=== PATIENT | male | born 1980 | race Caucasian/White ===

== ENCOUNTER 2016-09-25 16:14 | Emergency (ER) | payer MEDICAID, OTHER ==
[~2016-09-25] VITALS: Ht 182.9 cm; Wt 99.8 kg
[~2016-09-25 16:14] MED LIST: CLON1TAB3 PO; CLON1TAB36; LISI40TA PO; LOXA10CA PO; METO-333 PO; OMEP20CA12 PO
--- OUTSIDE RECORDS SUMMARY | 2016-09-25 16:20 | XMS REPORT ---
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 Role Phone PAIGE IRVIN CP Unavailable Allergies, Adverse Reactions, Alerts Substance Reaction Event Type Latex Info Not Available Drug Allergy Problems Problem Type Condition Code Onset Dates Condition Status Assessment Depression F32.9 Active Problem Anxiety F41.9 Active Problem Bipolar 1 disorder with moderate bassam F31.12 Active Problem Essential hypertension I10 Active Problem Bipolar disorder, current episode manic severe with psychotic features F31.2 Active Problem Anxiety disorder, unspecified F41.9 Active Problem Gastritis K29.70 Active Problem Mixed dyslipidemia E78.2 Active Medications Medication Code System Code Instructions Start Date End Date Status Dosage Cialis [facility] [address]-81 5 MG Orally every 24 hrs 1 tablet Klonopin [facility] [address]-75 1 mg Orally 3 times a day 1 tablet Lisinopril [facility] [address]-05 20 MG Orally Once a day Aug 09, 2015 1 tablet Zyprexa Zydis [facility] [address]-70 5 MG Orally once a day Aug 10, 2015 1 tablet on the tongue and allow to dissolve Zantac 150 Maximum Strength [facility] [address]-24 150 MG Orally Twice a day Aug 31, 2015 1 tablet Venlafaxine HCl ER [facility] [address]-43 37.5 MG Orally Once a day Sep 12, 2015 1 tablet with food Procedures Procedure Coding System Code Date Office Visit, Est Pt., Level 3 CPT-4 93654 Sep 12, 2015 Vital Signs Date/Time: Sep 12, 2015 Temperature 98 F Weight 296 lbs Height 70.0 in BMI 42.47 Index Blood Pressure Diastolic 84 mmHg Blood Pressure Systolic 118 mmHg Cardiac Monitoring Heart Rate 76 bpm Results No Known Results Summary Purpose [employer] Submission
[2016-09-25] MEDS ORDERED: LISI-552 (16:39)
[2016-09-25] MEDS ORDERED: ONDANSETRON 4 MG/2 ML (SDV) Z0FRAN IVP ONE (16:45)
[2016-09-25] MEDS ORDERED: NS IV 1000 ML 1,000 ML IV SCH (16:45)
[2016-09-25] MEDS ORDERED: LORazepam INJ 2 MG/ML (ATIVAN) VIAL IVP ONE (16:45)
[2016-09-25 16:57] LABS: BASOPHILS % (AUTO) 0 % (0-10); EOSINOPHILS % (AUTO) 0 % (0-10); LYMPHOCYTES # (AUTO) 1.1 X 10^3 (1.0-4.0); LYMPHOCYTES % (AUTO) 10 % (12-44); MEAN CORPUSCULAR HEMOGLOBIN 30 PG (25-34); MEAN CORPUSCULAR HGB CONC 37 G/DL (32-36); MEAN CORPUSCULAR VOLUME 81 FL (80-99); MEAN PLATELET VOLUME 9.9 FL (7.4-10.4); MONOCYTES # (AUTO) 0.4 X 10^3 (0.0-1.0); MONOCYTES % (AUTO) 4 % (0-12); NEUTROPHILS # (AUTO) 8.8 X 10^3 (1.8-7.8); NEUTROPHILS % (AUTO) 85 % (42-75); PLATELET COUNT 227 10^3/uL (130-400); RED BLOOD COUNT 5.49 10^6/uL (4.35-5.85); RED CELL DISTRIBUTION WIDTH 12.9 % (10.0-14.5); WHITE BLOOD COUNT 10.3 10^3/uL (4.3-11.0)
--- NOTE | 2016-09-25 17:01 | ED General ---
General Chief Complaint: General Problems/Pain Stated Complaint: N,V,D Nursing Triage Note: AMBULATED TO ROOM 03 WITH MULTIPLE COMPLAINTS BUT NOT LIMITED TOO - N/V/D THAT STARTED LAST NOC BUT QUIT 2 HRS AGO, CHEST PAIN OFF AND ON FOR A WEEK BUT CAME BACK TODAY WHILE VOMITING, RIGHT KNEE PAIN AFTER HYPEREXTENDING IT LAST WEEK, AND ANXIETY. ALSO STATES OTHERS IN HIS HOUSE HAS HAD N/V/D. Nursing Sepsis Screen: No Definite Risk Source of Information: Patient Exam Limitations: No Limitations History of Present Illness Time Seen by Provider: 16:58 Initial Comments To ER with nausea vomiting and watery diarrhea that began last night awakening him from sleep at 2 a.m. His children were ill with similar symptoms. State that they ate some chicken that had been following for a long time. He denies abdominal pain. He reports pain to the right knee which has been bothering him for several weeks and he is concerned that he may have a blood clot in that knee as well. No swelling. He does have some shortness of breath but he believes this may be anxiety. He also reports left-sided chest pain that he describes as an "twinge" and seems to be brought about by stress. He does smoke marijuana to help him relax in addition to clonazepam. No fevers or chills. Timing/Duration: 1-2 Days Severity: Moderate Associated Systoms: Chest PainNo Fever/Chills, Nausea/Vomiting Allergies and Home Medications Allergies Coded Allergies: NKANo Known Allergies (Verified Allergy, Unknown, 10/21/06) Home Medications Clonazepam 1 Mg Tablet #90 0.5 MG PO TID (Reported) Lisinopril 20 Mg Tablet #30 (Reported) Constitutional: see HPINo chills, No fever, malaise other (anxious) EENTM: see HPI Respiratory: no symptoms reportedNo hemoptysis, No orthopnea Cardiovascular: see HPI Genitourinary: no symptoms reported Musculoskeletal: no symptoms reported Skin: no symptoms reported Psychiatric/Neurological: No Symptoms Reported Hematologic/Lymphatic: No Symptoms Reported Immunological/Allergic: no symptoms reported Past Wqdjwgq-Wruajn-Lgmuba Hx Patient Social History Alcohol Use: Past History Recreational Drug Use: Yes Drug of Choice: POT Smoking Status: Never a Smoker Recent Foreign Travel: No Contact w/Someone Who Travel: No Recent Infectious Disease Expo: No Recent Hopitalizations: No Immunizations Up To Date Tetanus Booster (TDap): Unknown Surgeries HX Surgeries: Yes (X1 WISDOM TOOTH REMOVED,CUT FINGER REPAIRED) Surgeries: Appendectomy, Gallbladder Respiratory Hx Respiratory Disorders: No Cardiovascular Hx Cardiac Disorders: Yes Cardiac Disorders: Hypertension Reproductive System Hx Reproductive Disorders: No Genitourinary Hx Genitourinary Disorders: Yes (HX AGE 21-26 PERIODS OF INCONT.WHEN DRINKING) Gastrointestinal Hx Gastrointestinal Disorders: Yes Musculoskeletal Hx Musculoskeletal Disorders: No Endocrine Hx Endocrine Disorders: No HEENT HX ENT Disorders: No Cancer Hx Cancer: No Psychosocial Hx Psychiatric Problems: Yes Behavioral Health Disorders: Anxiety, Depression Integumentary HX Skin/Integumentary Disorder: No Blood Transfusions Hx Blood Disorders: No Physical Exam Vital Signs Vital Sign - Last 12Hours 09/25/16 16:25 Temp 98.0 Pulse 126 Resp 18 B/P 131/102 Capillary Refill : Less Than 3 Seconds General Appearance: No Apparent Distress WD/WN Anxious Obese Eyes: Bilateral Eye EOMI, Bilateral Eye Normal Inspection, Bilateral Eye PERRL HEENT: PERRL/EOMI TMs Normal Neck: Full Range of Motion Normal Inspection Respiratory: No Accessory Muscle Use No Respiratory Distress Cardiovascular: Normal Peripheral Pulses Tachycardia Gastrointestinal: Normal Bowel Sounds Non Tender Soft Extremity: Normal Capillary Refill Normal Inspection Other (the right knee is normal in appearance without ecchymosis, erythema, effusion and there is no swelling to the right lower extremity.) Neurologic/Psychiatric: Alert Oriented x3 No Motor/Sensory Deficits Skin: Normal Color Warm/Dry Progress/Results/Core Measures Results/Orders Lab Results Laboratory Tests Test 09/25/16 16:50 Range/Units Alanine Aminotransferase (ALT/SGPT) 18 0-55 U/L Albumin 4.2 3.2-4.5 G/DL Alkaline Phosphatase 65 40-136 U/L Anion Gap 11 5-14 MMOL/L Aspartate Amino Transf (AST/SGOT) 19 5-34 U/L BUN/Creatinine Ratio 15 Basophils # (Auto) 0.0 0.0-0.1 10^3/uL Basophils (%) (Auto) 0 0-10 % Blood Urea Nitrogen 14 7-18 MG/DL Calcium Level 8.7 8.5-10.1 MG/DL Carbon Dioxide Level 20 L 21-32 MMOL/L Chloride Level 101 98-107 MMOL/L Creatinine 0.94 0.60-1.30 MG/DL D-Dimer 0.40 0.00-0.49 UG/ML Eosinophils # (Auto) 0.0 0.0-0.3 10^3/uL Eosinophils (%) (Auto) 0 0-10 % Estimat Glomerular Filtration Rate > 60 Glucose Level 113 H 70-105 MG/DL Hematocrit 44 40-54 % Hemoglobin 16.3 13.3-17.7 G/DL Lymphocytes # (Auto) 1.1 1.0-4.0 X 10^3 Lymphocytes (%) (Auto) 10 L 12-44 % Mean Corpuscular Hemoglobin 30 25-34 PG Mean Corpuscular Hemoglobin Concent 37 H 32-36 G/DL Mean Corpuscular Volume 81 80-99 FL Mean Platelet Volume 9.9 7.4-10.4 FL Monocytes # (Auto) 0.4 0.0-1.0 X 10^3 Monocytes (%) (Auto) 4 0-12 % Neutrophils # (Auto) 8.8 H 1.8-7.8 X 10^3 Neutrophils (%) (Auto) 85 H 42-75 % Platelet Count 227 130-400 10^3/uL Potassium Level 4.2 3.6-5.0 MMOL/L Red Blood Count 5.49 4.35-5.85 10^6/uL Red Cell Distribution Width 12.9 10.0-14.5 % Sodium Level 132 L 135-145 MMOL/L Total Bilirubin 0.7 0.1-1.0 MG/DL Total Protein 7.0 6.4-8.2 G/DL Troponin I < 0.30 <0.30 NG/ML White Blood Count 10.3 4.3-11.0 10^3/uL My Orders Orders-BREANNE SWANSON SYSTEMS ARCHITECTURE ANALYST Cbc With Automated Diff (09/25/16 16:39) Comprehensive Metabolic Panel (09/25/16 16:39) Troponin I (09/25/16 16:39) Ekg Tracing (09/25/16 16:39) Saline Lock/Iv-Start (09/25/16 16:39) Ondansetron Injection (Zofran Injectio (09/25/16 16:45) Lorazepam Injection (Ativan Injection) (09/25/16 16:45) Ns Iv 1000 Ml (Sodium Chloride 0.9%) (09/25/16 16:45) Fibrin Degradation Products (09/25/16 16:52) Albuterol/Ipra Inhalation Soln (Duoneb I (09/25/16 17:15) Svn Sm Volume Nebulizer Rt-Rfs (09/25/16 17:11) Medications Given in ED Current Medications Medications Dose Ordered Sig/Tamra Route Start Time Stop Time Status Last Admin Dose Admin Ondansetron HCl 4 mg ONCE ONCE IVP 09/25/16 16:45 09/25/16 16:46 DC 09/25/16 16:50 4 MG Vital Signs/I&O Vital Sign - Last 12Hours 09/25/16 16:25 Temp 98.0 Pulse 126 Resp 18 B/P 131/102 Blood Pressure Mean: 112 Departure Impression Impression: Primary Impression: Anxiety Additional Impression: Nausea vomiting and diarrhea Disposition: HOME, SELF-CARE Condition: Stable Departure-Patient Inst. Decision time for Depature: 17:28 Referrals: NO,LOCAL PHYSICIAN (PCP/Family) Primary Care Physician Patient Instructions: Nausea and Vomiting, Adult Add. Discharge Instructions: 1. Drink plenty of fluids 2. Return to Er for any concerns 3. Nausea medication as directed 4. see your doctor later this week All discharge instructions reviewed with patient and/or family. Voiced understanding. Scripts Ondansetron (Zofran Odt)8 Mg Tab.rapdis8 Mg PO Q6H PRN NAUSEA/VOMITING #14 TAB Prov:BREANNE SWANSON APRN 09/25/16 BREANNE SWANSON APRN Sep 25, 2016 17:00
[2016-09-25 17:14] LABS: ALANINE AMINOTRANSFERASE 18 U/L (0-55); ALBUMIN 4.2 G/DL (3.2-4.5); ANION GAP 11 MMOL/L (5-14); ASPARTATE AMINO TRANSFERASE 19 U/L (5-34); BILIRUBIN,TOTAL 0.7 MG/DL (0.1-1.0); BLOOD UREA NITROGEN 14 MG/DL (7-18); BUN/CREATININE RATIO 15; CALCIUM 8.7 MG/DL (8.5-10.1); CARBON DIOXIDE 20 MMOL/L (21-32); CHLORIDE 101 MMOL/L (98-107); CREATININE SERUM 0.94 MG/DL (0.60-1.30); GFR ESTIMATED > 60; GLUCOSE 113 MG/DL (70-105); POTASSIUM 4.2 MMOL/L (3.6-5.0); SODIUM 132 MMOL/L (135-145)
[2016-09-25] MEDS ORDERED: RT-ALBUTEROL/IPRATROPIUM 3 ML (DUONEB) VIAL INH ONE (17:15)
[2016-09-25 17:19] LABS: TROPONIN I < 0.30 NG/ML (<0.30)
[2016-09-25] MEDS ORDERED: ONDA8TAB9 PO (17:29)
[2016-09-25 17:47] VITALS: BP 133/96
== END 2016-09-25 17:47 | disposition home or self-care (01) ==
LOC: EDUNIT# 16:14 → ER 16:16
DX: R11.2 Nausea with vomiting, unspecified (principal); R19.7 Diarrhea, unspecified; M79.661 Pain in right lower leg; I10 Essential (primary) hypertension; F41.9 Anxiety disorder, unspecified; F12.10 Cannabis abuse, uncomplicated; Z79.899 Other long term (current) drug therapy
CPT/HCPCS: 36415; 80053; 84484; 85025; 85379; 93005; 96361; 96374

== ENCOUNTER 2016-09-27 13:27 | Emergency (ER) | payer MEDICAID ==
[~2016-09-27] VITALS: Ht 182.9 cm; Wt 131.5 kg
[~2016-09-27 13:27] MED LIST changes: +LISI-552; +ONDA8TAB9 PO
[2016-09-27] MEDS ORDERED: OMEP20TA33 PO (13:46)
[2016-09-27] MEDS ORDERED: CLON1TAB PO (13:46)
--- NOTE | 2016-09-27 14:04 | ED Lower Extremity ---
General Chief Complaint: Lower Extremity Stated Complaint: R KNEE PAIN Nursing Triage Note: PT STATES HE WAS AT HIS [facility] [facility] ABOUT 2 WEEKS AGO, CC OF RT KNEE PAIN AND BI LAT GENERAL LEG PAIN. DENIES ANY TWISTING OR TRAUMA TO KNEE. Nursing Sepsis Screen: No Definite Risk Source: patient Exam Limitations: no limitations (BRYAN MENCHACA MD) History of Present Illness Time seen by provider: 13:59 Initial Comments This 36-year-old white male presents with a complaint of right knee pain. The patient's pain is moderate in degree, sharp in nature, and made worse with prolonged flexion. Patient had a previous medial collateral injury years ago which was treated conservatively with physical therapy. Patient denies recent trauma to the right knee. He has noted no swelling. Fortunately the patient's knee pain over the last several days is improving. He does not have an orthopedic surgeon. The patient has been under significant stress recently as he is self continued marijuana 4 days ago. (BRYAN MENCHACA MD) Allergies and Home Medications Allergies Coded Allergies: NKANo Known Allergies (Verified Allergy, Unknown, 10/21/06) Home Medications Clonazepam 1 Mg Tablet 1 MG PO TID (Reported) Lisinopril 20 Mg Tablet #30 (Reported) Naproxen 500 Mg Tablet #20 500 MG PO BID PRN PRN PAIN Prescribed by: TAMELA SIMENTAL on 09/27/16 1506 Omeprazole Magnesium 20 Mg Tablet.dr 20 MG PO PRN (Reported) Prednisone 20 Mg Tab #10 40 MG PO DAILY Prescribed by: TAMELA SIMENTAL on 09/27/16 1506 Constitutional: No chills, No fever EENTM: No blurred vision, No ear pain Respiratory: No cough Cardiovascular: No chest pain Gastrointestinal: No abdominal pain, No diarrhea, No nausea Genitourinary: No dysuria, No frequency Musculoskeletal: No back pain, joint pain (right knee) Skin: No change in color, No rash Psychiatric/Neurological: No Symptoms Reported (BRYAN MENCHACA MD) Past Hjgiyic-Dbpkyf-Luazrf Hx Patient Social History Alcohol Use: Denies Use Recreational Drug Use: Yes (THC) Drug of Choice: POT Smoking Status: Former Smoker Type Used: Cigarettes 2nd Hand Smoke Exposure: No Recent Foreign Travel: No Contact w/Someone Who Travel: No Recent Infectious Disease Expo: No Recent Hopitalizations: No (BRYAN MENCHACA MD) Immunizations Up To Date Tetanus Booster (TDap): Unknown (BRYAN MENCHACA MD) Seasonal Allergies Seasonal Allergies: Yes (BRYAN MENCHACA MD) Surgeries HX Surgeries: Yes (X1 WISDOM TOOTH REMOVED,CUT FINGER REPAIRED) Surgeries: Appendectomy, Gallbladder (BRYAN MENCHACA MD) Respiratory Hx Respiratory Disorders: No (BRYAN MENCHACA MD) Cardiovascular Hx Cardiac Disorders: Yes Cardiac Disorders: Hypertension (BRYAN MENCHACA MD) Neurological Hx Neurological Disorders: No (BRYAN MENCHACA MD) Reproductive System Hx Reproductive Disorders: No (BRYAN MENCHACA MD) Genitourinary Hx Genitourinary Disorders: Yes (HX AGE 21-26 PERIODS OF INCONT.WHEN DRINKING) (BRYAN MENCHACA MD) Gastrointestinal Hx Gastrointestinal Disorders: No (BRYAN MENCHACA MD) Musculoskeletal Hx Musculoskeletal Disorders: Yes Musculoskeletal Disorders: Chronic Back Pain (BRYAN MENCHACA MD) Endocrine Hx Endocrine Disorders: No (BRYAN MENCHACA MD) HEENT HX ENT Disorders: No (BRYAN MENCHACA MD) Cancer Hx Cancer: No (BRYAN MENCHACA MD) Psychosocial Hx Psychiatric Problems: Yes Behavioral Health Disorders: Anxiety, Depression (BRYAN MENCHACA MD) Integumentary HX Skin/Integumentary Disorder: No (BRYAN MENCHACA MD) Blood Transfusions Hx Blood Disorders: No (BRYAN MENCHACA MD) Reviewed Nursing Assessment Reviewed/Agree w Nursing PMH: Yes (BRYAN MENCHACA MD) Physical Exam Vital Signs Vital Sign - Last 12Hours 09/27/16 13:35 Temp 97.4 Pulse 97 Resp 20 B/P 142/99 Pulse Ox 99 O2 Delivery Room Air (TAMELA SIMENTAL) Vital Signs Capillary Refill : Less Than 3 Seconds (BRYAN MENCHACA MD) General Appearance: WD/WN no apparent distress HEENT: normal ENT inspection Neck: normal inspection Cardiovascular: regular rate, rhythm Respiratory: normal breath sounds Gastrointestinal: normal bowel sounds soft Back: normal inspection Hips: bilateral hip non-tender, bilateral hip normal inspection, bilateral hip normal range of motion Legs: bilateral leg non-tender, bilateral leg normal inspection, bilateral leg normal range of motion Knees: bilateral knee non-tender, bilateral knee normal inspection, bilateral knee normal range of motion Ankles: bilateral ankle non-tender, bilateral ankle normal inspection, bilateral ankle normal range of motion Feet: bilateral foot non-tender, bilateral foot normal inspection Neurologic/Tendon: normal sensation normal motor functions normal tendon functions Neurologic/Psychiatric: no motor/sensory deficits alert normal mood/affect oriented x 3 Skin: normal color warm/dry (BRYAN MENCHACA MD) Progress/Results/Core Measures Results/Orders Vital Signs/I&O Vital Sign - Last 12Hours 09/27/16 13:35 Temp 97.4 Pulse 97 Resp 20 B/P 142/99 Pulse Ox 99 O2 Delivery Room Air (TAMELA SIMENTAL) Blood Pressure Mean: 113 Diagnostic Imaging Diagonstic Imaging: Xray Plain Films/CT/US/NM/MRI: knee Comments FINDINGS: There is no acute fracture or dislocation. There is no significant knee effusion. There is small spurring involving the superior patellar near the quadriceps attachment. IMPRESSION: 1.: There is no acute fracture or dislocation. 2: There is mild spurring involving the superior aspect of the patella. Dictated on workstation # [id number] Reviewed: Reviewed by Me (radiology report reviewed by me) (TAMELA SIMENTAL) Departure Communication Progress Notes Patient seen and evaluated with Dr. Menchaca. Radiology findings discussed with the patient. Plan for discharge to home. (TAMELA SIMENTAL) Impression Impression: Primary Impression: Sprain of knee Disposition: 01 HOME, SELF-CARE Condition: Improved Departure-Patient Inst. Decision time for Depature: 15:04 (TAMELA SIMENTAL) Referrals: [facility] (PCP/Family) Primary Care Physician Patient Instructions: Knee Sprain (DC) Add. Discharge Instructions: All discharge instructions reviewed with patient and/or family. Voiced understanding. Medications as instructed. Tylenol Extra Strength over-the- counter as directed for pain. Elevate the right knee on pillows. Ice packs or heating pads as needed for pain. Activity as tolerated. Follow-up with your family practitioner if no improvement in symptoms in 7-10 days for possible need of outpatient MRI of the knee. Return to the emergency department for worsened symptoms or any other concerns. Scripts Naproxen (Naprosyn)500 Mg [id number] Mg PO BID PRN PAIN #20 TAB Ref 0 Prov:TAMELA SIMENTAL 09/27/16 Prednisone 20 Mg Tab40 Mg PO DAILY #10 TAB Ref 0 Prov:TAMELA SIMENTAL 09/27/16 BRYAN MENCHACA MD Sep 27, 2016 14:03 TAMELA SIMENTAL Sep 27, 2016 15:06
--- NOTE | 2016-09-27 14:22 | Diagnostic Imaging Report ---
CLINICAL INDICATION: Patient with right knee pain x2 weeks. No known injury. EXAM: X-ray of the right knee, three views. COMPARISON: None. FINDINGS: There is no acute fracture or dislocation. There is no significant knee effusion. There is small spurring involving the superior patellar near the quadriceps attachment. IMPRESSION: 1.: There is no acute fracture or dislocation. 2: There is mild spurring involving the superior aspect of the patella. Dictated by: Dictated on workstation # [id number]
[2016-09-27] MEDS ORDERED: PRD20T PO (15:06)
[2016-09-27] MEDS ORDERED: NAPR500T PO (15:06)
[2016-09-27 15:15] VITALS: BP 142/99
== END 2016-09-27 15:15 | disposition home or self-care (01) ==
LOC: EDUNIT# 13:27 → ER 13:28
DX: S89.91XA Unspecified injury of right lower leg, initial encounter (principal); F12.10 Cannabis abuse, uncomplicated; Z87.891 Personal history of nicotine dependence; X58.XXXA Exposure to other specified factors, initial encounter; Y92.39 Other specified sports and athletic area as the place of occurrence of the external cause; Y99.8 Other external cause status
CPT/HCPCS: 73562; 99283

== ENCOUNTER 2017-04-12 22:56 | Emergency (ER) | payer MEDICAID ==
[~2017-04-12] VITALS: Ht 182.9 cm; Wt 131.5 kg
[~2017-04-12 22:56] MED LIST changes: +CLON1TAB PO; +NAPR500T PO; +OMEP20TA33 PO; +PRD20T PO
[2017-04-12] MEDS ORDERED: OMEP20TA33 PO (23:38)
[2017-04-12] MEDS ORDERED: CLON1TAB PO (23:38)
[2017-04-13] MEDS ORDERED: LIDOCAINE 2% VISCOUS 15 ML UDC PO ONE (00:15)
[2017-04-13] MEDS ORDERED: FAMOTIDINE 20 MG (PEPCID) TABLET PO ONE (00:15)
[2017-04-13] MEDS ORDERED: ANTACID SUSP 30 ML UDC (MYLANTA) PO ONE (00:15)
--- NOTE | 2017-04-13 00:19 | ED Chest Pain ---
General Chief Complaint: Abdominal/GI Problems Stated Complaint: AB PAIN FEELS LIKE CHEST IS BURNING Nursing Triage Note: patient reports abdomen pain and reflux. patient reports he is withdrawing from [facility] Nursing Sepsis Screen: No Definite Risk Source: patient Exam Limitations: no limitations History of Present Illness Time seen by provider: 00:11 Initial Comments Patient has ER by private conveyance with chief complaint of chest pain in the middle of his substernal chest. It does not radiate anywhere. Does not have any numbness weakness or tingling in his arm jaw or neck. He does not have any nausea vomiting or diarrhea. He states he about a week ago started feeling some upper respiratory tract infection sinus headaches and runny nose so he stopped smoking his cannabis that he routinely uses for anxiety relief. Since that time he says he felt a different kind of pain in the middle of his chest that he is having tonight. He has been worked up several times in the outpatient clinic by his doctor in the [facility] for his chest pain and always attributed to anxiety. He states he's never had a cardiac catheterization or stress test. He has no primary family history nor personal history of coronary disease. He has no thyroid or blood pressure issues. Other than cannabis does not smoke tobacco. He is not having any sweats, fever, chills, constipation. Allergies and Home Medications Allergies Coded Allergies: NKANo Known Allergies (Verified Allergy, Unknown, 10/21/06) Home Medications Clonazepam 1 Mg Tablet, 1 MG PO TID, (Reported) Omeprazole Magnesium 20 Mg Tablet.dr, 20 MG PO, (Reported) Review of Systems Constitutional: No chills, No diaphoresis, No dizziness, No fever EENTM: No Blurred Vision, No Double Vision Respiratory: Denies Cough, Denies Shortness of Air Cardiovascular: See HPI, Chest Pain, Denies Irregular Heart Rate, Denies Palpitations, Denies Syncope Gastrointestinal: Denies Abdominal Pain, Denies Constipated, Diarrhea, Denies Nausea, Denies Vomiting Genitourinary: Denies Burning, Denies Discharge Musculoskeletal: No back pain, No joint pain Skin: No pruritus, No rash Psychiatric/Neurological: Denies Headache, Denies Numbness Past Fyujuoj-Untajc-Zzmrsh Hx Patient Social History Alcohol Use: Denies Use Recreational Drug Use: No Drug of Choice: POT Smoking Status: Never a Smoker Type Used: Cigarettes 2nd Hand Smoke Exposure: No Recent Foreign Travel: No Contact w/Someone Who Travel: No Recent Infectious Disease Expo: No Recent Hopitalizations: No Immunizations Up To Date Tetanus Booster (TDap): Unknown Seasonal Allergies Seasonal Allergies: Yes Surgeries HX Surgeries: Yes (X1 WISDOM TOOTH REMOVED,CUT FINGER REPAIRED) Surgeries: Appendectomy, Gallbladder Respiratory Hx Respiratory Disorders: No Cardiovascular Hx Cardiac Disorders: Yes Cardiac Disorders: Hypertension Neurological Hx Neurological Disorders: No Reproductive System Hx Reproductive Disorders: No Genitourinary Hx Genitourinary Disorders: Yes (HX AGE 21-26 PERIODS OF INCONT.WHEN DRINKING) Gastrointestinal Hx Gastrointestinal Disorders: No Musculoskeletal Hx Musculoskeletal Disorders: Yes Musculoskeletal Disorders: Chronic Back Pain Endocrine Hx Endocrine Disorders: No HEENT HX ENT Disorders: No Cancer Hx Cancer: No Psychosocial Hx Psychiatric Problems: Yes Behavioral Health Disorders: Anxiety, Depression Integumentary HX Skin/Integumentary Disorder: No Blood Transfusions Hx Blood Disorders: No Physical Exam Vital Signs Vital Sign - Last 12Hours 04/12/17 23:00 Temp 98.2 Pulse 112 Resp 18 B/P (MAP) 151/109 Pulse Ox 98 O2 Delivery Room Air Capillary Refill : Less Than 3 Seconds General Appearance: WD/WN, Anxious HEENT: PERRL/EOMI, TMs Normal, Normal ENT Inspection, Pharynx Normal Neck: Normal Inspection, Non Tender, Supple Respiratory: Chest Non Tender, Lungs Clear, Normal Breath Sounds, No Accessory Muscle Use Cardiovascular: Regular Rate, Rhythm, No Edema, No Murmur, Normal Peripheral Pulses Gastrointestinal: Normal Bowel Sounds, Non Tender, Soft Extremity: Normal Capillary Refill, No Pedal Edema Neurologic/Psychiatric: Alert, Oriented x3, No Motor/Sensory Deficits Skin: Normal Color, Warm/Dry Progress/Results/Core Measures Results/Orders Lab Results Laboratory Tests Test 04/13/17 00:46 Range/Units White Blood Count 6.0 4.3-11.0 10^3/uL Red Blood Count 5.13 4.35-5.85 10^6/uL Hemoglobin 14.9 13.3-17.7 G/DL Hematocrit 42 40-54 % Mean Corpuscular Volume 82 80-99 FL Mean Corpuscular Hemoglobin 29 25-34 PG Mean Corpuscular Hemoglobin Concent 36 32-36 G/DL Red Cell Distribution Width 12.8 10.0-14.5 % Platelet Count 218 130-400 10^3/uL Mean Platelet Volume 9.8 7.4-10.4 FL Neutrophils (%) (Auto) 60 42-75 % Lymphocytes (%) (Auto) 29 12-44 % Monocytes (%) (Auto) 9 0-12 % Eosinophils (%) (Auto) 2 0-10 % Basophils (%) (Auto) 1 0-10 % Neutrophils # (Auto) 3.6 1.8-7.8 X 10^3 Lymphocytes # (Auto) 1.7 1.0-4.0 X 10^3 Monocytes # (Auto) 0.5 0.0-1.0 X 10^3 Eosinophils # (Auto) 0.1 0.0-0.3 10^3/uL Basophils # (Auto) 0.0 0.0-0.1 10^3/uL Sodium Level 138 135-145 MMOL/L Potassium Level 3.9 3.6-5.0 MMOL/L Chloride Level 102 98-107 MMOL/L Carbon Dioxide Level 26 21-32 MMOL/L Anion Gap 10 5-14 MMOL/L Blood Urea Nitrogen 11 7-18 MG/DL Creatinine 1.03 0.60-1.30 MG/DL Estimat Glomerular Filtration Rate > 60 BUN/Creatinine Ratio 11 Glucose Level 91 70-105 MG/DL Calcium Level 9.8 8.5-10.1 MG/DL Magnesium Level 2.3 1.8-2.4 MG/DL Total Bilirubin 0.5 0.1-1.0 MG/DL Aspartate Amino Transf (AST/SGOT) 26 5-34 U/L Alanine Aminotransferase (ALT/SGPT) 26 0-55 U/L Alkaline Phosphatase 53 40-136 U/L Troponin I < 0.30 <0.30 NG/ML Total Protein 7.0 6.4-8.2 GM/DL Albumin 4.3 3.2-4.5 GM/DL My Orders Orders - AUBREY MONTALVO Cbc With Automated Diff (04/13/17 00:12) Comprehensive Metabolic Panel (04/13/17 00:12) Magnesium (04/13/17 00:12) Chest Pa/Lat (2 View) (04/13/17 00:12) Antacid Suspension (Mylanta Suspension (04/13/17 00:15) Lidocaine 2% Viscous 15 Ml (Xylocaine Vi (04/13/17 00:15) Famotidine Tablet (Pepcid Tablet) (04/13/17 00:15) Troponin I (04/13/17 00:12) Ekg Tracing (04/13/17 00:12) Continuous Ekg Monitoring (04/13/17 00:12) Medications Given in ED Current Medications Medications Dose Ordered Sig/Tamra Route Start Time Stop Time Status Last Admin Dose Admin Al Hydrox/Mg Hydrox/Simethicone 30 ml ONCE ONCE PO 04/13/17 00:15 04/13/17 00:17 DC 04/13/17 00:43 30 ML Famotidine 20 mg ONCE ONCE PO 04/13/17 00:15 04/13/17 00:17 DC 04/13/17 00:43 20 MG Lidocaine HCl 15 ml ONCE ONCE PO 04/13/17 00:15 04/13/17 00:17 DC 04/13/17 00:43 15 ML Vital Signs/I&O Vital Sign - Last 12Hours 04/12/17 23:00 Temp 98.2 Pulse 112 Resp 18 B/P (MAP) 151/109 Pulse Ox 98 O2 Delivery Room Air Blood Pressure Mean: 123 Progress Note #1: Time: 01:24 Progress Note Patient presents with a chief concern that he might be having a heart attack. Wants know how this should be worked up and is asking for a heart catheter if it 's necessary. Seems to have a lot of anxiety and is using Klonopin to control it and has a primary doctor who is been helping him with this. We will check a troponin and EKG and chest x-ray since he's been having some chest symptoms as well as we'll give him a GI cocktail. If his symptoms improve and the lab and EKG are unremarkable and we would let him go home discuss with his primary care physician doing some stress testing. Other than his brother having a CVA at age 36 and his history of smoking there are no significant cardiac risk factors and have be reasonable for him to follow up outpatient. Heart scores of 1 point; low risk. ED ACS scores 8 points; low and reasonable to discharge with a normal EKG and troponin. Progress Note #2: Time: 01:44 Progress Note feels that his intermittent chest pain improved significantly on the GI cocktail. He is concerned that his symptoms are more reflux and anxiety related. He is been taking Prilosec for his acid reflux for over 10 years and feels like it has helped well past but is afraid maybe is not working so well anymore. We discussed long-term concerns with the use of PPIs and he should talk to his primary care physician about seeking alternative treatment or workup for his chest pain and GI symptoms. ECG Initial ECG Impression Date: Apr 13, 2017 Initial ECG Impression Time: 00:47 Initial ECG Rate: 92 Initial ECG Rhythm: Normal Sinus Initial ECG Intervals: Normal Initial ECG Impression: Normal, Nonspecific Changes Initial ECG Comparisson: No Previous ECG Available Comment No ST wave elevation or depression Diagnostic Imaging Diagonstic Imaging: Xray Plain Films/CT/US/NM/MRI: chest Comments No acute cardiopulmonary processes noted. Reviewed: Reviewed by Me Departure Impression Impression: Primary Impression: Chest pain Qualified Codes: R07.89 - Other chest pain Disposition: HOME, SELF-CARE Condition: Stable Departure-Patient Inst. Decision time for Depature: 01:45 Referrals: [facility] (PCP/Family) Primary Care Physician Patient Instructions: Chest Pain That Is Not Caused by the Heart (DC) Add. Discharge Instructions: Follow-up with your primary care provider in the next 1-2 weeks and consider further workup for causes for your chest pain as well as management of your anxiety. Discussed the concerns with using PPIs long-term with your primary care physician and reasonable alternatives. If your chest pain comes back he would be reasonable to try using an antacid such as Tums to see if this makes a difference as this may be beneficial in your further workup and diagnosis of your symptoms. It may be reasonable to do a cardiac stress test outpatient. If you have new or worsening symptoms you can return to the ER for follow-up with your primary care physician during business hours. All discharge instructions reviewed with patient and/or family. Voiced understanding. Copy Copies To 1: EDDIE GLASS TITUS J Apr 13, 2017 00:19
[2017-04-13 00:55] LABS: BASOPHILS % (AUTO) 1 % (0-10); EOSINOPHILS # (AUTO) 0.1 10^3/uL (0.0-0.3); EOSINOPHILS % (AUTO) 2 % (0-10); LYMPHOCYTES # (AUTO) 1.7 X 10^3 (1.0-4.0); LYMPHOCYTES % (AUTO) 29 % (12-44); MEAN CORPUSCULAR HEMOGLOBIN 29 PG (25-34); MEAN CORPUSCULAR HGB CONC 36 G/DL (32-36); MEAN CORPUSCULAR VOLUME 82 FL (80-99); MEAN PLATELET VOLUME 9.8 FL (7.4-10.4); MONOCYTES # (AUTO) 0.5 X 10^3 (0.0-1.0); MONOCYTES % (AUTO) 9 % (0-12); NEUTROPHILS # (AUTO) 3.6 X 10^3 (1.8-7.8); NEUTROPHILS % (AUTO) 60 % (42-75); PLATELET COUNT 218 10^3/uL (130-400); RED BLOOD COUNT 5.13 10^6/uL (4.35-5.85); RED CELL DISTRIBUTION WIDTH 12.8 % (10.0-14.5)
[2017-04-13 01:14] LABS: ALANINE AMINOTRANSFERASE 26 U/L (0-55); ALBUMIN 4.3 GM/DL (3.2-4.5); ANION GAP 10 MMOL/L (5-14); ASPARTATE AMINO TRANSFERASE 26 U/L (5-34); BILIRUBIN,TOTAL 0.5 MG/DL (0.1-1.0); BLOOD UREA NITROGEN 11 MG/DL (7-18); BUN/CREATININE RATIO 11; CALCIUM 9.8 MG/DL (8.5-10.1); CARBON DIOXIDE 26 MMOL/L (21-32); CHLORIDE 102 MMOL/L (98-107); CREATININE SERUM 1.03 MG/DL (0.60-1.30); GFR ESTIMATED > 60; GLUCOSE 91 MG/DL (70-105); MAGNESIUM 2.3 MG/DL (1.8-2.4); POTASSIUM 3.9 MMOL/L (3.6-5.0); SODIUM 138 MMOL/L (135-145)
[2017-04-13 01:20] LABS: TROPONIN I < 0.30 NG/ML (<0.30)
[2017-04-13 01:49] VITALS: BP 137/97
--- NOTE | 2017-04-13 07:19 | Diagnostic Imaging Report ---
Clinical indication: Patient complains of anxiety, not feeling well for the past few days. Exam: Chest x-ray PA and lateral views. Comparisons: None. Findings: Lungs/pleura: Lungs are clear. There is no pneumothorax. There is no pleural effusion. Mediastinum: Unremarkable. Pulmonary vasculature: Unremarkable. Heart: Unremarkable. Bones/extrathoracic soft tissue: Unremarkable. Impression: There is no radiographic evidence of acute cardiopulmonary process. Dictated by: Dictated on workstation # [id number]
== END 2017-04-13 01:49 | disposition home or self-care (01) ==
LOC: EDUNIT# 22:56 → ER 22:58
DX: R07.2 Precordial pain (principal); F41.9 Anxiety disorder, unspecified; F32.9 Major depressive disorder, single episode, unspecified; I10 Essential (primary) hypertension; Z90.49 Acquired absence of other specified parts of digestive tract
CPT/HCPCS: 36415; 71020; 80053; 83735; 84484; 85025; 93005

== ENCOUNTER → 2018-01-20 | Outpatient (CLI) | payer MEDICAID ==
[~2018-01-20] MED LIST changes: +NAPR-1071 PO; -NAPR500T PO
[2018-01-20 10:50] LABS: BASOPHILS # (AUTO) 0.1 10^3/uL (0.0-0.1); BASOPHILS % (AUTO) 1 % (0-10); EOSINOPHILS # (AUTO) 0.2 10^3/uL (0.0-0.3); EOSINOPHILS % (AUTO) 3 % (0-10); HEMATOCRIT 40 % (40-54); HEMOGLOBIN 14.1 G/DL (13.3-17.7); LYMPHOCYTES # (AUTO) 1.8 X 10^3 (1.0-4.0); LYMPHOCYTES % (AUTO) 38 % (12-44); MEAN CORPUSCULAR HEMOGLOBIN 30 PG (25-34); MEAN CORPUSCULAR HGB CONC 35 G/DL (32-36); MEAN CORPUSCULAR VOLUME 84 FL (80-99); MONOCYTES # (AUTO) 0.4 X 10^3 (0.0-1.0); MONOCYTES % (AUTO) 8 % (0-12); NEUTROPHILS # (AUTO) 2.4 X 10^3 (1.8-7.8); NEUTROPHILS % (AUTO) 50 % (42-75); PLATELET COUNT 193 10^3/uL (130-400); RED BLOOD COUNT 4.75 10^6/uL (4.35-5.85); RED CELL DISTRIBUTION WIDTH 13.3 % (10.0-14.5); WHITE BLOOD COUNT 4.8 10^3/uL (4.3-11.0)
[2018-01-20 11:15] LABS: ALANINE AMINOTRANSFERASE 24 U/L (0-55); ALKALINE PHOSPHATASE 50 U/L (40-136); BILIRUBIN,TOTAL 0.5 MG/DL (0.1-1.0); BUN/CREATININE RATIO 16; CALCIUM 8.9 MG/DL (8.5-10.1); CARBON DIOXIDE 24 MMOL/L (21-32); CHLORIDE 107 MMOL/L (98-107); CHOLESTEROL 180 MG/DL (< 200); CREATININE SERUM 0.77 MG/DL (0.60-1.30); GFR ESTIMATED > 60; GLUCOSE 88 MG/DL (70-105); HDL CHOLESTEROL 33 MG/DL (40-60); MAGNESIUM 2.1 MG/DL (1.8-2.4); POTASSIUM 4.3 MMOL/L (3.6-5.0); SODIUM 138 MMOL/L (135-145); TOTAL PROTEIN 6.6 GM/DL (6.4-8.2); TRIGLYCERIDES 190 MG/DL (<150); VLDL CHOLESTEROL 38 MG/DL (5-40)
[2018-01-20 11:41] LABS: FREE T4 (FREE THYROXINE) 0.82 NG/DL (0.70-1.48)
== END ==
LOC: LAB 10:14
PROVIDERS: ATTEND Nurse Practitioner Family
DX: I10 Essential (primary) hypertension (principal); K21.9 Gastro-esophageal reflux disease without esophagitis; F41.9 Anxiety disorder, unspecified
CPT/HCPCS: 36415; 80053; 80061; 82607; 83735; 84439; 84443; 85025

== ENCOUNTER 2018-03-21 23:07 | Emergency (ER) | payer MEDICAID ==
[~2018-03-21] VITALS: Ht 182.9 cm; Wt 122.5 kg
[~2018-03-21 23:07] MED LIST changes: -CLON1TAB3 PO; +CLON1TAB4 PO
[2018-03-21] MEDS ORDERED: FAMOTIDINE 20 MG (PEPCID) TABLET PO STA (23:18)
--- NOTE | 2018-03-21 23:24 | ED Chest Pain ---
General Stated Complaint: CP Source: patient Exam Limitations: no limitations History of Present Illness Date Seen by Provider: Mar 21, 2018 Time Seen by Provider: 23:13 Initial Comments Patient presents to ER by private conveyance with a chief complaint of chest burning substernal for the past for 5 days. Couple times she's felt some burning sensation in bilateral shoulders. He's had some nausea with regurgitation but no vomiting. He has a history of GERD and recently stopped taking his Pepcid and started taking omeprazole instead. He does not have a primary history or family history of coronary artery disease early onset. He does have a history of high blood pressure and uses lisinopril as well as anxiety and has used Klonopin as needed with his most recent dose being 2 hours prior to arrival. He says that his heart is racing because he so scared right now and having an bit of an anxiety attack. He says usually he will use Gaviscon but he did not take any tonight because he knew we would be giving him something. He had an EGD many years ago at [place], [place] and they found gastritis put him on some PPIs. He does not smoke. He is not have hypothyroidism or hypercholesterolemia. No history of stroke. He says he does use E cigarettes and marijuana with his last use just prior to coming in. He says without the marijuana he would not of been able to make it into the ER. Allergies and Home Medications Allergies Coded Allergies: Viri Known Allergies (Verified Allergy, Unknown, 10/21/06) Home Medications Clonazepam 1 Mg Tablet, 1 MG PO TID, (Reported) Patient Home Medication List Home Medication List Reviewed: Yes Review of Systems Constitutional: No chills, No diaphoresis EENTM: No Blurred Vision, No Double Vision, No Throat Swelling; Other (sore throat) Respiratory: Denies Cough, Denies Shortness of Air Cardiovascular: See HPI, Chest Pain; Denies Edema, Denies Irregular Heart Rate , Denies Lightheadedness, Denies Palpitations, Denies Syncope Gastrointestinal: Denies Abdomen Distended, Denies Abdominal Pain Genitourinary: Denies Burning, Denies Discharge Musculoskeletal: No back pain, No joint pain Skin: No pruritus, No rash Past Dkjhsqq-Eoebdn-Exnfuq Hx Patient Social History Alcohol Use: Denies Use Recreational Drug Use: Yes Drug of Choice: POT Smoking Status: Former Smoker Type Used: Cigarettes, Electronic/Vapor 2nd Hand Smoke Exposure: No Recent Hopitalizations: No Immunizations Up To Date Tetanus Booster (TDap): Unknown Seasonal Allergies Seasonal Allergies: Yes Past Medical History Surgeries: Yes (X1 WISDOM TOOTH REMOVED,CUT FINGER REPAIRED) Appendectomy, Gallbladder Respiratory: No Cardiac: Yes Hypertension Neurological: No Reproductive Disorders: No Gastrointestinal: No Musculoskeletal: Yes Chronic Back Pain Endocrine: No Cancer: No Psychosocial: Yes Anxiety, Depression Integumentary: No Blood Disorders: No Physical Exam Vital Signs Vital Signs - First Documented 03/21/18 23:08 Temp 99.6 Pulse 117 Resp 15 B/P (MAP) 143/102 (116) Pulse Ox 100 O2 Delivery Room Air Capillary Refill : Height, Weight, BMI Height: 6'0" Weight: 290lbs. oz. 131.573651ht; 40.68 BMI Method:Stated General Appearance: No Apparent Distress, WD/WN, Anxious HEENT: PERRL/EOMI, Pharynx Normal, Moist Mucous Membranes Neck: Full Range of Motion, Supple Respiratory: Chest Non Tender, Lungs Clear, Normal Breath Sounds, No Accessory Muscle Use, No Respiratory Distress Cardiovascular: Regular Rate, Rhythm, Normal Peripheral Pulses Gastrointestinal: Normal Bowel Sounds, Non Tender, Soft Extremity: Normal Capillary Refill, Normal Inspection, No Pedal Edema Neurologic/Psychiatric: Alert, Oriented x3, No Motor/Sensory Deficits, Normal Mood/Affect, slider assembler II-XII Norm as Tested Skin: Normal Color, Warm/Dry Progress/Results/Core Measures Results/Orders Lab Results Laboratory Tests Test 03/21/18 23:15 Range/Units White Blood Count 8.2 4.3-11.0 10^3/uL Red Blood Count 5.01 4.35-5.85 10^6/uL Hemoglobin 15.1 13.3-17.7 G/DL Hematocrit 42 40-54 % Mean Corpuscular Volume 84 80-99 FL Mean Corpuscular Hemoglobin 30 25-34 PG Mean Corpuscular Hemoglobin Concent 36 32-36 G/DL Red Cell Distribution Width 13.0 10.0-14.5 % Platelet Count 255 130-400 10^3/uL Mean Platelet Volume 9.6 7.4-10.4 FL Neutrophils (%) (Auto) 47 42-75 % Lymphocytes (%) (Auto) 42 12-44 % Monocytes (%) (Auto) 7 0-12 % Eosinophils (%) (Auto) 3 0-10 % Basophils (%) (Auto) 1 0-10 % Neutrophils # (Auto) 3.9 1.8-7.8 X 10^3 Lymphocytes # (Auto) 3.4 1.0-4.0 X 10^3 Monocytes # (Auto) 0.6 0.0-1.0 X 10^3 Eosinophils # (Auto) 0.3 0.0-0.3 10^3/uL Basophils # (Auto) 0.1 0.0-0.1 10^3/uL Prothrombin Time 14.5 12.2-14.7 SEC INR Comment 1.1 0.8-1.4 Activated Partial Thromboplast Time 34 24-35 SEC Sodium Level 137 135-145 MMOL/L Potassium Level 3.9 3.6-5.0 MMOL/L Chloride Level 104 98-107 MMOL/L Carbon Dioxide Level 22 21-32 MMOL/L Anion Gap 11 5-14 MMOL/L Blood Urea Nitrogen 12 7-18 MG/DL Creatinine 1.08 0.60-1.30 MG/DL Estimat Glomerular Filtration Rate > 60 BUN/Creatinine Ratio 11 Glucose Level 120 H 70-105 MG/DL Calcium Level 9.6 8.5-10.1 MG/DL Magnesium Level 2.3 1.8-2.4 MG/DL Total Bilirubin 0.5 0.1-1.0 MG/DL Aspartate Amino Transf (AST/SGOT) 22 5-34 U/L Alanine Aminotransferase (ALT/SGPT) 16 0-55 U/L Alkaline Phosphatase 62 40-136 U/L Myoglobin 61.2 10.0-92.0 NG/ML Troponin I < 0.30 <0.30 NG/ML Total Protein 7.3 6.4-8.2 GM/DL Albumin 4.5 3.2-4.5 GM/DL Lipase 25 8-78 U/L Group A Streptococcus Screen NEGATIVE NEGATIVE My Orders Orders - AUBREY MONTALVO Cbc With Automated Diff (03/21/18 23:18) Magnesium (03/21/18 23:18) Chest 1 View, Ap/Pa Only (03/21/18 23:18) Ekg Tracing (03/21/18 23:18) Cardiac Profile 1 (03/21/18 23:18) Comprehensive Metabolic Panel (03/21/18 23:18) Myoglobin Serum (03/21/18 23:18) Protime With Inr (03/21/18 23:18) Partial Thromboplastin Time (03/21/18 23:18) O2 (03/21/18 23:18) Monitor-Rhythm Ecg Trace Only (03/21/18 23:18) Lipid Panel (03/22/18 06:00) Aspirin Chewable Tablet (Baby Aspirin Ch (03/21/18 23:30) Saline Lock/Iv-Start (03/21/18 23:18) Lipase (03/21/18 23:18) Hydroxyzine Oral (Vistaril Capsule) (03/21/18 23:30) Lidocaine 2% Viscous 15 Ml (Xylocaine Vi (03/21/18 23:30) Famotidine Tablet (Pepcid Tablet) (03/21/18 23:18) Antacid Suspension (Mylanta Suspension (03/21/18 23:30) Promethazine Tablet (Phenergan Tablet) (03/21/18 23:30) Rapid Strep A Screen (03/21/18 23:20) Medications Given in ED Current Medications Medications Dose Ordered Sig/Tamra Route Start Time Stop Time Status Last Admin Dose Admin Al Hydrox/Mg Hydrox/Simethicone 30 ml ONCE ONCE PO 03/21/18 23:30 03/21/18 23:31 DC 03/21/18 23:29 30 ML Aspirin 324 mg ONCE ONCE PO 03/21/18 23:30 03/21/18 23:31 DC 03/21/18 23:29 324 MG Hydroxyzine Pamoate 25 mg ONCE ONCE PO 03/21/18 23:30 03/21/18 23:31 DC 03/21/18 23:29 25 MG Lidocaine HCl 15 ml ONCE ONCE PO 03/21/18 23:30 03/21/18 23:31 DC 03/21/18 23:29 15 ML Promethazine HCl 25 mg ONCE ONCE PO 03/21/18 23:30 03/21/18 23:31 DC 03/21/18 23:29 25 MG Vital Signs/I&O 03/21/18 23:08 Temp 99.6 Pulse 117 Resp 15 B/P (MAP) 143/102 (116) Pulse Ox 100 O2 Delivery Room Air Progress Progress Note #1: Time: 23:28 Progress Note EKG unremarkable. There is no evidence for coronary disease by history, clinical exam. We'll get labs but this seems like GERD and anxiety. The patient even admits that he thinks it's just his GERD and anxiety attack. We will start with some Vistaril and Phenergan for his nausea and anxiety as well as a GI cocktail and some Pepcid. ED ACS would be 4 points but the clinical suspicion is so low not certain that a delta troponin is really indicated. We will discuss this with the patient and proceed however he feels comfortable after we have initial labs back. Progress Note #2: Time: 00:09 Progress Note His nausea is gone and his anxiety is marginally improved. We talked about following up with the primary care doctor and discussing whether another medication in addition to the Klonopin would be reasonable. We also will give him referral to Dr. Velazquez, General Surgery for considering an EGD considering his long-standing GERD that has been getting worse the last couple weeks. His repeat heart rate was around 100 - 105 which is improved from when he first got here. Initial ECG Impression Date: Mar 21, 2018 Initial ECG Impression Time: 23:12 Initial ECG Rate: 113 Initial ECG Rhythm: Normal Sinus Initial ECG Intervals: Normal Initial ECG Impression: Normal, Nonspecific Changes Initial ECG Comparisson: Unchanged Comment No ST elevation or depression. Sinus tachycardia Diagnostic Imaging Diagonstic Imaging: Xray Plain Films/CT/US/NM/MRI: chest (1v) Comments No acute cardiopulmonary processes noted Reviewed: Reviewed by Me Departure Impression Primary Impression: Anxiety attack Additional Impression: GERD (gastroesophageal reflux disease) Qualified Codes: K21.9 - Gastro-esophageal reflux disease without esophagitis Disposition: 01 HOME, SELF-CARE Condition: Stable Departure-Patient Inst. Decision time for Depature: 00:10 Referrals: LEA VELAZQUEZ MD NO,LOCAL PHYSICIAN (PCP) Primary Care Physician Patient Instructions: Acid Reflux (Gastroesophageal Reflux Disease), Adult (DC) , Anxiety, Adult (DC) Add. Discharge Instructions: You can use the Pepcid as well as the Prilosec. We'll send a prescription for some Carafate for the next 2 weeks and then please call Dr. Velazquez office in the morning and request appointment for workup of your GERD. Follow-up with your primary care doctor discuss her symptoms of anxiety and see if there is another medication in addition to your Klonopin that might be reasonable. Scripts Sucralfate (Carafate) 1 Gm Tablet 1 GM PO QIDACHS for 14 Days, #56 TAB Prov: AUBERY MONTALVO 03/22/18 Copy Copies To 1: LEA VELAZQUEZ MD, TITUS J Mar 21, 2018 23:24
[2018-03-21 23:26] LABS: BASOPHILS # (AUTO) 0.1 10^3/uL (0.0-0.1); BASOPHILS % (AUTO) 1 % (0-10); EOSINOPHILS # (AUTO) 0.3 10^3/uL (0.0-0.3); EOSINOPHILS % (AUTO) 3 % (0-10); HEMATOCRIT 42 % (40-54); HEMOGLOBIN 15.1 G/DL (13.3-17.7); LYMPHOCYTES # (AUTO) 3.4 X 10^3 (1.0-4.0); LYMPHOCYTES % (AUTO) 42 % (12-44); MEAN CORPUSCULAR HEMOGLOBIN 30 PG (25-34); MEAN CORPUSCULAR HGB CONC 36 G/DL (32-36); MEAN CORPUSCULAR VOLUME 84 FL (80-99); MEAN PLATELET VOLUME 9.6 FL (7.4-10.4); MONOCYTES # (AUTO) 0.6 X 10^3 (0.0-1.0); MONOCYTES % (AUTO) 7 % (0-12); NEUTROPHILS # (AUTO) 3.9 X 10^3 (1.8-7.8); NEUTROPHILS % (AUTO) 47 % (42-75); PLATELET COUNT 255 10^3/uL (130-400); RED BLOOD COUNT 5.01 10^6/uL (4.35-5.85); WHITE BLOOD COUNT 8.2 10^3/uL (4.3-11.0)
[2018-03-21] MEDS ORDERED: PROMETHAZINE 25 MG (PHENERGAN) TAB PO ONE (23:30)
[2018-03-21] MEDS ORDERED: LIDOCAINE 2% VISCOUS 15 ML UDC PO ONE (23:30)
[2018-03-21] MEDS ORDERED: ANTACID SUSP 30 ML UDC (MYLANTA) PO ONE (23:30)
[2018-03-21] MEDS ORDERED: hydrOXYzine (VISTARIL) 25 MG CAP PO ONE (23:30)
[2018-03-21] MEDS ORDERED: ASPIRIN 81 MG CHEW (CHILDREN'S ASA) PO ONE (23:30)
[2018-03-21 23:34] LABS: INR 1.1 (0.8-1.4); PROTHROMBIN TIME PATIENT 14.5 SEC (12.2-14.7)
[2018-03-21 23:44] LABS: ALANINE AMINOTRANSFERASE 16 U/L (0-55); ALBUMIN 4.5 GM/DL (3.2-4.5); ALKALINE PHOSPHATASE 62 U/L (40-136); BILIRUBIN,TOTAL 0.5 MG/DL (0.1-1.0); BUN/CREATININE RATIO 11; CALCIUM 9.6 MG/DL (8.5-10.1); CARBON DIOXIDE 22 MMOL/L (21-32); CHLORIDE 104 MMOL/L (98-107); CREATININE SERUM 1.08 MG/DL (0.60-1.30); GFR ESTIMATED > 60; GLUCOSE 120 MG/DL (70-105); LIPASE 25 U/L (8-78); MAGNESIUM 2.3 MG/DL (1.8-2.4); POTASSIUM 3.9 MMOL/L (3.6-5.0); SODIUM 137 MMOL/L (135-145); TOTAL PROTEIN 7.3 GM/DL (6.4-8.2)
[2018-03-21 23:51] LABS: MYOGLOBIN SERUM 61.2 NG/ML (10.0-92.0)
[2018-03-22] MEDS ORDERED: SUCR1TAB36 PO (00:12)
[2018-03-22 00:18] VITALS: BP 138/90
--- NOTE | 2018-03-22 05:44 | Diagnostic Imaging Report ---
Patient History: Chest pain. Technique: Single frontal view of the chest Comparison: 04/13/2017 FINDINGS: The lung volumes are normal. No focal consolidation is seen. No large pleural effusion or pneumothorax is seen. The cardiomediastinal silhouette is normal in size and contour. No acute osseous abnormality is seen. IMPRESSION: No acute pulmonary abnormality seen. Dictated by: Dictated on workstation # [id number]
== END 2018-03-22 00:19 | disposition home or self-care (01) ==
LOC: EDUNIT# 23:07 → ER 23:09
DX: F41.0 Panic disorder [episodic paroxysmal anxiety] (principal); K21.9 Gastro-esophageal reflux disease without esophagitis; I10 Essential (primary) hypertension; F32.9 Major depressive disorder, single episode, unspecified; F12.10 Cannabis abuse, uncomplicated; Z87.891 Personal history of nicotine dependence; Z90.89 Acquired absence of other organs
CPT/HCPCS: 36415; 71045; 80053; 83690; 83735; 83874; 84484; 85025; 85610; 85730; 87430; 93005; 93041

== ENCOUNTER → 2018-04-12 | Outpatient (CLI) | payer MEDICAID ==
[~2018-04-12] MED LIST changes: +SUCR1TAB36 PO
== END | disposition home or self-care (01) ==
LOC: PREOP 05:35
PROVIDERS: ATTEND Surgery
DX: Z01.818 Encounter for other preprocedural examination (principal)

== ENCOUNTER 2018-09-15 13:56 | Emergency (ER) | payer MEDICAID, OTHER ==
[~2018-09-15] VITALS: Ht 182.9 cm; Wt 124.7 kg
[~2018-09-15 13:56] MED LIST changes: +CLON1TAB13 PO; -CLON1TAB4 PO
[2018-09-15] MEDS ORDERED: NS IV 1000 ML 1,000 ML IV ONE (14:25)
[2018-09-15 14:40] LABS: BASOPHILS % (AUTO) 1 % (0-10); EOSINOPHILS # (AUTO) 0.2 10^3/uL (0.0-0.3); EOSINOPHILS % (AUTO) 2 % (0-10); HEMATOCRIT 44 % (40-54); LYMPHOCYTES # (AUTO) 2.1 X 10^3 (1.0-4.0); LYMPHOCYTES % (AUTO) 33 % (12-44); MEAN CORPUSCULAR HEMOGLOBIN 30 PG (25-34); MEAN CORPUSCULAR HGB CONC 36 G/DL (32-36); MEAN CORPUSCULAR VOLUME 81 FL (80-99); MEAN PLATELET VOLUME 9.9 FL (7.4-10.4); MONOCYTES # (AUTO) 0.4 X 10^3 (0.0-1.0); MONOCYTES % (AUTO) 6 % (0-12); NEUTROPHILS # (AUTO) 3.7 X 10^3 (1.8-7.8); NEUTROPHILS % (AUTO) 58 % (42-75); PLATELET COUNT 256 10^3/uL (130-400); RED BLOOD COUNT 5.41 10^6/uL (4.35-5.85); WHITE BLOOD COUNT 6.5 10^3/uL (4.3-11.0)
--- NOTE | 2018-09-15 14:45 | NUR ---
HR DOWN TO 118
[2018-09-15 14:57] LABS: ALANINE AMINOTRANSFERASE 19 U/L (0-55); ALBUMIN 4.5 GM/DL (3.2-4.5); ALKALINE PHOSPHATASE 77 U/L (40-136); BILIRUBIN,TOTAL 0.7 MG/DL (0.1-1.0); BUN/CREATININE RATIO 11; CALCIUM 9.6 MG/DL (8.5-10.1); CARBON DIOXIDE 24 MMOL/L (21-32); CHLORIDE 104 MMOL/L (98-107); CREATININE SERUM 1.21 MG/DL (0.60-1.30); GFR ESTIMATED > 60; GLUCOSE 147 MG/DL (70-105); MAGNESIUM 2.3 MG/DL (1.8-2.4); POTASSIUM 3.8 MMOL/L (3.6-5.0); SODIUM 138 MMOL/L (135-145); TOTAL PROTEIN 7.6 GM/DL (6.4-8.2)
--- NOTE | 2018-09-15 14:58 | ED General ---
General Chief Complaint: Abdominal/GI Problems Stated Complaint: LOWER ABD PAIN;NAUSEA Nursing Triage Note: PT PRESENTS TO ED WITH COMPLAINT OF ABDOMINAL PAIN FOR THE LAST 3 WEEKS. PT DENIES ANY ABD PAIN ATT. PT STATES THAT WHEN HE DOES HAVE THE PAIN IT IS IN HIS MIDDLE, LOWER ABDOMEN. PT WENT TO URGENT CARE FOR THIS PAIN 2 WEEKS AGO AND THE ONLY TESTED HIS URINE WHICH WAS NEGATIVE. PT QUITE SMOKING MARIJUANA 23 DAYS AGO AND STATES THIS IS AROUND THE TIME HIS PROBLEMS BEGAN. Nursing Sepsis Screen: No Definite Risk Source of Information: Patient Exam Limitations: No Limitations History of Present Illness Date Seen by Provider: Sep 15, 2018 Time Seen by Provider: 14:31 Initial Comments Here with report of anxiousness and abdominal pain. He is a 23 off of cannabis for problems related to the abdomen. He was using cannabis to help offset his anxiety. Denies anxiety is quite aggravated. He arrives with a heart rate of 160 but states he feels like he just worked himself up. He has not been feeling well over the past couple of days and did not have any bowel movements but did have 2 large bowel movements today. Previously was having some lower abdominal pain but that is currently resolved. Denies dysuria. He does not have his gallbladder. States that he feels like he is dehydrated. Timing/Duration: Changing Over Time, Other (3 weeks) Severity: Moderate Associated Systoms: No Chest Pain, No Cough, No Fever/Chills; Loss of Appetite ; No Nausea/Vomiting, No Shortness of Air, No Weakness Allergies and Home Medications Allergies Coded Allergies: NKANo Known Allergies (Verified Allergy, Unknown, 10/21/06) Home Medications Clonazepam 1 Mg Tablet, 1 MG PO TID, (Reported) Sucralfate 1 Gm Tablet, 1 GM PO QIDACHS Prescribed by: AUBREY MONTALVO on 03/22/18 0012 Patient Home Medication List Home Medication List Reviewed: Yes Review of Systems Review of Systems Constitutional: see HPI; No chills, No fever EENTM: no symptoms reported Respiratory: no symptoms reported Cardiovascular: no symptoms reported Gastrointestinal: see HPI, abdominal pain, nausea Genitourinary: No dysuria, No hematuria Musculoskeletal: no symptoms reported Skin: no symptoms reported Psychiatric/Neurological: See HPI, Anxiety; Denies Emotional Problems Hematologic/Lymphatic: No Symptoms Reported All Other Systems Reviewed Negative Unless Noted: Yes Past Dpvramx-Zzqrvs-Xjfzhw Hx Past Med/Social Hx: Reviewed Nursing Past Med/Soc Hx Patient Social History Alcohol Use: Denies Use Recreational Drug Use: Yes Drug of Choice: POT Type Used: Cigarettes, Electronic/Vapor 2nd Hand Smoke Exposure: No Recent Foreign Travel: No Contact w/Someone Who Travel: No Recent Infectious Disease Expo: No Recent Hopitalizations: No Immunizations Up To Date Tetanus Booster (TDap): Unknown Seasonal Allergies Seasonal Allergies: Yes Past Medical History Surgeries: Yes (X1 WISDOM TOOTH REMOVED,CUT FINGER REPAIRED) Appendectomy, Gallbladder Respiratory: No Cardiac: Yes Hypertension Neurological: No Reproductive Disorders: No Genitourinary: No Gastrointestinal: No Musculoskeletal: Yes Chronic Back Pain Endocrine: No HEENT: No Cancer: No Psychosocial: Yes Anxiety, Depression Integumentary: No Blood Disorders: No Family Medical History Reviewed Nursing Family Hx Physical Exam Vital Signs Vital Signs - First Documented 09/15/18 14:02 Temp 97.4 Pulse 135 Resp 16 B/P (MAP) 131/100 (110) Pulse Ox 99 Capillary Refill : Less Than 3 Seconds Height, Weight, BMI Height: 6'0" Weight: 275lbs. oz. 124.973821wh; 40.68 BMI Method:Stated General Appearance: WD/WN, Anxious HEENT: PERRL/EOMI, Pharynx Normal Neck: Non Tender Respiratory: Lungs Clear, Normal Breath Sounds Cardiovascular: No Murmur, Tachycardia Gastrointestinal: Non Tender, Soft Back: Normal Inspection, No CVA Tenderness, No Vertebral Tenderness Extremity: Normal Range of Motion, Non Tender Neurologic/Psychiatric: Alert, Oriented x3 Skin: Normal Color, Warm/Dry Progress/Results/Core Measures Suspected Sepsis Recent Fever Within 48 Hours: No Infection Criteria Present: None New/Unexplained Altered Menta: No Sepsis Screen: No Definite Risk SIRS Temperature:97.4 Pulse: 135 Respiratory Rate: 16 Laboratory Tests 09/15/18 14:30: White Blood Count 6.5 Blood Pressure 131 /100 Mean: 110 Laboratory Tests 09/15/18 14:30: Creatinine 1.21, Platelet Count 256, Total Bilirubin 0.7 Results/Orders Lab Results Laboratory Tests Test 09/15/18 14:30 09/15/18 15:10 Range/Units White Blood Count 6.5 4.3-11.0 10^3/uL Red Blood Count 5.41 4.35-5.85 10^6/uL Hemoglobin 16.0 13.3-17.7 G/DL Hematocrit 44 40-54 % Mean Corpuscular Volume 81 80-99 FL Mean Corpuscular Hemoglobin 30 25-34 PG Mean Corpuscular Hemoglobin Concent 36 32-36 G/DL Red Cell Distribution Width 13.0 10.0-14.5 % Platelet Count 256 130-400 10^3/uL Mean Platelet Volume 9.9 7.4-10.4 FL Neutrophils (%) (Auto) 58 42-75 % Lymphocytes (%) (Auto) 33 12-44 % Monocytes (%) (Auto) 6 0-12 % Eosinophils (%) (Auto) 2 0-10 % Basophils (%) (Auto) 1 0-10 % Neutrophils # (Auto) 3.7 1.8-7.8 X 10^3 Lymphocytes # (Auto) 2.1 1.0-4.0 X 10^3 Monocytes # (Auto) 0.4 0.0-1.0 X 10^3 Eosinophils # (Auto) 0.2 0.0-0.3 10^3/uL Basophils # (Auto) 0.0 0.0-0.1 10^3/uL D-Dimer <= 0.27 0.00-0.49 UG/ML Sodium Level 138 135-145 MMOL/L Potassium Level 3.8 3.6-5.0 MMOL/L Chloride Level 104 98-107 MMOL/L Carbon Dioxide Level 24 21-32 MMOL/L Anion Gap 10 5-14 MMOL/L Blood Urea Nitrogen 13 7-18 MG/DL Creatinine 1.21 0.60-1.30 MG/DL Estimat Glomerular Filtration Rate > 60 BUN/Creatinine Ratio 11 Glucose Level 147 H 70-105 MG/DL Calcium Level 9.6 8.5-10.1 MG/DL Corrected Calcium 9.2 8.5-10.1 MG/DL Magnesium Level 2.3 1.8-2.4 MG/DL Total Bilirubin 0.7 0.1-1.0 MG/DL Aspartate Amino Transf (AST/SGOT) 21 5-34 U/L Alanine Aminotransferase (ALT/SGPT) 19 0-55 U/L Alkaline Phosphatase 77 40-136 U/L Troponin I < 0.028 <0.028 NG/ML Total Protein 7.6 6.4-8.2 GM/DL Albumin 4.5 3.2-4.5 GM/DL Thyroid Stimulating Hormone (TSH) 0.55 0.35-4.94 UIU/ML Urine Color YELLOW Urine Clarity CLEAR Urine pH 6 5-9 Urine Specific [place] 1.010 L 1.016-1.022 Urine Protein NEGATIVE NEGATIVE Urine Glucose (UA) NEGATIVE NEGATIVE Urine Ketones NEGATIVE NEGATIVE Urine Nitrite NEGATIVE NEGATIVE Urine Bilirubin NEGATIVE NEGATIVE Urine Urobilinogen NORMAL NORMAL MG/DL Urine Leukocyte Esterase NEGATIVE NEGATIVE Urine RBC (Auto) NEGATIVE NEGATIVE Urine RBC RARE /HPF Urine WBC RARE /HPF Urine Crystals NONE /LPF Urine Bacteria NEGATIVE /HPF Urine Casts NONE /LPF Urine Mucus NEGATIVE /LPF Urine Culture Indicated NO My Orders Orders - SANDRA WOOD MD Cbc With Automated Diff (09/15/18 14:25) Comprehensive Metabolic Panel (09/15/18 14:25) Fibrin Degradation Products (09/15/18 14:25) Magnesium (09/15/18 14:25) Troponin I (09/15/18 14:25) Chest 1 View, Ap/Pa Only (09/15/18 14:25) Saline Lock/Iv-Start (09/15/18 14:25) Ns Iv 1000 Ml (Sodium Chloride 0.9%) (09/15/18 14:25) Ekg Tracing (09/15/18 14:25) Monitor-Rhythm Ecg Trace Only (09/15/18 14:25) Thyroid Stimulating Hormone (09/15/18 14:45) Ua Culture If Indicated (09/15/18 14:45) Medications Given in ED Current Medications Medications Dose Ordered Sig/Tamra Route Start Time Stop Time Status Last Admin Dose Admin Sodium Chloride 1,000 ml @ 0 mls/hr Q0M ONCE IV 09/15/18 14:25 09/15/18 14:29 DC 09/15/18 14:41 1,000 MLS/HR Vital Signs/I&O 09/15/18 14:02 Temp 97.4 Pulse 135 Resp 16 B/P (MAP) 131/100 (110) Pulse Ox 99 Capillary Refill : Less Than 3 Seconds Blood Pressure Mean: 110 Progress Note : Progress Note Seen and evaluated. IV, labs, EKG and chest x-ray ordered. Normal saline 1 L bolus. Monitor patient. 1624: Labs do not show any significant findings. Thyroid is negative. Heart rate improved to the 90s. I did discuss with him about follow-up with his doctor. He has appointment tomorrow. He'll discuss with his doctor regarding anxiety and other opportunities for medications. He is going to stop his Bentyl as this seems to be increasing his problems. Discharged home with return precautions. Patient verbalize understanding and structures and agreement with plan. ECG Initial ECG Impression Date: Sep 15, 2018 Initial ECG Impression Time: 14:20 Initial ECG Rate: 163 Initial ECG Rhythm: S.Tach Initial ECG Comparisson: Changed Comment Previous EKG on 03/20/18 shows sinus tachycardia but not at this rate. Currently sinus tachycardia at rate 163 with normal axis. No evidence of ST elevation CT. Interpreted by me. Diagnostic Imaging Diagonstic Imaging: Xray Plain Films/CT/US/NM/MRI: chest Comments NAME: ZACHERY PEARSON MED REC#: [id number] PT STATUS: REG ER : 1980 PHYSICIAN: SANDRA WOOD MD ADMIT DATE: 09/15/18/ER Signed Date of Exam: 09/15/18 CHEST 1 VIEW, AP/PA ONLY CHEST 1 VIEW, AP/PA ONLY Indication: Nausea and lightheadedness. Comparison: 03/21/2018 Findings: No focal airspace disease in the visualized lungs. Please note that the posterior lower lobes are poorly evaluated by portable radiography. No pleural effusion or pneumothorax. Normal cardiomediastinal silhouette. Impression: No acute cardiopulmonary process by portable radiography. Dictated by: Dictated on workstation # [id number] Dict: 09/15/18 1514 Trans: 09/15/18 1515 Interpreted by: BOOKER BOYCE MD Electronically signed by: BOOKER BOYCE MD 09/15/18 1515 Departure Impression Primary Impression: Sinus tachycardia Additional Impression: Anxiety about health Disposition: HOME, SELF-CARE Condition: Improved Departure-Patient Inst. Decision time for Depature: 16:31 Referrals: NO,LOCAL PHYSICIAN (PCP/Family) Primary Care Physician Patient Instructions: Anxiety, Adult (DC), Sinus Tachycardia (DC) Add. Discharge Instructions: All discharge instructions reviewed with patient and/or family. Voiced understanding. Follow-up with her doctor tomorrow as previously scheduled. You normal diet and drink plenty of fluids. You can consider stopping the Bentyl as this seems to be making her problems worse. Discussed this with your doctor as well. Return for worse pain, fever, vomiting, weakness, breathing problems or other concerns as needed. SANDRA WOOD MD Sep 15, 2018 14:58
--- NOTE | 2018-09-15 15:17 | Diagnostic Imaging Report ---
CHEST 1 VIEW, AP/PA ONLY Indication: Nausea and lightheadedness. Comparison: 03/21/2018 Findings: No focal airspace disease in the visualized lungs. Please note that the posterior lower lobes are poorly evaluated by portable radiography. No pleural effusion or pneumothorax. Normal cardiomediastinal silhouette. Impression: No acute cardiopulmonary process by portable radiography. Dictated by: Dictated on workstation # [id number]
[2018-09-15 15:19] LABS: BILIRUBIN,URINE NEGATIVE (NEGATIVE); CLARITY,URINE CLEAR; COLOR,URINE YELLOW; GLUCOSE, URINE (UA) NEGATIVE (NEGATIVE); KETONES,URINE NEGATIVE (NEGATIVE); LEUKOCYTE ESTERASE ,URINE NEGATIVE (NEGATIVE); NITRITE,URINE NEGATIVE (NEGATIVE); PH,URINE 6 (5-9); PROTEIN,URINE NEGATIVE (NEGATIVE); UROBILINOGEN,URINE NORMAL (NORMAL)
[2018-09-15 15:27] LABS: BACTERIA,URINE NEGATIVE /HPF; RBC,URINE RARE /HPF; WBC,URINE RARE /HPF
[2018-09-15 16:37] VITALS: BP 122/72
--- OUTSIDE RECORDS SUMMARY | 2018-09-15 17:30 | XMS REPORT ---
Author Author COLIN PACHECO [facility] eClinicalWorks Address Unknown Phone Unavailable Care Team Providers Care Logistics Solution Manager Name Role Phone COLIN PACHECO CP Unavailable Allergies No Known Allergies Problems Problem Type Condition Code Onset Dates Condition Status Problem Anxiety disorder, unspecified F41.9 Active Assessment Paranoid state, drug-induced F19.950 Active Problem Bipolar disorder, current episode manic severe with psychotic features F31.2 Active Assessment Major depression, recurrent F33.9 Active Assessment Generalized anxiety disorder F41.1 Active Medications No Known Medications Procedures Procedure Coding System Code Date Psychotherapy, patient &/family, 30 minutes, established patient CPT-4 69393 Aug 16, 2015 Results No Known Results Summary Purpose eClinicalWorks Submission
--- OUTSIDE RECORDS SUMMARY | 2018-09-15 17:31 | XMS REPORT ---
Author Author YIN LETITIA Organization [facility] Address [address] [place] [address] Care Team Providers Care Fish Bailer Name Role Phone LETITIA ESQUEDA Unavailable PROBLEMS Type Condition ICD9-CM Code OUD20-JG Code Onset Dates Condition Status SNOMED Code Problem Bipolar disorder, current episode manic severe with psychotic features F31.2 Active 056970626 Problem Anxiety disorder, unspecified F41.9 Active 738494662 Problem Gastroesophageal reflux disease with esophagitis K21.0 Active 017947708 Problem Anxiety F41.9 Active 82108577 Problem Essential hypertension I10 Active 63895036 Problem Mixed dyslipidemia E78.2 Active 150239631 Problem Bipolar 1 disorder with moderate bassam F31.12 Active 267117588 Problem Gastritis K29.70 Active 8736248 ALLERGIES Substance Reaction Event Type Date Status Latex rash Drug Allergy Apr, Active ENCOUNTERS Encounter Location Date Diagnosis [facility] [address] [phone] Jul, Sore throat J02.9 ; Right ear impacted cerumen H61.21 ; Other viral agents as the cause of diseases classified elsewhere B97.89 and Acute upper respiratory infection, unspecified J06.9 [facility] [id number] [place] [phone] Apr, Encounter for dental examination Z01.20 [facility] [address] [id number] Feb, Dental examination Z01.20 [facility] [address] [phone] Feb, Acute non-recurrent maxillary sinusitis J01.00 [facility] [address] [address] Aug, Cough R05 ; Other viral agents as the cause of diseases classified elsewhere B97.89 ; Acute upper respiratory infection, unspecified J06.9 and Acute effusion of right ear H65.191 [facility] [id number] [place] [phone] May, Dental examination Z01.20 [facility] [id number] [place] [phone] May, Dental examination Z01.20 [facility] [address] [id number] Apr, Dental examination Z01.20 [facility] [address] [address] Apr, Acute non-recurrent maxillary sinusitis J01.00 and Gastroesophageal reflux disease with esophagitis K21.0 [facility] [address] [phone] Mar, Dental examination Z01.20 [facility] [id number] [place] [phone] Feb, Dental examination Z01.20 [facility] [address] [address] Feb, Encounter to establish care Z76.89 ; Essential hypertension I10 ; Gastritis K29.70 ; Anxiety disorder, unspecified F41.9 and Coccydynia M53.3 [facility] [id number] [place] [phone] Jan, [facility] [address] [phone] Jan, [facility] [address] [address] Jan, Dental examination Z01.20 [facility] [id number] [place] [phone] Sep, [facility] [address] [phone] Sep, [facility] [address] [place] [phone] Aug, [facility] [address] [place] [phone] Aug, Depression F32.9 [facility] [id number] [place] [phone] Aug, Anxiety disorder, unspecified F41.9 ; Bipolar disorder, current episode manic severe with psychotic features F31.2 and Depressed F32.9 [facility] [id number] [place] [phone] Aug, [place] [id number] [place] [phone] Aug, Bipolar disorder, current episode manic severe with psychotic features F31.2 ; Anxiety disorder, unspecified F41.9 ; Anxiety F41.9 ; Bipolar 1 disorder with moderate bassam F31.12 and Substance addiction F19.20 [facility] [address] [place] [address] Aug, Bipolar 1 disorder with moderate bassam F31.12 ; 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 and Paranoid state, drug-induced F19.950 [facility] [address] [place] [address] Aug, Essential hypertension I10 ; Encounter for immunization Z23 ; Mixed dyslipidemia E78.2 and Gastritis K29.70 [facility] [address] [place] [address] Aug, Major depression F32.9 ; Substance addiction F19.20 and Generalized anxiety disorder F41.1 [facility] [address] [place] [address] Jul, Paranoid state, drug-induced F19.950 ; Major depression, recurrent F33.9 and Generalized anxiety disorder F41.1 [facility] [id number] [place] [address] Jul, Essential hypertension I10 [facility] [id number] [place] [address] Jul, Hypertension I10 [facility] [id number] [place] [address] Jul, Anxiety disorder, unspecified F41.9 ; 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 ; Generalized anxiety disorder F41.1 ; Acute stress reaction F43.0 ; Major depressive disorder, single episode with psychotic features with anxious distress F32.3 and Bipolar I disorder, mild, current or most recent episode depressed, with psychotic features, with anxious distress F31.31 [facility] [id number] [place] [phone] Jul, Depression, major, recurrent, severe with psychosis F33.3 and Paranoid F22 [facility] [id number] [place] [address] Jul, Essential hypertension I10 ; Anxiety F41.9 and Bipolar 1 disorder with moderate bassam F31.12 [facility] [id number] [place] [address] Jul, Bipolar disorder, current episode manic severe with psychotic features F31.2 and Anxiety disorder, unspecified F41.9 [facility] [id number] [place] [phone] Nov, [facility] [id number] [place] [phone] May, [facility] [id number] [place] [phone] May, [facility] [id number] [place] [phone] May, [facility] [id number] [place] [phone] Jun, [facility] [address] [facility] [id number] [place] [address] Jun, [facility] [address] [facility] [id number] [place] [address] Mar, IMMUNIZATIONS No Known Immunizations SOCIAL HISTORY Never Assessed REASON FOR VISIT prophy PLAN OF CARE Activity Details Follow Up First Available Reason:Restorative #19/4 VITAL SIGNS Heart Rate 88 bpm 2017-05-08 Blood pressure systolic 120 mmHg 2017-05-08 Blood pressure diastolic 81 mmHg 2017-05-08 MEDICATIONS Medication Instructions Dosage Frequency Start Date End Date Duration Status Zantac 150 Maximum Strength 150 MG Orally Twice a day 1 tablet 12h 08 Aug, 2015 Active Klonopin 1 MG Orally 3 times a day 1 tablet 8h Active Lisinopril 20 mg Orally Once a day 1 tablet 24h Jul, Active RESULTS No Results PROCEDURES Procedure Date Ordered Result Body Site COMP ORAL EVALUATION - NEW/EST PT May 08, 2017 INTRAORL-PERIAPICAL 1 FILM 79163 May 08, 2017 TOPICAL FLUORIDE VARNISH May 08, 2017 PROPHYLAXIS - ADULT May 08, 2017 INTRAORL-PERIAPICAL EA ADD FILM May 08, 2017 INTRAORL-PERIAPICAL EA ADD FILM May 08, 2017 PANORAMIC FILM SEE ALSO CODE 01901 May 08, 2017 BITEWINGS - FOUR FILMS May 08, 2017 INSTRUCTIONS MEDICATIONS ADMINISTERED No Known Medications MEDICAL (GENERAL) HISTORY Type Description Date Medical History Bipolar disorder, current episode manic severe with psychotic features Medical History Anxiety disorder, unspecified Medical History Essential (primary) hypertension Medical History Hyperlipidemia Surgical History appendectomy Surgical History gall bladder removal Surgical History vasectomy Hospitalization History Surgery Hospitalization History Gastritis
--- OUTSIDE RECORDS SUMMARY | 2018-09-15 17:31 | XMS REPORT ---
Author Author PAIGE IRVIN eClinicalWorks Address Unknown Phone Unavailable Care Team Providers Care Tool Engine Lathe Set Up Operator Name Role Phone PAIGE IRVIN CP Unavailable Allergies, Adverse Reactions, Alerts Substance Reaction Event Type Latex Info Not Available Drug Allergy Problems Problem Type Condition Code Onset Dates Condition Status Assessment Essential hypertension I10 Active Assessment Anxiety F41.9 Active Problem Bipolar disorder, current episode manic severe with psychotic features F31.2 Active Assessment Bipolar 1 disorder with moderate bassam F31.12 Active Medications Medication Code System Code Instructions Start Date End Date Status Dosage Fish Oil [facility] [address]-70 1000 MG Orally 4 times a day 1 capsule Loxapine Succinate [facility] [address]-97 10 MG Orally Twice a day Aug 09, 2015 1 capsule Prilosec [facility] [address]-72 20 MG Orally Once a day 2 capsules Klonopin [facility] [address]-09 0.5 MG Orally 3 times a day 1 tablet Lisinopril [facility] [address]-69 40 MG Orally Once a day Aug 09, 2015 1 tablet Procedures Procedure Coding System Code Date DRUG SCREEN NON TLC DEVICES CPT-4 69092 Aug 09, 2015 Office Visit, New Pt., Level 4 CPT-4 88806 Aug 09, 2015 Vital Signs Date/Time: Aug 09, 2015 Temperature 98.6 F Weight 301.0 lbs Height 70.0 in BMI 43.18 Index Blood Pressure Diastolic 110; 138 mmHg Blood Pressure Systolic 150 mmHg Cardiac Monitoring Heart Rate 96 bpm Results Name Result Date Reference Range Unit Abnormality Flag URINE DRUG SCREEN (IN HOUSE) ----MDMA neg [id number] ----TCA neg [id number] ----BENZO POSITIVE [id number] ----OPIATE neg [id number] ----THC POSITIVE [id number] ----MTD neg [id number] ----AMPH neg [id number] ----BAR neg [id number] ----PCP neg [id number] ----MAMP neg [id number] ----OXY neg [id number] ----Lot # [id number] ----Exp date [id number] ----Control + [id number] ----COCAINE neg [id number] Summary Purpose eClinicalWorks Submission
--- OUTSIDE RECORDS SUMMARY | 2018-09-15 17:31 | XMS REPORT ---
Author Author COLIN PACHECO [facility] eClinicalWorks Address Unknown Phone Unavailable Care Team Providers Care Film Projector Operator Name Role Phone COLIN PACHECO CP Unavailable Allergies, Adverse Reactions, Alerts Substance Reaction Event Type Latex Info Not Available Drug Allergy Problems Problem Type Condition Code Onset Dates Condition Status Problem Anxiety disorder, unspecified F41.9 Active Assessment Depression, major, recurrent, severe with psychosis F33.3 Active Problem Bipolar disorder, current episode manic severe with psychotic features F31.2 Active Assessment Paranoid F22 Active Medications No Known Medications Procedures Procedure Coding System Code Date Psych diagnostic evaluation, established patient CPT-4 82667 Aug 09, 2015 Results No Known Results Summary Purpose eClinicalWorks Submission
--- OUTSIDE RECORDS SUMMARY | 2018-09-15 17:31 | XMS REPORT ---
Author Author COLIN PACHECO eClinicalWorks Address Unknown Phone Unavailable Care Team Providers Care Back Hand Name Role Phone COLIN PACHECO CP Unavailable Allergies, Adverse Reactions, Alerts Substance Reaction Event Type Latex Info Not Available Drug Allergy Problems Problem Type Condition Code Onset Dates Condition Status Assessment Depressed F32.9 Active Assessment Anxiety disorder, unspecified F41.9 Active Assessment Bipolar disorder, current episode manic severe with psychotic features F31.2 Active Problem Anxiety F41.9 Active Problem Bipolar 1 disorder with moderate bassam F31.12 Active Problem Essential hypertension I10 Active Problem Bipolar disorder, current episode manic severe with psychotic features F31.2 Active Problem Anxiety disorder, unspecified F41.9 Active Problem Gastritis K29.70 Active Problem Mixed dyslipidemia E78.2 Active Medications No Known Medications Procedures Procedure Coding System Code Date Psychotherapy, patient &/family, 30 minutes, established patient CPT-4 30240 Sep 12, 2015 Results No Known Results Summary Purpose eClinicalWorks Submission
--- OUTSIDE RECORDS SUMMARY | 2018-09-15 17:31 | XMS REPORT ---
Author COLIN Null eClinicalWorks Address Unknown Phone Unavailable Care Team Providers Care Senior Piping Designer Name Role Phone COLIN JIANG CP Unavailable Allergies, Adverse Reactions, Alerts Substance Reaction Event Type Latex rash Drug Allergy Problems Problem Type Condition Code Onset Dates Condition Status Problem Anxiety disorder, unspecified F41.9 Active Assessment Dental examination Z01.20 Active Problem Essential hypertension I10 Active Problem Anxiety F41.9 Active Problem Gastroesophageal reflux disease with esophagitis K21.0 Active Problem Mixed dyslipidemia E78.2 Active Problem Bipolar disorder, current episode manic severe with psychotic features F31.2 Active Problem Bipolar 1 disorder with moderate bassam F31.12 Active Problem Gastritis K29.70 Active Medications Medication Code System Code Instructions Start Date End Date Status Dosage Lisinopril [facility] [address]-97 20 mg Orally Once a day Aug 09, 2015 1 tablet Prilosec OTC [facility] 70080-[address]86 20 MG Orally Once a day 1 tablets Claritin [facility] [address]-39 10 MG Orally Once a day 1 tablet Klonopin [facility] [address]-50 1 MG Orally 3 times a day 1 tablet Augmentin [facility] [address]-77 875-125 MG Orally every 12 hrs May 12, 2016 May 22, 2016 1 tablet Keflex [facility] [address]-48 500 MG Orally Four times a day May 15, 2016 May 22, 2016 1 capsule Procedures Procedure Coding System Code Date INTRAORL-PERIAPICAL 1 FILM 93764 CPT-4 D0220 May 15, 2016 LTD ORAL EVALUATION - PROBLEM FOCUS CPT-4 D0140 May 15, 2016 Vital Signs Date/Time: May 15, 2016 Blood Pressure Diastolic 102 mmHg Blood Pressure Systolic 140 mmHg Height 70.0 in Results No Known Results Summary Purpose eClinicalWorks Submission
--- OUTSIDE RECORDS SUMMARY | 2018-09-15 17:31 | XMS REPORT ---
Author PAIGE La eClinicalWorks Address Unknown Phone Unavailable Care Team Providers Care Activated Sludge Operator Name Role Phone PAIGE IRVIN CP [...] Start Date End Date Status Dosage Cialis [facility] [address]-76 5 MG Orally every 24 hrs 1 tablet Klonopin [facility] [address]-26 1 mg Orally 3 times a day 1 tablet Lisinopril [facility] [address]-27 20 MG Orally Once a day Aug 09, 2015 1 tablet Zyprexa Zydis [facility] [address]-66 5 MG Orally once a day Aug 10, 2015 1 tablet on the tongue and allow to dissolve Zantac 150 Maximum Strength [facility] [address]-59 150 MG Orally Twice a day Aug 31, 2015 1 tablet Venlafaxine HCl ER [facility] [address]-44 37.5 MG Orally Once a day Sep 12, 2015 1 tablet with food Procedures Procedure Coding System Code Date Office Visit, Est Pt., Level 3 CPT-4 65801 Sep 12, 2015 Vital Signs Date/Time: Sep 12, 2015 Temperature 98 F Weight 296 lbs Height 70.0 in BMI 42.47 Index Blood Pressure Diastolic 84 mmHg Blood Pressure Systolic 118 mmHg Cardiac Monitoring Heart Rate 76 bpm Results No Known Results Summary Purpose eClinicalWorks Submission
--- OUTSIDE RECORDS SUMMARY | 2018-09-15 17:31 | XMS REPORT ---
Author Author GRISELDA VILLALOBOS Organization [facility] Address [address] [place] [address] Care Team Providers Care Schedule Planning Manager Name Role Phone GRISELDA VILLALOBOS Unavailable PROBLEMS Type Condition ICD9-CM Code FIJ29-NO Code Onset Dates Condition Status SNOMED Code Problem Bipolar disorder, current episode manic severe with psychotic features F31.2 Active 656497255 Problem Anxiety disorder, unspecified F41.9 Active 667819382 Problem Gastroesophageal reflux disease with esophagitis K21.0 Active 989351724 Problem Anxiety F41.9 Active 87227461 Problem Essential hypertension I10 Active 68297828 Problem Mixed dyslipidemia E78.2 Active 414446797 Problem Bipolar 1 disorder with moderate bassam F31.12 Active 012720538 Problem Gastritis K29.70 Active 4213357 ALLERGIES Substance Reaction Event Type Date Status Latex rash Drug Allergy Jul, Active ENCOUNTERS Encounter Location Date Diagnosis [facility] [address] [address] Jul, Sore throat J02.9 ; Right ear impacted cerumen H61.21 ; Other viral agents as the cause of diseases classified elsewhere B97.89 and Acute upper respiratory infection, unspecified J06.9 [facility] [id number] [place] [phone] Apr, Encounter for dental examination Z01.20 [facility] [address] [id number] Feb, Dental examination Z01.20 [facility] [id number] [place] [address] Feb, Acute non-recurrent maxillary sinusitis J01.00 [facility] [address] [address] Aug, Cough R05 ; Other viral agents as the cause of diseases classified elsewhere B97.89 ; Acute upper respiratory infection, unspecified J06.9 and Acute effusion of right ear H65.191 [facility] [id number] [place] [id number] May, Dental examination Z01.20 [facility] [address] [address] May, Dental examination Z01.20 [facility] [address] [id number] Apr, Dental examination Z01.20 [facility] [address] [address] Apr, Acute non-recurrent maxillary sinusitis J01.00 and Gastroesophageal reflux disease with esophagitis K21.0 [facility] [address] [phone] Mar, Dental examination Z01.20 [facility] [id number] [place] [id number] Feb, Dental examination Z01.20 [facility] [address] [address] Feb, Encounter to establish care Z76.89 ; Essential hypertension I10 ; Gastritis K29.70 ; Anxiety disorder, unspecified F41.9 and Coccydynia M53.3 [facility] [id number] [place] [address] Jan, [facility] [address] [address] Jan, [facility] [address] [address] Jan, Dental examination Z01.20 [facility] [id number] [place] [address] Sep, [facility] [address] [place] [address] Sep, 2015 [facility] [id number] [place] [phone] Aug, [facility] [address] [place] [address] Aug, Depression F32.9 [facility] [id number] [place] [phone] Aug, Anxiety disorder, unspecified F41.9 ; Bipolar disorder, current episode manic severe with psychotic features F31.2 and Depressed F32.9 [facility] [id number] [place] [address] Aug, [facility] [id number] [place] [phone] Aug, Bipolar disorder, current episode manic severe with psychotic features F31.2 ; Anxiety disorder, unspecified F41.9 ; Anxiety F41.9 ; Bipolar 1 disorder with moderate bassam F31.12 and Substance addiction F19.20 [facility] [id number] [place] [phone] Aug, Bipolar 1 disorder with moderate bassam F31.12 ; 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 and Paranoid state, drug-induced F19.950 [facility] [id number] [place] [address] Aug, Major depression F32.9 ; Substance addiction F19.20 and Generalized anxiety disorder F41.1 [facility] [id number] [place] [address] Aug, Essential hypertension I10 ; Encounter for immunization Z23 ; Mixed dyslipidemia E78.2 and Gastritis K29.70 [facility] [facility] [id number] [place] [address] Jul, Paranoid state, drug-induced F19.950 ; Major depression, recurrent F33.9 and Generalized anxiety disorder F41.1 [place] [address] [address] Jul, Essential hypertension I10 [facility] [id number] [place] [address] Jul, Hypertension I10 [facility] [address] [place] [phone] Jul, Anxiety disorder, unspecified F41.9 ; 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 ; Generalized anxiety disorder F41.1 ; Acute stress reaction F43.0 ; Major depressive disorder, single episode with psychotic features with anxious distress F32.3 and Bipolar I disorder, mild, current or most recent episode depressed, with psychotic features, with anxious distress F31.31 [facility] [address] [place] [phone] Jul, Depression, major, recurrent, severe with psychosis F33.3 and Paranoid F22 [facility] [id number] [place] [address] Jul, Essential hypertension I10 ; Anxiety F41.9 and Bipolar 1 disorder with moderate bassam F31.12 [facility] [id number] [place] [phone] Jul, Bipolar disorder, current episode manic severe with psychotic features F31.2 and Anxiety disorder, unspecified F41.9 [facility] [id number] [place] [address] Nov, [facility] [id number] [place] [address] May, [facility] [id number] [place] [phone] May, [facility] [id number] [place] [address] May, [facility] [id number] [place] [phone] Jun, [facility] [address] [facility] [id number] [place] [address] Jun, [facility] [address] [facility] [id number] [address] Mar, IMMUNIZATIONS No Known Immunizations SOCIAL HISTORY Never Assessed REASON FOR VISIT sore throat/rt ear pain/coughing PLAN OF CARE Activity Details Follow Up prn Reason: VITAL SIGNS Height 70.0 in 2017-07-30 Weight 277.4 lbs 2017-07-30 Temperature 98.2 degrees Fahrenheit 2017-07-30 Heart Rate 84 bpm 2017-07-30 Respiratory Rate 18 2017-07-30 BMI 39.80 kg/m2 2017-07-30 Blood pressure systolic 126 mmHg 2017-07-30 Blood pressure diastolic 84 mmHg 2017-07-30 MEDICATIONS Medication Instructions Dosage Frequency Start Date End Date Duration Status Flonase 50 MCG/ACT Nasally Once a day 1 spray in each nostril 24h Active Lisinopril 20 mg Orally Once a day 1 tablet 24h Jul, Active Zyrtec Allergy 10 MG Orally Once a day 1 tablet 24h Active Fish Oil 1000 MG Orally 4 times a day 1 capsule 6h Not-Taking Zantac 150 Maximum Strength 150 MG Orally Twice a day 1 tablet 12h Aug, Not-Taking Prilosec OTC 20 MG Orally Once a day 1 tablets 24h Not-Taking Klonopin 1 MG Orally 3 times a day 1 tablet 8h Active Claritin 10 MG Orally Once a day 1 tablet 24h Not-Taking Sudafed 30 MG Orally every 6 hrs 1 tablet as needed 6h Aug, 4 days Not-Taking RESULTS Name Result Date Reference Range STREP A (IN HOUSE) 2017-07-30 STREP A negative Control + Lot # [id number] Exp date 07/23/18 PROCEDURES Procedure Date Ordered Result Body Site EAR LAVAGE 2017-07-30 N/A STREP A ASSAY W/OPTIC Jul 30, 2017 INSTRUCTIONS MEDICATIONS ADMINISTERED No Known Medications MEDICAL (GENERAL) HISTORY Type Description Date Medical History Bipolar disorder, current episode manic severe with psychotic features Medical History Anxiety disorder, unspecified Medical History Essential (primary) hypertension Medical History Hyperlipidemia Surgical History appendectomy Surgical History gall bladder removal Surgical History vasectomy Hospitalization History Surgery Hospitalization History Gastritis
--- OUTSIDE RECORDS SUMMARY | 2018-09-15 17:31 | XMS REPORT ---
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 Active Problem Anxiety F41.9 Active Problem Bipolar 1 disorder with moderate bassam F31.12 Active Problem Essential hypertension I10 Active Problem Bipolar disorder, current episode manic severe with psychotic features F31.2 Active Problem Anxiety disorder, unspecified F41.9 Active Problem Gastritis K29.70 Active Problem Mixed dyslipidemia E78.2 Active Medications Medication Code System Code Instructions Start Date End Date Status Dosage Cialis [facility] [address]-32 5 MG Orally every 24 hrs 1 tablet Fish Oil [facility] [address]-58 1000 MG Orally 4 times a day 1 capsule Zantac 150 Maximum Strength [facility] [address]-55 150 MG Orally Twice a day Aug 31, 2015 1 tablet Klonopin [facility] [address]-29 1 mg Orally 3 times a day 1 tablet Zyprexa Zydis [facility] [address]-57 5 MG Orally once a day Aug 10, 2015 1 tablet on the tongue and allow to dissolve Lisinopril [facility] [address]-07 20 MG Orally Once a day Aug 09, 2015 1 tablet Procedures Procedure Coding System Code Date Office Visit, Est Pt., Level 4 CPT-4 58746 Aug 31, 2015 Vital Signs Date/Time: Aug 31, 2015 Temperature 98.8 F Weight 299.5 lbs Height 70.0 in BMI 42.97 Index Blood Pressure Diastolic 80 mmHg Blood Pressure Systolic 122 mmHg Cardiac Monitoring Heart Rate 88 bpm Results No Known Results Summary Purpose eClinicalWorks Submission
--- OUTSIDE RECORDS SUMMARY | 2018-09-15 17:31 | XMS REPORT ---
Author COLIN uNll eClinicalWorks Address Unknown Phone Unavailable Care Team Providers Care Clinical Biochemical Geneticist Name Role Phone COLIN JIANG CP Unavailable Allergies No Known Allergies Problems [...] F31.12 Active Problem Gastritis K29.70 Active Medications No Known Medications Procedures Procedure Coding System Code Date Dental no charge CPT-4 D0099 Jun 12, 2016 Results No Known Results Summary Purpose eClinicalWorks Submission
--- OUTSIDE RECORDS SUMMARY | 2018-09-15 17:31 | XMS REPORT ---
Author Author COLIN PACHECO [facility] eClinicalWorks Address Unknown Phone Unavailable Care Team Providers Care Quality Assurance/R&D Lab Technician Name Role Phone COLIN PACHECO CP Unavailable Allergies No Known Allergies Problems Problem Type Condition Code Onset Dates Condition Status Assessment Generalized anxiety disorder F41.1 Active Assessment Major depression F32.9 Active Assessment Substance addiction F19.20 Active Problem Anxiety F41.9 Active Problem Bipolar [...] patient &/family, 30 minutes, established patient CPT-4 50455 Aug 31, 2015 Results No Known Results Summary Purpose [employer] Submission
--- OUTSIDE RECORDS SUMMARY | 2018-09-15 17:31 | XMS REPORT ---
Author Author COLIN PACHECO eClinicalWorks Address Unknown Phone Unavailable Care Team Providers Care Spudder Name Role Phone COLIN PACHECO CP Unavailable Allergies, Adverse Reactions, Alerts Substance Reaction Event Type Latex Info Not Available Drug Allergy Problems Problem Type Condition Code Onset Dates Condition Status Assessment Bipolar I disorder, mild, current or most recent episode depressed , with psychotic features, with anxious distress F31.31 Active Problem Anxiety disorder, unspecified F41.9 Active Assessment Anxiety disorder, unspecified F41.9 Active Problem Bipolar disorder, current episode manic severe with psychotic features F31.2 Active Assessment Acute stress reaction F43.0 Active Assessment Major depressive disorder, single episode with psychotic features with anxious distress F32.3 Active Assessment 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
--- OUTSIDE RECORDS SUMMARY | 2018-09-15 17:32 | XMS REPORT ---
Author COLIN Null eClinicalWorks Address Unknown Phone Unavailable Care Team Providers Care Scrape Gatherer Name Role Phone COLIN JIANG CP Unavailable [...] Instructions Start Date End Date Status Dosage Claritin [facility] [address]-76 10 MG Orally Once a day 1 tablet Prilosec OTC [facility] [address]282 20 MG Orally Once a day 1 tablets Lisinopril [facility] [address]-71 20 mg Orally Once a day Aug 09, 2015 1 tablet Klonopin [facility] [address]-30 1 MG Orally 3 times a day 1 tablet Procedures Procedure Coding System Code Date Dental no charge CPT-4 D0099 May 26, 2016 Billing Notes on claim CPT-4 EC109 May 26, 2016 SURG REMOVAL ERUPTED TOOTH CPT-4 D7210 May 26, 2016 Vital Signs Date/Time: May 26, 2016 Blood Pressure Systolic 138 mmHg Cardiac Monitoring Heart Rate 96 bpm Height 70.0 in Blood Pressure Diastolic 91 mmHg Results No Known Results Summary Purpose eClinicalWorks Submission
--- OUTSIDE RECORDS SUMMARY | 2018-09-15 17:32 | XMS REPORT ---
Author Author CARMEN REN [facility] eClinicalWorks Address Unknown Phone Unavailable Care Team Providers Care Network Intelligence Analyst Name Role Phone CARMEN REN CP Unavailable Allergies, Adverse Reactions, Alerts Substance Reaction Event Type Latex rash Drug Allergy Problems Problem Type Condition Code Onset Dates Condition Status Assessment Gastritis K29.70 Active Assessment Encounter to establish care Z76.89 Active Assessment Essential hypertension I10 Active Assessment Coccydynia M53.3 Active Assessment Anxiety disorder, unspecified F41.9 Active Problem Anxiety F41.9 Active Problem Bipolar 1 disorder with moderate bassam F31.12 Active Problem Essential hypertension I10 Active Problem Bipolar disorder, current episode manic severe with psychotic features F31.2 Active Problem Anxiety disorder, unspecified F41.9 Active Problem Gastritis K29.70 Active Problem Mixed dyslipidemia E78.2 Active Medications Medication Code System Code Instructions Start Date End Date Status Dosage Lisinopril [facility] [address]-42 20 mg Orally Once a day Aug 09, 2015 1 tablet Zantac 150 Maximum Strength [facility] [address]-44 150 MG Orally Twice a day Aug 31, 2015 1 tablet Fish Oil [facility] [address]-70 1000 MG Orally 4 times a day 1 capsule Klonopin [facility] [address]-46 1 MG Orally 3 times a day 1 tablet Procedures Procedure Coding System Code Date Office Visit, Est Pt., Level 4 CPT-4 15284 March 20, 2016 Vital Signs Date/Time: March 20, 2016 Cardiac Monitoring Heart Rate 80 bpm Weight 294.7 lbs Height 70.0 in BMI 42.28 Index Results No Known Results Summary Purpose eClinicalWorks Submission
--- OUTSIDE RECORDS SUMMARY | 2018-09-15 17:32 | XMS REPORT ---
Author Author JALIL PIERRE [facility] eClinicalWorks Address Unknown Phone Unavailable Care Team Providers Care Route Driver Name Role Phone JALIL PIERRE Unavailable Allergies No Known Allergies Problems Problem Type Condition Code Onset Dates Condition Status Problem Anxiety F41.9 Active Problem Bipolar 1 disorder with moderate bassam F31.12 Active Problem Essential hypertension I10 Active Problem Bipolar disorder, current episode manic severe with psychotic features F31.2 Active Problem Anxiety disorder, unspecified F41.9 Active Problem Gastritis K29.70 Active Problem Mixed dyslipidemia E78.2 Active Medications No Known Medications Results No Known Results Summary Purpose eClinicalWorks Submission
--- OUTSIDE RECORDS SUMMARY | 2018-09-15 17:32 | XMS REPORT ---
Author Author GRISELDA VILLALOBOS Organization [facility] Address [address] [place] [address] Care Team Providers Care Route Delivery Manager Name Role Phone GRISELDA VILLALOBOS Unavailable PROBLEMS Type Condition ICD9-CM Code WSR90-XU Code Onset Dates Condition Status SNOMED Code Problem Anxiety disorder, unspecified F41.9 Active 659789066 Problem Gastritis K29.70 Active 3201846 Problem Bipolar disorder, current episode manic severe with psychotic features F31.2 Active 216825291 Problem Encounter for dental examination Z01.20 Active 768123441 Problem Gastroesophageal reflux disease with esophagitis K21.0 Active 396505405 Problem Anxiety F41.9 Active 92384181 Problem Bipolar 1 disorder with moderate bassam F31.12 Active 947083879 Problem Essential hypertension I10 Active 81804904 Problem Mixed dyslipidemia E78.2 Active 395808853 ALLERGIES Substance Reaction Event Type Date Status Latex rash Drug Allergy Aug, Active SOCIAL HISTORY No smoking Hx information available PLAN OF CARE Activity Details Follow Up prn Reason: VITAL SIGNS Height 70.0 in 2016-09-21 Weight 293.4 lbs 2016-09-21 Temperature 97.7 degrees Fahrenheit 2016-09-21 Heart Rate 84 bpm 2016-09-21 Respiratory Rate 18 2016-09-21 BMI 42.09 kg/m2 2016-09-21 Blood pressure systolic 130 mmHg 2016-09-21 Blood pressure diastolic 96 mmHg 2016-09-21 MEDICATIONS Medication Instructions Dosage Frequency Start Date End Date Duration Status Claritin 10 MG Orally Once a day 1 tablet 24h Active Sudafed 30 MG Orally every 6 hrs 1 tablet as needed 6h Aug, 4 days Active Lisinopril 20 mg Orally Once a day 1 tablet 24h Jul, Active Benzonatate 100 MG Orally Three times a day as needed 1 capsule as needed Aug, Sep, 5 days Active Prilosec OTC 20 MG Orally Once a day 1 tablets 24h Active Klonopin 1 MG Orally 3 times a day 1 tablet 8h Active RESULTS Name Result Date Reference Range STREP A (IN HOUSE) 2016-09-21 STREP A Negative Control + Lot # [id number] Exp date 03/25/18 PROCEDURES Procedure Date Ordered Related Diagnosis Body Site STREP A ASSAY W/OPTIC Sep 21, 2016 Office Visit, Est Pt., Level 3 Sep 21, 2016 IMMUNIZATIONS No Known Immunizations
--- OUTSIDE RECORDS SUMMARY | 2018-09-15 17:32 | XMS REPORT ---
Author Author MAREK TAMRA Organization [facility] Address [address] [place] [address] Care Team Providers Care Meat Grading Machine Operator Name Role Phone TAMRA JARA Unavailable PROBLEMS Type Condition ICD9-CM Code CWO21-TL Code Onset Dates Condition Status SNOMED Code Assessment Acute non-recurrent maxillary sinusitis J01.00 Apr, Active 77726878 Problem Bipolar disorder, current episode manic severe with psychotic features F31.2 Active 097546347 Problem Anxiety disorder, unspecified F41.9 Active 558819853 Problem Gastroesophageal reflux disease with esophagitis K21.0 Active 099181093 Problem Essential hypertension I10 Active 53612767 Problem Gastritis K29.70 Active 5309504 Problem Mixed dyslipidemia E78.2 Active 508228052 Problem Anxiety F41.9 Active 35966685 Problem Bipolar 1 disorder with moderate bassam F31.12 Active 279907749 ALLERGIES Substance Reaction Event Type Date Status Latex rash Drug Allergy Apr, Active SOCIAL HISTORY No smoking Hx information available PLAN OF CARE VITAL SIGNS Height 70.0 in 2016-05-12 Weight 295.6 lbs 2016-05-12 Heart Rate 78 bpm 2016-05-12 Respiratory Rate 18 2016-05-12 BMI 42.41 kg/m2 2016-05-12 Blood pressure systolic 121 mmHg 2016-05-12 Blood pressure diastolic 87 mmHg 2016-05-12 MEDICATIONS Medication Instructions Dosage Frequency Start Date End Date Duration Status Claritin 10 MG Orally Once a day 1 tablet 24h Active Klonopin 1 MG Orally 3 times a day 1 tablet 8h Active Lisinopril 20 mg Orally Once a day 1 tablet 24h Jul, Active Prilosec OTC 20 MG Orally Once a day 1 tablets 24h Active Augmentin 875-125 MG Orally every 12 hrs 1 tablet 12h Apr,Apr 10 day(s) Active RESULTS No Results PROCEDURES Procedure Date Ordered Related Diagnosis Body Site Office Visit, Est Pt., Level 3 May 12, 2016 IMMUNIZATIONS No Known Immunizations
--- OUTSIDE RECORDS SUMMARY | 2018-09-15 17:32 | XMS REPORT ---
Author Author COLIN PACHECO e[employer] Address Unknown Phone Unavailable Care Team Providers Care Edge Trimmer Name Role Phone COLIN PACHECO CP Unavailable Allergies No Known Allergies Problems Problem Type Condition Code Onset Dates Condition Status Assessment Anxiety F41.9 Active Assessment Bipolar disorder, current episode manic severe with psychotic features F31.2 Active Assessment Anxiety disorder, unspecified F41.9 Active Assessment Substance addiction F19.20 Active Assessment Bipolar 1 disorder with moderate bassam F31.12 Active Problem Anxiety F41.9 Active Problem Bipolar [...] patient &/family, 30 minutes, established patient CPT-4 89821 Sep 05, 2015 Results No Known Results Summary Purpose eClinicalWorks Submission
--- OUTSIDE RECORDS SUMMARY | 2018-09-15 17:32 | XMS REPORT ---
Author PAIGE La [employer] Address Unknown Phone Unavailable Care Team Providers Care Liquid Sugar Melter Name Role Phone PAIGE IRVIN CP Unavailable Allergies, Adverse Reactions, Alerts Substance Reaction Event Type Latex Info Not Available Drug Allergy Problems Problem Type Condition Code Onset Dates Condition Status Assessment Mixed dyslipidemia E78.2 Active Assessment Essential hypertension I10 Active Assessment Encounter for immunization Z23 Active Assessment Gastritis K29.70 Active Problem Anxiety F41.9 Active Problem Bipolar 1 disorder with moderate bassam F31.12 Active Problem Essential hypertension I10 Active Problem Bipolar disorder, current episode manic severe with psychotic features F31.2 Active Problem Anxiety disorder, unspecified F41.9 Active Problem Gastritis K29.70 Active Problem Mixed dyslipidemia E78.2 Active Medications Medication Code System Code Instructions Start Date End Date Status Dosage Fish Oil [facility] [address]-00 1000 MG Orally 4 times a day 1 capsule Zantac 150 Maximum Strength [facility] [address]-75 150 MG Orally Twice a day Aug 31, 2015 1 tablet Klonopin [facility] [address]-94 1 mg Orally 3 times a day 1 tablet Cialis [facility] [address]-33 5 MG Orally every 24 hrs 1 tablet Zyprexa Zydis [facility] [address]-95 5 MG Orally once a day Aug 10, 2015 1 tablet on the tongue and allow to dissolve Lisinopril [facility] [address]-19 20 MG Orally Once a day Aug 09, 2015 1 tablet Procedures Procedure Coding System Code Date FLUZONE QUAD (3 & UP)-SINGLE DOSE VIAL-SANOFI PASTEUR-2014 CPT-4 70960 Aug 31, 2015 SINGLE IMMUNIZATION ADMIN CPT-4 65899 Aug 31, 2015 Office Visit, Est Pt., Level 3 CPT-4 34444 Aug 31, 2015 Vital Signs Date/Time: Aug 31, 2015 Temperature 98.8 F Weight 299.5 lbs Height 70.0 in BMI 42.97 Index Blood Pressure Diastolic 80 mmHg Blood Pressure Systolic 122 mmHg Cardiac Monitoring Heart Rate 88 bpm Results No Known Results Immunizations Vaccine Administration Date FLUZONE QUAD (3 & UP)-SINGLE DOSE VIAL-SANOFI PASTEUR-2014Aug 31, 2015 Summary Purpose eClinicalWorks Submission
--- OUTSIDE RECORDS SUMMARY | 2018-09-15 17:32 | XMS REPORT ---
Author Author PAIGE IRVIN e[employer] Address Unknown Phone Unavailable Care Team Providers Care Pen Maker Name Role Phone PAIGE IRVIN CP Unavailable Allergies No Known Allergies Problems Problem Type Condition Code Onset Dates Condition Status Problem Anxiety disorder, unspecified F41.9 Active Assessment Hypertension I10 Active Problem Bipolar disorder, current episode manic severe with psychotic features F31.2 Active Medications No Known Medications Procedures Procedure Coding System Code Date COMPLETE CBC W/AUTO DIFF WBC CPT-4 16295 Aug 10, 2015 COMPREHEN METABOLIC PANEL CPT-4 22021 Aug 10, 2015 ASSAY THYROID STIM HORMONE CPT-4 23192 Aug 10, 2015 VENIPUNCT, ROUTINE* CPT-4 31102 Aug 10, 2015 LIPID PANEL CPT-4 64516 Aug 10, 2015 Results Name Result Date Reference Range Unit Abnormality Flag ROUTINE VENIPUNCTURE Summary Purpose eClinicalWorks Submission
--- OUTSIDE RECORDS SUMMARY | 2018-09-15 17:32 | XMS REPORT ---
Author Author JALIL PIERRE [facility] eClinicalWorks Address Unknown Phone Unavailable Care Team Providers Care Bale Stacker Name Role Phone JALIL PIERRE Unavailable Allergies [...] Instructions Start Date End Date Status Dosage Klonopin [facility] [address]-30 1 mg Orally 3 times a day 1 tablet Results No Known Results Summary Purpose eClinicalWorks Submission
--- OUTSIDE RECORDS SUMMARY | 2018-09-15 17:32 | XMS REPORT ---
Author COLIN Null e[employer] Address Unknown Phone Unavailable Care Team Providers Care Farm Management Agent Name Role Phone COLIN JIANG CP Unavailable Allergies No Known Allergies Problems Problem Type Condition Code Onset Dates Condition Status Assessment Dental examination Z01.20 Active Problem Anxiety F41.9 Active Problem Bipolar 1 disorder with moderate bassam F31.12 Active Problem Essential hypertension I10 Active Problem Bipolar disorder, current episode manic severe with psychotic features F31.2 Active Problem Anxiety disorder, unspecified F41.9 Active Problem Gastritis K29.70 Active Problem Mixed dyslipidemia E78.2 Active Medications No Known Medications Procedures Procedure Coding System Code Date BICUSPID CPT-4 D3320 March 20, 2016 Billing Notes on claim CPT-4 EC109 March 20, 2016 CROWN - PORCELAIN/CERAMIC SUBSTRATE CPT-4 D2740 March 20, 2016 Vital Signs Date/Time: March 20, 2016 Blood Pressure Diastolic 78 mmHg Blood Pressure Systolic 123 mmHg Height 70.0 in Results No Known Results Summary Purpose eClinicalWorks Submission
--- OUTSIDE RECORDS SUMMARY | 2018-09-15 17:32 | XMS REPORT ---
Author Author JORDAN MCKINNON Organization [employer] Address Unknown Phone Unavailable Care Team Providers Care Leather Scrubber Name Role Phone JORDAN MCKINNON CP Unavailable Allergies No Known Allergies Problems Problem Type Condition Code Onset Dates Condition Status Problem Anxiety disorder, unspecified F41.9 Active Assessment Bipolar disorder, current episode manic severe with psychotic features F31.2 Active Problem Bipolar disorder, current episode manic severe with psychotic features F31.2 Active Assessment Anxiety disorder, unspecified F41.9 Active Medications No Known Medications Procedures Procedure Coding System Code Date Psych diagnostic evaluation, new patient CPT-4 02429 Aug 09, 2015 Results No Known Results Summary Purpose eClinicalWorks Submission
--- OUTSIDE RECORDS SUMMARY | 2018-09-15 17:32 | XMS REPORT ---
Author Author JALIL PIERRE Organization [employer] Address Unknown Phone Unavailable Care Team Providers Care Specialty Molder Name Role Phone JALIL PIERRE CP Unavailable Allergies, Adverse Reactions, Alerts Substance Reaction Event Type Latex Info Not Available Drug Allergy Problems Problem Type Condition Code Onset Dates Condition Status Problem Anxiety disorder, unspecified F41.9 Active Assessment Essential hypertension I10 Active Problem Bipolar disorder, current episode manic severe with psychotic features F31.2 Active Medications Medication Code System Code Instructions Start Date End Date Status Dosage Lopid [facility] [address]-55 600 MG Orally Twice a day 1 tablet Zyprexa Zydis [facility] [address]-11 5 MG Orally once a day Aug 10, 2015 1 tablet on the tongue and allow to dissolve Fish Oil [facility] [address]-89 1000 MG Orally 4 times a day 1 capsule Prilosec [facility] [address]-62 20 MG Orally Once a day 2 capsules Klonopin [facility] [address]-72 1 mg Orally 3 times a day 1 tablet Procedures Procedure Coding System Code Date COMPLETE CBC W/AUTO DIFF WBC CPT-4 84745 Aug 10, 2015 LIPID PANEL CPT-4 08737 Aug 10, 2015 ASSAY THYROID STIM HORMONE CPT-4 72332 Aug 10, 2015 VENIPUNCT, ROUTINE* CPT-4 23562 Aug 10, 2015 COMPREHEN METABOLIC PANEL CPT-4 09661 Aug 10, 2015 Psych diagnostic evaluation w/medical services, established patient CPT-4 08011 Aug 10, 2015 Vital Signs Date/Time: Aug 10, 2015 Cardiac Monitoring Heart Rate 80 bpm Weight 301.3 lbs Height 70.0 in BMI 43.23 Index Blood Pressure Diastolic 96 mmHg Blood Pressure Systolic 135 mmHg Results Name Result Date Reference Range Unit Abnormality Flag ROUTINE VENIPUNCTURE Summary Purpose eClinicalWorks Submission
--- OUTSIDE RECORDS SUMMARY | 2018-09-15 17:33 | XMS REPORT | Continuity of Care Document ---
Author Author [facility] Organization [facility] Address Unknown Phone Unavailable Allergies Active Description Code Type Severity Reaction Onset Reported/Identified Relationship to Patient Clinical Status Yes NKANo Known Allergies NKA Miscellaneous Allergy Unknown N/A 10/21/2006 Medications There is no data. Problems Date Dx Coded Attending Type Code Diagnosis Diagnosed By 08/05/2015 SANDRA WOOD MD, Ot F12.10 CANNABIS ABUSE, UNCOMPLICATED 08/05/2015 SANDRA WOOD MD, Ot F17.211 NICOTINE DEPENDENCE, CIGARETTES, IN RADAMES 08/05/2015 SANDRA WOOD MD, Ot F41.9 ANXIETY DISORDER, UNSPECIFIED 08/05/2015 SANDRA WOOD MD, Ot I10 ESSENTIAL (PRIMARY) HYPERTENSION 08/09/2015 RHETT OTMLINSON DO Ot F12.10 CANNABIS ABUSE, UNCOMPLICATED 08/09/2015 RHETT TOMLINSON DO Ot I10 ESSENTIAL (PRIMARY) HYPERTENSION 08/09/2015 RHETT TOMLINSON DO Ot R55 SYNCOPE AND COLLAPSE 08/09/2015 RHETT TOMLINSON DO Ot Z63.8 OTHER SPECIFIED PROBLEMS RELATED TO PRIM 08/09/2015 RHETT TOMLINSON DO Ot Z79.899 OTHER SEAL MIXING OPERATOR (CURRENT) DRUG THERAPY 09/25/2016 BREANNE SWANSON APRN Ot F12.10 CANNABIS ABUSE, UNCOMPLICATED 09/25/2016 BREANNE SWANSON APRN Ot F41.9 ANXIETY DISORDER, UNSPECIFIED 09/25/2016 BREANNE SWANSON APRN Ot I10 ESSENTIAL (PRIMARY) HYPERTENSION 09/25/2016 BREANNE SWANSON APRN Ot M79.661 PAIN IN RIGHT LOWER LEG 09/25/2016 BREANNE SWANSON APRN Ot R11.2 NAUSEA WITH VOMITING, UNSPECIFIED 09/25/2016 BREANNE SWANSON APRN Ot R19.7 DIARRHEA, UNSPECIFIED 09/25/2016 BREANNE SWANSON APRN Ot Z79.899 OTHER SEAL MIXING OPERATOR (CURRENT) DRUG THERAPY 09/26/2016 BREANNE SWANSON APRN Ot F12.10 CANNABIS ABUSE, UNCOMPLICATED 09/26/2016 BREANNE SWANSON CREDIT COORDINATOR Ot F41.9 ANXIETY DISORDER, UNSPECIFIED 09/26/2016 BREANNE SWANSON CREDIT COORDINATOR Ot I10 ESSENTIAL (PRIMARY) HYPERTENSION 09/26/2016 BREANNE SWANSON CREDIT COORDINATOR Ot M79.661 PAIN IN RIGHT LOWER LEG 09/26/2016 BREANNE SWANSON CREDIT COORDINATOR Ot R11.2 NAUSEA WITH VOMITING, UNSPECIFIED 09/26/2016 BREANNE SWANSON APRN Ot R19.7 DIARRHEA, UNSPECIFIED 09/26/2016 BREANNE SWANSON APRN Ot Z79.899 OTHER SEAL MIXING OPERATOR (CURRENT) DRUG THERAPY 09/27/2016 DEMETRIO ZAPATA, BRYAN Tillman Ot F12.10 CANNABIS ABUSE, UNCOMPLICATED 09/27/2016 DEMETRIO ZAPATA, BRYAN Tillman Ot S83.91XA SPRAIN OF UNSPECIFIED SITE OF RIGHT KNEE 09/27/2016 BRYAN ATKINSON MD Ot S89.91XA UNSPECIFIED INJURY OF RIGHT LOWER LEG, I 09/27/2016 DEMETRIO ZAPATA, BRYAN Tillman Ot X58.XXXA EXPOSURE TO OTHER SPECIFIED FACTORS, INI 09/27/2016 BRYAN ATKINSON MD Ot Y92.39 [address] SP[facility]TS [address] A[address]LETIC AREA PLACE 09/27/2016 BRYAN ATKINSON MD Ot Y99.8 OTHER EXTERNAL CAUSE STATUS 09/27/2016 DEMETRIO ZAPATA, BRYAN Tillman Ot Z87.891 PERSONAL HISTORY OF NICOTINE DEPENDENCE 10/17/2016 BREANNE SWANSON APRN Ot F12.10 CANNABIS ABUSE, UNCOMPLICATED 10/17/2016 BREANNE SWANSON APRN Ot F41.9 ANXIETY DISORDER, UNSPECIFIED 10/17/2016 BREANNE SWANSON CREDIT COORDINATOR Ot I10 ESSENTIAL (PRIMARY) HYPERTENSION 10/17/2016 BREANNE SWANSON APRN Ot M79.661 PAIN IN RIGHT LOWER LEG 10/17/2016 BREANNE SWANSON APRN Ot R11.2 NAUSEA WITH VOMITING, UNSPECIFIED 10/17/2016 BREANNE SWANSON APRN Ot R19.7 DIARRHEA, UNSPECIFIED 10/17/2016 BREANNE SWANSON APRN Ot Z79.899 OTHER INTERMEDIATE (CURRENT) DRUG THERAPY 04/13/2017 AUBREY MONTALVO MD Ot F32.9 MAJOR DEPRESSIVE DISORDER, SINGLE EPISOD 04/13/2017 AUBREY MONTALVO MD Ot F41.9 ANXIETY DISORDER, UNSPECIFIED 04/13/2017 AUBREY MONTALVO MD Ot I10 ESSENTIAL (PRIMARY) HYPERTENSION 04/13/2017 AUBREY MONTALVO MD Ot R07.2 PRECORDIAL PAIN 04/13/2017 AUBREY MONTALVO MD Ot Z90.49 ACQUIRED ABSENCE OF OTHER SPECIFIED PART 01/21/2018 NASH AUGUSTO ARNP Ot F41.9 ANXIETY DISORDER, UNSPECIFIED 01/21/2018 AUGUSTO CAO HEALTH EQUIPMENT SERVICER Ot I10 ESSENTIAL (PRIMARY) HYPERTENSION 01/21/2018 AUGUSTO CAO JOSE RAMON Ot K21.9 GASTRO-ESOPHAGEAL REFLUX DISEASE WITHOUT 02/25/2018 AUGUSTO CAO JOSE RAMON Ot F41.9 ANXIETY DISORDER, UNSPECIFIED 02/25/2018 NASHPILO DIGGSDARIO ALBRIGHT Ot I10 ESSENTIAL (PRIMARY) HYPERTENSION 02/25/2018 NASH, AUGUSTOLEMUEL ALBRIGHT Ot K21.9 GASTRO-ESOPHAGEAL REFLUX DISEASE WITHOUT 03/23/2018 AUBREY MONTALVO MD Ot F12.10 CANNABIS ABUSE, UNCOMPLICATED 03/23/2018 AUBREY MONTALVO MD Ot F32.9 MAJOR DEPRESSIVE DISORDER, SINGLE EPISOD 03/23/2018 AUBREY MONTALVO MD Ot F41.0 PANIC DISORDER [EPISODIC PAROXYSMAL ANXI 03/23/2018 AUBREY MONTALVO MD Ot I10 ESSENTIAL (PRIMARY) HYPERTENSION 03/23/2018 AUBREY MONTALVO MD Ot K21.9 GASTRO-ESOPHAGEAL REFLUX DISEASE WITHOUT 03/23/2018 AUBREY MONTALVO MD Ot R07.81 PLEURODYNIA 03/23/2018 AUBREY MONTALVO MD Ot Z87.891 PERSONAL HISTORY OF NICOTINE DEPENDENCE 03/23/2018 AUBREY MONTALVO MD Ot Z90.89 ACQUIRED ABSENCE OF OTHER ORGANS 04/13/2018 CAROLINE ZAPATA, LEA Bangura Ot Z01.818 ENCOUNTER FOR OTHER PREPROCEDURAL EXAMIN Procedures There is no data. Results Test Result Range Complete blood count (CBC) with automated white blood cell (WBC) differential - 09/25/16 16:50 Blood leukocytes automated count (number/volume) 10.3 10*3/uL 4.3-11.0 Blood erythrocytes automated count (number/volume) 5.49 10*6/uL 4.35-5.85 Venous blood hemoglobin measurement (mass/volume) 16.3 g/dL 13.3-17.7 Blood hematocrit (volume fraction) 44 % 40-54 Automated erythrocyte mean corpuscular volume 81 [foz_us] 80-99 Automated erythrocyte mean corpuscular hemoglobin (mass per erythrocyte) 30 pg 25-34 Automated erythrocyte mean corpuscular hemoglobin concentration measurement ( mass/volume) 37 g/dL 32-36 Automated erythrocyte distribution width ratio 12.9 % 10.0-14.5 Automated blood platelet count (count/volume) 227 10*3/uL 130-400 Automated blood platelet mean volume measurement 9.9 [foz_us] 7.4-10.4 Automated blood neutrophils/100 leukocytes 85 % 42-75 Automated blood lymphocytes/100 leukocytes 10 % 12-44 Blood monocytes/100 leukocytes 4 % 0-12 Automated blood eosinophils/100 leukocytes 0 % 0-10 Automated blood basophils/100 leukocytes 0 % 0-10 Blood neutrophils automated count (number/volume) 8.8 10*3 1.8-7.8 Blood lymphocytes automated count (number/volume) 1.1 10*3 1.0-4.0 Blood monocytes automated count (number/volume) 0.4 10*3 0.0-1.0 Automated eosinophil count 0.0 10*3/uL 0.0-0.3 Automated blood basophil count (count/volume) 0.0 10*3/uL 0.0-0.1 Fibrin D-dimer FEU measurement in platelet poor plasma (mass/volume) - 16:50 Fibrin D-dimer FEU measurement in platelet poor plasma (mass/volume) 0.40 ug/mL 0.00-0.49 Comprehensive metabolic panel - 09/25/16 16:50 Serum or plasma sodium measurement (moles/volume) 132 mmol/L 135-145 Serum or plasma potassium measurement (moles/volume) 4.2 mmol/L 3.6-5.0 Serum or plasma chloride measurement (moles/volume) 101 mmol/L 98-107 Carbon dioxide 20 mmol/L 21-32 Serum or plasma anion gap determination (moles/volume) 11 mmol/L 5-14 Serum or plasma urea nitrogen measurement (mass/volume) 14 mg/dL 7-18 Serum or plasma creatinine measurement (mass/volume) 0.94 mg/dL 0.60-1.30 Serum or plasma urea nitrogen/creatinine mass ratio 15 NRG Serum or plasma creatinine measurement with calculation of estimated glomerular filtration rate > NRG Serum or plasma glucose measurement (mass/volume) 113 mg/dL 70-105 Serum or plasma calcium measurement (mass/volume) 8.7 mg/dL 8.5-10.1 Serum or plasma total bilirubin measurement (mass/volume) 0.7 mg/dL 0.1-1.0 Serum or plasma alkaline phosphatase measurement (enzymatic activity/volume) 65 U/L 40-136 Serum or plasma aspartate aminotransferase measurement (enzymatic activity/ volume) 19 U/L 5-34 Serum or plasma alanine aminotransferase measurement (enzymatic activity/volume ) 18 U/L 0-55 Serum or plasma protein measurement (mass/volume) 7.0 g/dL 6.4-8.2 Serum or plasma albumin measurement (mass/volume) 4.2 g/dL 3.2-4.5 Serum or plasma troponin i.cardiac measurement (mass/volume) - 09/25/16 16:50 Serum or plasma troponin i.cardiac measurement (mass/volume) < ng/ mL <0.30 Complete blood count (CBC) with automated white blood cell (WBC) differential - 04/13/17 00:46 Blood leukocytes automated count (number/volume) 6.0 10*3/uL 4.3-11.0 Blood erythrocytes automated count (number/volume) 5.13 10*6/uL 4.35-5.85 Venous blood hemoglobin measurement (mass/volume) 14.9 g/dL 13.3-17.7 Blood hematocrit (volume fraction) 42 % 40-54 Automated erythrocyte mean corpuscular volume 82 [foz_us] 80-99 Automated erythrocyte mean corpuscular hemoglobin (mass per erythrocyte) 29 pg 25-34 Automated erythrocyte mean corpuscular hemoglobin concentration measurement ( mass/volume) 36 g/dL 32-36 Automated erythrocyte distribution width ratio 12.8 % 10.0-14.5 Automated blood platelet count (count/volume) 218 10*3/uL 130-400 Automated blood platelet mean volume measurement 9.8 [foz_us] 7.4-10.4 Automated blood neutrophils/100 leukocytes 60 % 42-75 Automated blood lymphocytes/100 leukocytes 29 % 12-44 Blood monocytes/100 leukocytes 9 % 0-12 Automated blood eosinophils/100 leukocytes 2 % 0-10 Automated blood basophils/100 leukocytes 1 % 0-10 Blood neutrophils automated count (number/volume) 3.6 10*3 1.8-7.8 Blood lymphocytes automated count (number/volume) 1.7 10*3 1.0-4.0 Blood monocytes automated count (number/volume) 0.5 10*3 0.0-1.0 Automated eosinophil count 0.1 10*3/uL 0.0-0.3 Automated blood basophil count (count/volume) 0.0 10*3/uL 0.0-0.1 Comprehensive metabolic panel - 04/13/17 00:46 Serum or plasma sodium measurement (moles/volume) 138 mmol/L 135-145 Serum or plasma potassium measurement (moles/volume) 3.9 mmol/L 3.6-5.0 Serum or plasma chloride measurement (moles/volume) 102 mmol/L 98-107 Carbon dioxide 26 mmol/L 21-32 Serum or plasma anion gap determination (moles/volume) 10 mmol/L 5-14 Serum or plasma urea nitrogen measurement (mass/volume) 11 mg/dL 7-18 Serum or plasma creatinine measurement (mass/volume) 1.03 mg/dL 0.60-1.30 Serum or plasma urea nitrogen/creatinine mass ratio 11 NRG Serum or plasma creatinine measurement with calculation of estimated glomerular filtration rate > NRG Serum or plasma glucose measurement (mass/volume) 91 mg/dL 70-105 Serum or plasma calcium measurement (mass/volume) 9.8 mg/dL 8.5-10.1 Serum or plasma total bilirubin measurement (mass/volume) 0.5 mg/dL 0.1-1.0 Serum or plasma alkaline phosphatase measurement (enzymatic activity/volume) 53 U/L 40-136 Serum or plasma aspartate aminotransferase measurement (enzymatic activity/ volume) 26 U/L 5-34 Serum or plasma alanine aminotransferase measurement (enzymatic activity/volume ) 26 U/L 0-55 Serum or plasma protein measurement (mass/volume) 7.0 g/dL 6.4-8.2 Serum or plasma albumin measurement (mass/volume) 4.3 g/dL 3.2-4.5 Magnesium - 04/13/17 00:46 Magnesium 2.3 mg/dL 1.8-2.4 Serum or plasma troponin i.cardiac measurement (mass/volume) - 04/13/17 00:46 Serum or plasma troponin i.cardiac measurement (mass/volume) < ng/ mL <0.30 Complete blood count (CBC) with automated white blood cell (WBC) differential - 01/20/18 10:43 Blood leukocytes automated count (number/volume) 4.8 10*3/uL 4.3-11.0 Blood erythrocytes automated count (number/volume) 4.75 10*6/uL 4.35-5.85 Venous blood hemoglobin measurement (mass/volume) 14.1 g/dL 13.3-17.7 Blood hematocrit (volume fraction) 40 % 40-54 Automated erythrocyte mean corpuscular volume 84 [foz_us] 80-99 Automated erythrocyte mean corpuscular hemoglobin (mass per erythrocyte) 30 pg 25-34 Automated erythrocyte mean corpuscular hemoglobin concentration measurement ( mass/volume) 35 g/dL 32-36 Automated erythrocyte distribution width ratio 13.3 % 10.0-14.5 Automated blood platelet count (count/volume) 193 10*3/uL 130-400 Automated blood platelet mean volume measurement 10.0 [foz_us] 7.4-10.4 Automated blood neutrophils/100 leukocytes 50 % 42-75 Automated blood lymphocytes/100 leukocytes 38 % 12-44 Blood monocytes/100 leukocytes 8 % 0-12 Automated blood eosinophils/100 leukocytes 3 % 0-10 Automated blood basophils/100 leukocytes 1 % 0-10 Blood neutrophils automated count (number/volume) 2.4 10*3 1.8-7.8 Blood lymphocytes automated count (number/volume) 1.8 10*3 1.0-4.0 Blood monocytes automated count (number/volume) 0.4 10*3 0.0-1.0 Automated eosinophil count 0.2 10*3/uL 0.0-0.3 Automated blood basophil count (count/volume) 0.1 10*3/uL 0.0-0.1 Comprehensive metabolic panel - 01/20/18 10:43 Serum or plasma sodium measurement (moles/volume) 138 mmol/L 135-145 Serum or plasma potassium measurement (moles/volume) 4.3 mmol/L 3.6-5.0 Serum or plasma chloride measurement (moles/volume) 107 mmol/L 98-107 Carbon dioxide 24 mmol/L 21-32 Serum or plasma anion gap determination (moles/volume) 7 mmol/L 5-14 Serum or plasma urea nitrogen measurement (mass/volume) 12 mg/dL 7-18 Serum or plasma creatinine measurement (mass/volume) 0.77 mg/dL 0.60-1.30 Serum or plasma urea nitrogen/creatinine mass ratio 16 NRG Serum or plasma creatinine measurement with calculation of estimated glomerular filtration rate > NRG Serum or plasma glucose measurement (mass/volume) 88 mg/dL 70-105 Serum or plasma calcium measurement (mass/volume) 8.9 mg/dL 8.5-10.1 Serum or plasma total bilirubin measurement (mass/volume) 0.5 mg/dL 0.1-1.0 Serum or plasma alkaline phosphatase measurement (enzymatic activity/volume) 50 U/L 40-136 Serum or plasma aspartate aminotransferase measurement (enzymatic activity/ volume) 23 U/L 5-34 Serum or plasma alanine aminotransferase measurement (enzymatic activity/volume ) 24 U/L 0-55 Serum or plasma protein measurement (mass/volume) 6.6 g/dL 6.4-8.2 Serum or plasma albumin measurement (mass/volume) 4.0 g/dL 3.2-4.5 Magnesium - 01/20/18 10:43 Magnesium 2.1 mg/dL 1.8-2.4 Lipid 1996 panel - 01/20/18 10:43 Serum or plasma triglyceride measurement (mass/volume) 190 mg/dL <150 Serum or plasma cholesterol measurement (mass/volume) 180 mg/dL < 200 Serum or plasma cholesterol in HDL measurement (mass/volume) 33 mg/ dL 40-60 Cholesterol in LDL [mass/volume] in serum or plasma by direct assay 126 mg/dL 1-129 Serum or plasma cholesterol in VLDL measurement (mass/volume) 38 mg/ dL 5-40 THYROID STIMULATING HORMONE - 01/20/18 10:43 THYROID STIMULATING HORMONE 0.65 u[iU]/mL 0.35-4.94 Serum or plasma thyroxine (T4) free measurement (mass/volume) - 01/20/18 10:43 Serum or plasma thyroxine (T4) free measurement (mass/volume) 0.82 ng/dL 0.70-1.48 Cyanocobalamin measurement - 01/20/18 10:43 Vitamin B12 299 pg/mL 190-1100 Complete blood count (CBC) with automated white blood cell (WBC) differential - 03/21/18 23:15 Blood leukocytes automated count (number/volume) 8.2 10*3/uL 4.3-11.0 Blood erythrocytes automated count (number/volume) 5.01 10*6/uL 4.35-5.85 Venous blood hemoglobin measurement (mass/volume) 15.1 g/dL 13.3-17.7 Blood hematocrit (volume fraction) 42 % 40-54 Automated erythrocyte mean corpuscular volume 84 [foz_us] 80-99 Automated erythrocyte mean corpuscular hemoglobin (mass per erythrocyte) 30 pg 25-34 Automated erythrocyte mean corpuscular hemoglobin concentration measurement ( mass/volume) 36 g/dL 32-36 Automated erythrocyte distribution width ratio 13.0 % 10.0-14.5 Automated blood platelet count (count/volume) 255 10*3/uL 130-400 Automated blood platelet mean volume measurement 9.6 [foz_us] 7.4-10.4 Automated blood neutrophils/100 leukocytes 47 % 42-75 Automated blood lymphocytes/100 leukocytes 42 % 12-44 Blood monocytes/100 leukocytes 7 % 0-12 Automated blood eosinophils/100 leukocytes 3 % 0-10 Automated blood basophils/100 leukocytes 1 % 0-10 Blood neutrophils automated count (number/volume) 3.9 10*3 1.8-7.8 Blood lymphocytes automated count (number/volume) 3.4 10*3 1.0-4.0 Blood monocytes automated count (number/volume) 0.6 10*3 0.0-1.0 Automated eosinophil count 0.3 10*3/uL 0.0-0.3 Automated blood basophil count (count/volume) 0.1 10*3/uL 0.0-0.1 PT panel in platelet poor plasma by coagulation assay - 03/21/18 23:15 Prothrombin time (PT) in platelet poor plasma by coagulation assay 14.5 s 12.2-14.7 INR in platelet poor plasma or blood by coagulation assay 1.1 0.8-1.4 Activated partial thromboplastin time (aPTT) in platelet poor plasma bycoagulation assay - 03/21/18 23:15 Activated partial thromboplastin time (aPTT) in platelet poor plasma bycoagulation assay 34 s 24-35 Streptococcus pyogenes antigen detection - 03/21/18 23:15 Streptococcus pyogenes antigen detection NEGATIVE NEGATIVE Comprehensive metabolic panel - 03/21/18 23:15 Serum or plasma sodium measurement (moles/volume) 137 mmol/L 135-145 Serum or plasma potassium measurement (moles/volume) 3.9 mmol/L 3.6-5.0 Serum or plasma chloride measurement (moles/volume) 104 mmol/L 98-107 Carbon dioxide 22 mmol/L 21-32 Serum or plasma anion gap determination (moles/volume) 11 mmol/L 5-14 Serum or plasma urea nitrogen measurement (mass/volume) 12 mg/dL 7-18 Serum or plasma creatinine measurement (mass/volume) 1.08 mg/dL 0.60-1.30 Serum or plasma urea nitrogen/creatinine mass ratio 11 NRG Serum or plasma creatinine measurement with calculation of estimated glomerular filtration rate > NRG Serum or plasma glucose measurement (mass/volume) 120 mg/dL 70-105 Serum or plasma calcium measurement (mass/volume) 9.6 mg/dL 8.5-10.1 Serum or plasma total bilirubin measurement (mass/volume) 0.5 mg/dL 0.1-1.0 Serum or plasma alkaline phosphatase measurement (enzymatic activity/volume) 62 U/L 40-136 Serum or plasma aspartate aminotransferase measurement (enzymatic activity/ volume) 22 U/L 5-34 Serum or plasma alanine aminotransferase measurement (enzymatic activity/volume ) 16 U/L 0-55 Serum or plasma protein measurement (mass/volume) 7.3 g/dL 6.4-8.2 Serum or plasma albumin measurement (mass/volume) 4.5 g/dL 3.2-4.5 Magnesium - 03/21/18 23:15 Magnesium 2.3 mg/dL 1.8-2.4 Serum or plasma troponin i.cardiac measurement (mass/volume) - 03/21/18 23:15 Serum or plasma troponin i.cardiac measurement (mass/volume) < ng/ mL <0.30 Myoglobin, serum - 03/21/18 23:15 Myoglobin, serum 61.2 ng/mL 10.0-92.0 Lipase - 03/21/18 23:15 Lipase 25 U/L 8-78 Bacterial throat culture - 03/21/18 23:15 Bacterial throat culture NBS NRG Encounters ACCT No. Visit Date/Time Discharge Status Pt. Type Provider Facility Loc./Unit Complaint [id number] 04/12/2018 05:35:00 04/12/2018 23:59:59 CLS Outpatient CAROLINE ZAPATA, LEA Bangura [facility] PREOP EGD [id number] 03/21/2018 23:09:00 03/22/2018 00:19:00 DIS Outpatient SELVIN ZAPATA, AUBREY Greenfield [facility] ER CP [id number] 01/20/2018 10:14:00 01/20/2018 23:59:59 CLS Outpatient AUGUSTO CAO [facility] LAB GERD [id number] 04/12/2017 22:58:00 04/13/2017 01:49:00 DIS Emergency SELVIN ZAPATA, AUBREY [place] [facility] ER AB PAIN FEELS LIKE CHEST IS BURNING [id number] 09/27/2016 13:28:00 09/27/2016 15:15:00 DIS Emergency DEMETRIO ZAPATA, BRYAN Tillman [facility] ER R KNEE PAIN [id number] 09/25/2016 16:16:00 09/25/2016 17:47:00 DIS Emergency BREANNE SWANSON APRN [facility] ER N,V,D [id number] 08/09/2015 17:53:00 08/09/2015 19:50:00 DIS Emergency RHETT TOMLINSON DO [facility] ER ELEVATED BLOOD PRESSURE [id number] 08/05/2015 18:49:00 08/05/2015 20:41:00 DIS Emergency SANDRA WOOD MD [facility] ER ANXIETY,DEPRESSION [id number] 04/13/2018 06:56:00 Document Registration
--- OUTSIDE RECORDS SUMMARY | 2018-09-15 17:33 | XMS REPORT ---
Author COLIN Null [employer] Address Unknown Phone Unavailable Care Team Providers Care Handling Tech Name Role Phone COLIN JIANG CP Unavailable Allergies, Adverse Reactions, Alerts Substance Reaction Event Type Latex rash Drug Allergy Problems Problem Type Condition Code Onset Dates Condition Status Assessment Dental examination Z01.20 Active Problem Anxiety F41.9 Active Problem Bipolar 1 disorder with moderate basasm F31.12 Active Problem Essential hypertension I10 Active Problem Bipolar disorder, current episode manic severe with psychotic features F31.2 Active Problem Anxiety disorder, unspecified F41.9 Active Problem Gastritis K29.70 Active Problem Mixed dyslipidemia E78.2 Active Medications Medication Code System Code Instructions Start Date End Date Status Dosage Fish Oil [facility] [address]-11 1000 MG Orally 4 times a day 1 capsule Lisinopril [facility] [address]-61 20 mg Orally Once a day Aug 09, 2015 1 tablet Zantac 150 Maximum Strength [facility] [address]-97 150 MG Orally Twice a day Aug 31, 2015 1 tablet Klonopin [facility] [address]-89 1 MG Orally 3 times a day 1 tablet Procedures Procedure Coding System Code Date Dental no charge CPT-4 [id number] Apr 10, 2016 Vital Signs Date/Time: Apr 10, 2016 Blood Pressure Diastolic 87 mmHg Blood Pressure Systolic 126 mmHg Height 70.0 in Results No Known Results Summary Purpose [employer] Submission
== END 2018-09-15 16:38 | disposition home or self-care (01) ==
LOC: EDUNIT# 13:56 → ER 13:57
DX: R00.0 Tachycardia, unspecified (principal); F41.9 Anxiety disorder, unspecified; F32.9 Major depressive disorder, single episode, unspecified; I10 Essential (primary) hypertension; F12.90 Cannabis use, unspecified, uncomplicated; F17.290 Nicotine dependence, other tobacco product, uncomplicated; F17.210 Nicotine dependence, cigarettes, uncomplicated; Z90.49 Acquired absence of other specified parts of digestive tract; Z98.890 Other specified postprocedural states
CPT/HCPCS: 36415; 71045; 80053; 81000; 83735; 84443; 84484; 85025; 85379; 93041

== ENCOUNTER 2018-10-07 09:33 | Emergency (ER) | payer OTHER ==
[~2018-10-07] VITALS: Ht 182.9 cm; Wt 124.7 kg
[2018-10-07 10:02] LABS: BASOPHILS # (AUTO) 0.1 10^3/uL (0.0-0.1); BASOPHILS % (AUTO) 1 % (0-10); EOSINOPHILS # (AUTO) 0.2 10^3/uL (0.0-0.3); EOSINOPHILS % (AUTO) 2 % (0-10); HEMATOCRIT 46 % (40-54); HEMOGLOBIN 16.4 G/DL (13.3-17.7); LYMPHOCYTES # (AUTO) 2.4 X 10^3 (1.0-4.0); LYMPHOCYTES % (AUTO) 34 % (12-44); MEAN CORPUSCULAR HEMOGLOBIN 29 PG (25-34); MEAN CORPUSCULAR HGB CONC 36 G/DL (32-36); MEAN CORPUSCULAR VOLUME 82 FL (80-99); MONOCYTES # (AUTO) 0.5 X 10^3 (0.0-1.0); MONOCYTES % (AUTO) 7 % (0-12); NEUTROPHILS # (AUTO) 3.8 X 10^3 (1.8-7.8); NEUTROPHILS % (AUTO) 55 % (42-75); PLATELET COUNT 213 10^3/uL (130-400); WHITE BLOOD COUNT 6.9 10^3/uL (4.3-11.0)
[2018-10-07 10:22] LABS: ALANINE AMINOTRANSFERASE 20 U/L (0-55); ALBUMIN 4.5 GM/DL (3.2-4.5); ALKALINE PHOSPHATASE 69 U/L (40-136); BILIRUBIN,TOTAL 0.5 MG/DL (0.1-1.0); BUN/CREATININE RATIO 14; CALCIUM 9.9 MG/DL (8.5-10.1); CARBON DIOXIDE 26 MMOL/L (21-32); CHLORIDE 105 MMOL/L (98-107); CREATININE SERUM 0.96 MG/DL (0.60-1.30); GFR ESTIMATED > 60; GLUCOSE 96 MG/DL (70-105); POTASSIUM 3.6 MMOL/L (3.6-5.0); SODIUM 140 MMOL/L (135-145); TOTAL PROTEIN 7.6 GM/DL (6.4-8.2)
--- NOTE | 2018-10-07 10:48 | ED Chest Pain ---
General Chief Complaint: Chest Pain Stated Complaint: CHEST PAIN Nursing Triage Note: PT PRESENTS TO ED WITH COMPLAINTS OF MEDIAL CP SINCE YESTERDAY NIGHT WHEN LAYING DOWN. REPORTS INITALLY LAST NIGHT HE THOUGHT IT WAS ACID REFLUX AND NOTICED WHEN HE PUT PRESSURE ON THE STERNUM IT INCREASED HIS PAIN. PT STATES HE DID BECOME DIAPHORETIC AND THAT CONCERNED HIM. PT REPORTS HE HAS HAD SOME MILDER PAIN THIS AM. PT STATES THE PAST 4 DAYS HE HAS BEEN LOWER HIS DOSE OF CLONAPINE DUE TO INCREASED FEELING OF DEPRESSION. PT REPORTS HE FEELS LIKE HIS ANXIETY IS INCREASED WELL. Nursing Sepsis Screen: No Definite Risk Source: patient Exam Limitations: no limitations History of Present Illness Date Seen by Provider: Oct 07, 2018 Time Seen by Provider: 10:45 Initial Comments The patient is a 38-year-old white male known to me. He reports that he has been having left-sided chest pain off and on for about one week. The first recollection of this was left sided and as a result of using both arms to press up out of bed. It has been intermittent and not clearly related to exercise. He reports that he has been attempting to wean down his dose of Klonopin over the past week as well he has had periods of anxiety and sweating not directly related to chest. He has taken Klonopin at intervals since he was in high school. Timing/Duration: 1 week Severity/Quality: mild Location: central Activities at Onset: none Prior CP/Workup: no prior chest pain Allergies and Home Medications Allergies Coded Allergies: NKANo Known Allergies (Verified Allergy, Unknown, 10/21/06) latex (Verified Allergy, Unknown, 10/07/18) Home Medications Clonazepam 1 Mg Tablet, 1 MG PO TID, (Reported) Sucralfate 1 Gm Tablet, 1 GM PO QIDACHS Prescribed by: AUBREY MONTALVO on 03/22/18 0012 Patient Home Medication List Home Medication List Reviewed: Yes Review of Systems Review of Systems Constitutional: see HPI EENTM: No Symptoms Reported Respiratory: No Symptoms Reported Cardiovascular: See HPI Gastrointestinal: No Symptoms Reported Genitourinary: No Symptoms Reported Musculoskeletal: no symptoms reported Skin: no symptoms reported Psychiatric/Neurological: No Symptoms Reported Endocrine: No Symptoms Reported Hematologic/Lymphatic: No Symptoms Reported Past Vywltwl-Jaazbz-Dfxplv Hx Patient Social History Alcohol Use: Denies Use Recreational Drug Use: Yes (QUIT MARIJUANA ON AUG 24 2018) Drug of Choice: POT Smoking Status: Former Smoker Type Used: Cigarettes, Electronic/Vapor Former Smoker, Quit: Oct 02, 2006 2nd Hand Smoke Exposure: No Recent Foreign Travel: No Contact w/Someone Who Travel: No Recent Infectious Disease Expo: No Recent Hopitalizations: No Physical Abuse: No Sexual Abuse: No Mistreated: No Fear: No Immunizations Up To Date Tetanus Booster (TDap): Unknown PED Vaccines UTD: No Seasonal Allergies Seasonal Allergies: Yes Past Medical History Surgeries: Yes (X1 WISDOM TOOTH REMOVED,CUT FINGER REPAIRED) Appendectomy, Gallbladder Respiratory: No Cardiac: Yes Hypertension Neurological: No Reproductive Disorders: No Genitourinary: No Gastrointestinal: No Musculoskeletal: Yes Chronic Back Pain Endocrine: No HEENT: No Cancer: No Psychosocial: Yes Anxiety, Depression Integumentary: No Blood Disorders: No Physical Exam Vital Signs Vital Signs - First Documented 10/07/18 09:54 Temp 97.0 Pulse 134 Resp 20 B/P (MAP) 141/94 (110) Pulse Ox 99 O2 Delivery Room Air Capillary Refill : Less Than 3 Seconds Height, Weight, BMI Height: 6'0" Weight: 275lbs. oz. 124.742245xg; 40.68 BMI Method:Stated General Appearance: Anxious, Mild Distress HEENT: Normal ENT Inspection Neck: Normal Inspection Respiratory: Chest Non Tender, Lungs Clear, Normal Breath Sounds, No Accessory Muscle Use, No Respiratory Distress Cardiovascular: Tachycardia Gastrointestinal: Normal Bowel Sounds, No Organomegaly, No Pulsatile Mass, Non Tender, Other Extremity: Normal Capillary Refill, Normal Inspection, Normal Range of Motion, Non Tender, No Calf Tenderness, No Pedal Edema Neurologic/Psychiatric: Alert, Oriented x3, No Motor/Sensory Deficits, Normal Mood/Affect Skin: Normal Color, Warm/Dry Lymphatic: No Adenopathy Progress/Results/Core Measures Results/Orders Lab Results Laboratory Tests Test 10/07/18 09:49 10/07/18 11:20 Range/Units White Blood Count 6.9 4.3-11.0 10^3/uL Red Blood Count 5.64 4.35-5.85 10^6/uL Hemoglobin 16.4 13.3-17.7 G/DL Hematocrit 46 40-54 % Mean Corpuscular Volume 82 80-99 FL Mean Corpuscular Hemoglobin 29 25-34 PG Mean Corpuscular Hemoglobin Concent 36 32-36 G/DL Red Cell Distribution Width 13.0 10.0-14.5 % Platelet Count 213 130-400 10^3/uL Mean Platelet Volume 10.0 7.4-10.4 FL Neutrophils (%) (Auto) 55 42-75 % Lymphocytes (%) (Auto) 34 12-44 % Monocytes (%) (Auto) 7 0-12 % Eosinophils (%) (Auto) 2 0-10 % Basophils (%) (Auto) 1 0-10 % Neutrophils # (Auto) 3.8 1.8-7.8 X 10^3 Lymphocytes # (Auto) 2.4 1.0-4.0 X 10^3 Monocytes # (Auto) 0.5 0.0-1.0 X 10^3 Eosinophils # (Auto) 0.2 0.0-0.3 10^3/uL Basophils # (Auto) 0.1 0.0-0.1 10^3/uL Sodium Level 140 135-145 MMOL/L Potassium Level 3.6 3.6-5.0 MMOL/L Chloride Level 105 98-107 MMOL/L Carbon Dioxide Level 26 21-32 MMOL/L Anion Gap 9 5-14 MMOL/L Blood Urea Nitrogen 13 7-18 MG/DL Creatinine 0.96 0.60-1.30 MG/DL Estimat Glomerular Filtration Rate > 60 BUN/Creatinine Ratio 14 Glucose Level 96 70-105 MG/DL Calcium Level 9.9 8.5-10.1 MG/DL Corrected Calcium 9.5 8.5-10.1 MG/DL Total Bilirubin 0.5 0.1-1.0 MG/DL Aspartate Amino Transf (AST/SGOT) 21 5-34 U/L Alanine Aminotransferase (ALT/SGPT) 20 0-55 U/L Alkaline Phosphatase 69 40-136 U/L Troponin I < 0.028 <0.028 NG/ML Total Protein 7.6 6.4-8.2 GM/DL Albumin 4.5 3.2-4.5 GM/DL Urine Opiates Screen NEGATIVE NEGATIVE Urine Oxycodone Screen NEGATIVE NEGATIVE Urine Methadone Screen NEGATIVE NEGATIVE Urine Propoxyphene Screen NEGATIVE NEGATIVE Urine Barbiturates Screen NEGATIVE NEGATIVE Ur Tricyclic Antidepressants Screen NEGATIVE NEGATIVE Urine Phencyclidine Screen NEGATIVE NEGATIVE Urine Amphetamines Screen NEGATIVE NEGATIVE Urine Methamphetamines Screen NEGATIVE NEGATIVE Urine Benzodiazepines Screen NEGATIVE NEGATIVE Urine Cocaine Screen NEGATIVE NEGATIVE Urine Cannabinoids Screen NEGATIVE NEGATIVE My Orders Orders - PAM NUÑEZ MD Cbc With Automated Diff (10/07/18 09:39) Comprehensive Metabolic Panel (10/07/18 09:39) Troponin I (10/07/18 09:39) Ekg Tracing (10/07/18 09:39) Chest 1 View, Ap/Pa Only (10/07/18 09:39) Drug Screen Stat (Urine) (10/07/18 10:22) Vital Signs/I&O 10/07/18 10/07/18 09:54 09:54 Temp 97.0 Pulse 134 Resp 20 B/P (MAP) 141/94 (110) Pulse Ox 99 O2 Delivery Room Air Blood Pressure Mean: 110 Departure Communication (Admissions) Discussed the chest x-ray, laboratory studies and cardiogram. These are all normal. Impression Primary Impression: non-myocardial chest pain Disposition: 01 HOME, SELF-CARE Condition: Improved Departure-Patient Inst. Decision time for Depature: 11:56 Referrals: NO,LOCAL PHYSICIAN (PCP) Primary Care Physician Patient Instructions: Chest Pain That Is Not Caused by the Heart (DC) Add. Discharge Instructions: All discharge instructions reviewed with patient and/or family. Voiced understanding. Continued to slowly reduce your dose of Klonopin PAM NUÑEZ MD Oct 07, 2018 10:48
--- NOTE | 2018-10-07 10:52 | Diagnostic Imaging Report ---
INDICATION: Chest pain and elevated blood pressure. TIME OF EXAM:10:24 AM CORRELATION is made with prior study from 09/15/2018. FINDINGS: The heart size is normal. The pulmonary vascularity is unremarkable. The lungs are clear. No infiltrate, effusion or pneumothorax is detected. IMPRESSION: No acute cardiopulmonary process is detected. Dictated by: Dictated on workstation # [id number]
[2018-10-07 11:42] LABS: AMPHETAMINE SCREEN, URINE NEGATIVE (NEGATIVE); BARBITURATE SCREEN URINE NEGATIVE (NEGATIVE); BENZODIAZEPINES SCREEN URINE NEGATIVE (NEGATIVE); CANNABINOID SCREEN, URINE NEGATIVE (NEGATIVE); COCAINE SCREEN URINE NEGATIVE (NEGATIVE); METHADONE STAT NEGATIVE (NEGATIVE); METHAMPHETAMINE SCREEN URINE S NEGATIVE (NEGATIVE); OPIATE SCREEN URINE NEGATIVE (NEGATIVE); OXYCODONE STAT NEGATIVE (NEGATIVE); PROPOXYPHENE STAT NEGATIVE (NEGATIVE); TRICYCLIC ANTIDEPRESSANTS SCRE NEGATIVE (NEGATIVE)
[2018-10-07 12:28] VITALS: BP 107/79
== END 2018-10-07 12:28 | disposition home or self-care (01) ==
LOC: EDUNIT# 09:33 → ER 09:35
DX: R07.89 Other chest pain (principal); F12.10 Cannabis abuse, uncomplicated; I10 Essential (primary) hypertension; F41.9 Anxiety disorder, unspecified; F32.9 Major depressive disorder, single episode, unspecified; Z91.040 Latex allergy status; Z87.891 Personal history of nicotine dependence; Z90.49 Acquired absence of other specified parts of digestive tract
CPT/HCPCS: 36415; 71045; 80053; 80306; 84484; 85025; 93005

== ENCOUNTER → 2018-11-02 | Outpatient (CLI) | payer OTHER | LOC: CARD 12:46 | PROVIDERS: ATTEND Internal Medicine Cardiovascular Disease | DX: R00.2 Palpitations (principal); R07.89 Other chest pain; E66.8 Other obesity | CPT/HCPCS: 93351 ==

== ENCOUNTER → 2018-11-16 | Outpatient (CLI) | payer OTHER | LOC: CARD 11:40 | PROVIDERS: ATTEND Internal Medicine Cardiovascular Disease | DX: R00.2 Palpitations (principal); R07.89 Other chest pain; E66.8 Other obesity | CPT/HCPCS: 93225; 93226 ==

== ENCOUNTER → 2018-11-18 | Outpatient (CLI) | payer OTHER ==
[2018-11-18 12:00] LABS: BUN/CREATININE RATIO 15; CALCIUM 9.9 MG/DL (8.5-10.1); CARBON DIOXIDE 28 MMOL/L (21-32); CHLORIDE 106 MMOL/L (98-107); CREATININE SERUM 0.97 MG/DL (0.60-1.30); GFR ESTIMATED > 60; GLUCOSE 85 MG/DL (70-105); MAGNESIUM 2.1 MG/DL (1.8-2.4); POTASSIUM 4.2 MMOL/L (3.6-5.0); SODIUM 139 MMOL/L (135-145)
== END ==
LOC: LAB 11:31
PROVIDERS: ATTEND Internal Medicine Cardiovascular Disease
DX: R00.2 Palpitations (principal); R07.89 Other chest pain; E66.8 Other obesity; I11.9 Hypertensive heart disease without heart failure
CPT/HCPCS: 36415; 80048; 83735; 84443; 85652

== ENCOUNTER 2019-04-03 18:55 | Emergency (ER) | payer OTHER ==
[~2019-04-03] VITALS: Ht 182.9 cm; Wt 113.4 kg
[~2019-04-03 18:55] MED LIST changes: -OMEP20CA12 PO; +OMEP20CA13 PO
--- OUTSIDE RECORDS SUMMARY | 2019-04-03 18:59 | XMS REPORT | Clinical Summary ---
Author Author [facility] Organization [facility] Address Unknown Phone Unavailable Care Team Providers Care Robotics Specialist Name Role Phone No Pcp, Na PCP Unavailable Source Comments Some departments are not documenting in the electronic medical record. If you d o not see the information that you expected, contact Release of Information in [facility] [employer] Information Management department at [phone] for further assistan ce in locating additional records.[facility] Allergies Not on File Medications Not on file Active Problems Not on file Social History Date Tobacco Use Types Packs/Day Years Used Never Assessed Sex Assigned at Date Recorded Not on file Industry Job Start Date Occupation Not on file Not on file Not on file Travel End Travel History Travel Start No recent travel history available. Last Filed Vital Signs Not on file Plan of Treatment Health Maintenance Due Date Last Done Comments PHYSICAL (COMPREHENSIVE) 1985 EXAM HIV SCREENING 1993 DTAP/TDAP VACCINES (1 - 1996 Tdap) INFLUENZA VACCINE 05/24/2019 Results Not on filefrom Last 3 Months Advance Directives Patient Technical Proposal Writer Explanation Type Date Recorded Advance Directive/DPOA
--- OUTSIDE RECORDS SUMMARY | 2019-04-03 18:59 | XMS REPORT | Encounter Summary ---
Author Author [facility] Organization [facility] Address Unknown Phone Unavailable Care Team Providers Care Ops Analyst Name Role Phone PCP Unavailable Reason for Visit * Reason Comments Records Request Request faxed to Dr Nakul Griffin, requested records be faxed to [facility] Encounter Details Care Team Description Date Type Department Veronika Bassett Records Request (Request faxed to Dr Nakul Griffin, requested records be faxed to [facility]) 10/25/[address] [address] Social History Date Tobacco Use Types Packs/Day Years Used Never Assessed Sex Assigned at Date Recorded Not on file Industry Job Start Date Occupation Not on file Not on file Not on file Travel End Travel History Travel Start No recent travel history available. documented as of this encounter Miscellaneous Notes * Telephone Encounter - Humera Johnson - 10/26/2018 11:10 AM [facility] STORAGE ARCHITECT 10/26/18- Records received from Dr. Nakul Griffin for 11/26/[address] Stern. Records scanned in patient's chart viewable through [employer]. freddy STORAGE ARCHITECT documented in this encounter Plan of Treatment Not on filedocumented as of this encounter Visit Diagnoses Not on filedocumented in this encounter
--- OUTSIDE RECORDS SUMMARY | 2019-04-03 18:59 | XMS REPORT ---
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 Active 74429615 Problem Panic disorder F41.0 Active 041749914 Problem Essential hypertension I10 Active 29536785 Problem Gastritis K29.70 Active 9762066 Problem Gastroesophageal reflux disease with esophagitis K21.0 Active 772820466 Problem Generalized anxiety disorder F41.1 Active 05852241 ALLERGIES No Information ENCOUNTERS Encounter Location Date Diagnosis [place] [id number] [place] [phone] Feb, [place] [id number] [place] [phone] Jan, Generalized anxiety disorder F41.1 ; 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 and Panic disorder F41.0 [place] [id number] [place] [phone] December, Generalized anxiety disorder F41.1 ; 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 and Panic disorder F41.0 [place] [id number] [place] [phone] December, [place] [id number] [place] [phone] December, Generalized anxiety disorder F41.1 ; 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 and Panic disorder F41.0 [place] [id number] [place] [phone] December, Generalized anxiety disorder F41.1 ; 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 and Panic disorder F41.0 [facility] [id number] [place] [phone] December, Generalized anxiety disorder F41.1 ; 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 and Panic disorder F41.0 [facility] [id number] [place] [phone] Nov, Generalized anxiety disorder F41.1 ; 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 and Panic disorder F41.0 [facility] [id number] [place] [phone] Nov, [facility] [address] [address] Nov, [facility] [id number] [place] [phone] Nov, Generalized anxiety disorder F41.1 and 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 [facility] [id number] [place] [phone] Nov, [facility] [address] [address] Nov, Generalized anxiety disorder F41.1 and 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 [facility] [id number] [place] [phone] Nov, Generalized anxiety disorder F41.1 and Bipolar 1 disorder F31.9 [facility] [id number] [place] [id number] 07 Jul, 2017 Sore throat J02.9 ; Right ear impacted cerumen H61.21 ; Other viral agents as the cause of diseases classified elsewhere B97.89 and Acute upper respiratory infection, unspecified J06.9 [facility] [id number] [place] [id number] 15 Apr, 2017 Encounter for dental examination Z01.20 [facility] [address] [place] [id number] Feb, Dental examination Z01.20 [facility] [id number] [place] [phone] Feb, Acute non-recurrent maxillary sinusitis J01.00 [facility] [id number] [place] [phone] Aug, Cough R05 ; Other viral agents as the cause of diseases classified elsewhere B97.89 ; Acute upper respiratory infection, unspecified J06.9 and Acute effusion of right ear H65.191 [facility] [address] [id number] May, Dental examination Z01.20 [facility] [address] [address] May, Dental examination Z01.20 [facility] [address] [id number] Apr, Dental examination Z01.20 [facility] [id number] [place] [phone] Apr, Acute non-recurrent maxillary sinusitis J01.00 and Gastroesophageal reflux disease with esophagitis K21.0 [facility] [id number] [place] [phone] Mar, Dental examination Z01.20 [facility] [address] [id number] Feb, Dental examination Z01.20 [facility] [id number] [place] [phone] Feb, Encounter to establish care Z76.89 ; Essential hypertension I10 ; Gastritis K29.70 ; Anxiety disorder, unspecified F41.9 and Coccydynia M53.3 [facility] [id number] [place] [phone] Jan, [facility] [address] [phone] 14 Jan, 2016 [place] [id number] [place] [phone] 07 Jan, 2016 Dental examination Z01.20 [place] [id number] [place] [phone] 26 Sep, 2015 [place] [address] [phone] Sep, [place] [address] [phone] Aug, [facility] [address] [address] Aug, Depression F32.9 [place] [address] [address] Aug, Anxiety disorder, unspecified F41.9 ; Bipolar disorder, current episode manic severe with psychotic features F31.2 and Depressed F32.9 [place] [id number] [place] [phone] Aug, [place] [address] [phone] Aug, Bipolar disorder, current episode manic severe with psychotic features F31.2 ; Anxiety disorder, unspecified F41.9 ; Anxiety F41.9 ; Bipolar 1 disorder with moderate bassam F31.12 and Substance addiction F19.20 [place] [id number] [place] [phone] 08 Aug, 2015 Bipolar 1 disorder with moderate bassam F31.12 ; 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 and Paranoid state, drug-induced F19.950 [place] [address] [address] 08 Aug, 2015 Essential hypertension I10 ; Encounter for immunization Z23 ; Mixed dyslipidemia E78.2 and Gastritis K29.70 [place] [address] [address] Aug, Major depression F32.9 ; Substance addiction F19.20 and Generalized anxiety disorder F41.1 [place] [id number] [place] [phone] Jul, Paranoid state, drug-induced F19.950 ; Major depression, recurrent F33.9 and Generalized anxiety disorder F41.1 [place] [id number] [place] [phone] Jul, Essential hypertension I10 [facility] [id number] [place] [phone] Jul, Hypertension I10 [place] [id number] [place] [phone] Jul, Anxiety disorder, unspecified F41.9 ; 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 ; Generalized anxiety disorder F41.1 ; Acute stress reaction F43.0 ; Major depressive disorder, single episode with psychotic features with anxious distress F32.3 and Bipolar I disorder, mild, current or most recent episode depressed, with psychotic features, with anxious distress F31.31 [place] [id number] [place] [phone] Jul, Depression, major, recurrent, severe with psychosis F33.3 and Paranoid F22 [place] [id number] [place] [phone] Jul, Essential hypertension I10 ; Anxiety F41.9 and Bipolar 1 disorder with moderate bassam F31.12 [facility] [id number] [place] [phone] Jul, Bipolar disorder, current episode manic severe with psychotic features F31.2 and Anxiety disorder, unspecified F41.9 [facility] [id number] [place] [phone] Nov, [facility] [id number] [place] [phone] May, [place] [address] [facility] [id number] [address] May, [facility] [address] [facility] [id number] [address] May, [facility] [address] [id number] [address] Jun, [facility] [address] [facility] [id number], [place] [address] Jun, [facility] [address] [facility] [id number], [place] [address] Mar, IMMUNIZATIONS No Known Immunizations SOCIAL HISTORY Never Assessed REASON FOR VISIT PLAN OF CARE VITAL SIGNS MEDICATIONS Unknown Medications RESULTS No Results PROCEDURES No Known procedures INSTRUCTIONS MEDICATIONS ADMINISTERED No Known Medications MEDICAL (GENERAL) HISTORY Type Description Date Medical History Anxiety disorder, unspecified Medical History Essential (primary) hypertension Medical History Hyperlipidemia Medical History Left ventricular hypertrophy Medical History Major Depressive Disorder Medical History Brief Psychotic Episode Surgical History appendectomy Surgical History gall bladder removal Surgical History vasectomy Hospitalization History Surgery Hospitalization History Gastritis
--- OUTSIDE RECORDS SUMMARY | 2019-04-03 19:02 | XMS REPORT | Continuity of Care Document ---
Author Organization Unknown Address Unknown Phone Unavailable Allergies Active Description Code Type Severity Reaction Onset Reported/Identified Relationship to Patient Clinical Status Yes NKANo Known Allergies NKA Miscellaneous Allergy Unknown N/A 10/21/2006 Yes latex [id number] Drug Allergy Unknown N/A 10/07/2018 Medications There is no data. Problems Date Dx Coded Attending Type Code Diagnosis Diagnosed By 08/05/2015 SANDRA WOOD MD, Ot F12.10 CANNABIS ABUSE, UNCOMPLICATED 08/05/2015 SANDRA WOOD MD, Ot F17.211 NICOTINE DEPENDENCE, CIGARETTES, IN RADAMES 08/05/2015 SANDRA WOOD MD, Ot F41.9 ANXIETY DISORDER, UNSPECIFIED 08/05/2015 SANDRA WOOD MD, Ot I10 ESSENTIAL (PRIMARY) HYPERTENSION 08/09/2015 RHETT TOMLINSON DO Ot F12.10 CANNABIS ABUSE, UNCOMPLICATED 08/09/2015 RHETT TOMLINSON DO Ot I10 ESSENTIAL (PRIMARY) HYPERTENSION 08/09/2015 RHETT TOMLINSON DO Ot R55 SYNCOPE AND COLLAPSE 08/09/2015 RHETT TOMLINSON DO Ot Z63.8 OTHER SPECIFIED PROBLEMS RELATED TO PRIM 08/09/2015 RHETT TOMLINSON DO, Ot Z79.899 OTHER PROJECT MANAGEMENT SPECIALIST (CURRENT) DRUG THERAPY 09/25/2016 BREANNE SWANSON APRN [...] 09/25/2016 BREANNE SWANSON APRN Ot Z79.899 OTHER PROJECT MANAGEMENT SPECIALIST (CURRENT) DRUG THERAPY 09/26/2016 BREANNE SWANSON APRN Ot F12.10 CANNABIS ABUSE, UNCOMPLICATED 09/26/2016 BREANNE SWANSON APRN Ot F41.9 ANXIETY DISORDER, UNSPECIFIED 09/26/2016 BREANNE SWANSON APRN Ot I10 ESSENTIAL (PRIMARY) HYPERTENSION 09/26/2016 BREANNE SWANSON APRN Ot M79.661 PAIN IN RIGHT LOWER LEG 09/26/2016 BREANNE SWANSON APRN Ot R11.2 NAUSEA WITH VOMITING, UNSPECIFIED 09/26/2016 BREANNE SWANSON APRN Ot R19.7 DIARRHEA, UNSPECIFIED 09/26/2016 BREANNE SWANSON APRN Ot Z79.899 OTHER CORRECTION (CURRENT) DRUG THERAPY 09/27/2016 BRYAN ATKINSON MD Ot F12.10 CANNABIS ABUSE, UNCOMPLICATED 09/27/2016 BRYAN ATKINSON MD Ot S83.91XA SPRAIN OF UNSPECIFIED SITE OF RIGHT KNEE 09/27/2016 BRYAN ATKINSON MD Ot S89.91XA UNSPECIFIED INJURY OF RIGHT LOWER LEG, I 09/27/2016 BRYAN ATKINSON MD Ot X58.XXXA EXPOSURE TO OTHER SPECIFIED FACTORS, INI 09/27/2016 BRYAN ATKINSON MD Ot Y92.39 [address] [facility] [address] [facility] 09/27/2016 BRYAN ATKINSON MD Ot Y99.8 OTHER EXTERNAL CAUSE STATUS 09/27/2016 BRYAN ATKINSON MD Ot Z87.891 PERSONAL HISTORY OF NICOTINE DEPENDENCE 10/17/2016 BREANNE SWANSON APRN Ot F12.10 CANNABIS ABUSE, UNCOMPLICATED 10/17/2016 BREANNE SWANSON APRN Ot F41.9 ANXIETY DISORDER, UNSPECIFIED 10/17/2016 BREANNE SWANSON APRN Ot I10 ESSENTIAL (PRIMARY) HYPERTENSION 10/17/2016 BREANNE SWANSON APRN Ot M79.661 PAIN IN RIGHT LOWER LEG 10/17/2016 BREANNE SWANSON APRN Ot R11.2 NAUSEA WITH VOMITING, UNSPECIFIED 10/17/2016 BREANNE SWANSON APRN Ot R19.7 DIARRHEA, UNSPECIFIED 10/17/2016 BREANNE SWANSON APRN Ot Z79.899 OTHER PROJECT MANAGEMENT SPECIALIST (CURRENT) DRUG THERAPY 04/13/2017 SELVIN ZAPATA, AUBREY Greenfield Ot F32.9 MAJOR DEPRESSIVE DISORDER, SINGLE EPISOD 04/13/2017 AUBREY MONTALVO MD Ot F41.9 ANXIETY DISORDER, UNSPECIFIED 04/13/2017 AUBREY MONTALVO MD Ot I10 ESSENTIAL (PRIMARY) HYPERTENSION 04/13/2017 AUBREY MONTALVO MD Ot R07.2 PRECORDIAL PAIN 04/13/2017 AUBREY MONTALVO MD Ot Z90.49 ACQUIRED ABSENCE OF OTHER SPECIFIED PART 01/21/2018 NASHAUGUSTO DIGGS JOSE RAMON Ot F41.9 ANXIETY DISORDER, UNSPECIFIED 01/21/2018 AUGUSTO CAO CALIBRATION SPECIALIST Ot I10 ESSENTIAL (PRIMARY) HYPERTENSION 01/21/2018 AUGUSTO CAO CALIBRATION SPECIALIST Ot K21.9 GASTRO-ESOPHAGEAL REFLUX DISEASE WITHOUT 02/25/2018 NASHAUGUSTO DIGGS JOSE RAMON Ot F41.9 ANXIETY DISORDER, UNSPECIFIED 02/25/2018 NASHAUGUSTO CALIBRATION SPECIALIST Ot I10 ESSENTIAL (PRIMARY) HYPERTENSION 02/25/2018 AUGUSTO CAO JOSE RAMON Ot K21.9 GASTRO-ESOPHAGEAL REFLUX DISEASE WITHOUT 03/22/2018 AUBREY MONTALVO MD Ot F12.10 CANNABIS ABUSE, UNCOMPLICATED 03/22/2018 AUBREY MONTALVO MD Ot F32.9 MAJOR DEPRESSIVE DISORDER, SINGLE EPISOD 03/22/2018 AUBREY MONTALVO MD Ot F41.0 PANIC DISORDER [EPISODIC PAROXYSMAL ANXI 03/22/2018 AUBREY MONTALVO MD Ot I10 ESSENTIAL (PRIMARY) HYPERTENSION 03/22/2018 AUBREY MONTALVO MD Ot K21.9 GASTRO-ESOPHAGEAL REFLUX DISEASE WITHOUT 03/22/2018 AUBREY MONTALVO MD Ot R07.81 PLEURODYNIA 03/22/2018 AUBREY MONTALVO MD Ot Z87.891 PERSONAL HISTORY OF NICOTINE DEPENDENCE 03/22/2018 AUBREY MONTALVO MD Ot Z90.89 ACQUIRED ABSENCE OF OTHER ORGANS 03/23/2018 AUBREY MONTALVO MD Ot F12.10 CANNABIS ABUSE, UNCOMPLICATED 03/23/2018 AUBREY MONTALVO MD Ot F32.9 MAJOR DEPRESSIVE DISORDER, SINGLE EPISOD 03/23/2018 AUBREY MONTALVO MD Ot F41.0 PANIC DISORDER [EPISODIC PAROXYSMAL ANXI 03/23/2018 AUBREY MONTALVO MD Ot I10 ESSENTIAL (PRIMARY) HYPERTENSION 03/23/2018 SELVIN MD, AUBREY J Ot K21.9 GASTRO-ESOPHAGEAL REFLUX DISEASE WITHOUT 03/23/2018 SELVIN ZAPATA, AUBREY [place] Ot R07.81 PLEURODYNIA 03/23/2018 SELVIN ZAPATA, AUBREY [place] Ot Z87.891 PERSONAL HISTORY OF NICOTINE DEPENDENCE 03/23/2018 SLEVIN ZAPATA, AUBREY [place] Ot Z90.89 ACQUIRED ABSENCE OF OTHER ORGANS 04/13/2018 CAROLINE ZAPATA, LEA Bangura Ot Z01.818 ENCOUNTER FOR OTHER PREPROCEDURAL EXAMIN 09/15/2018 NASH AUGUSTO CALIBRATION SPECIALIST Ot F41.9 ANXIETY DISORDER, UNSPECIFIED 09/15/2018 AUGUSTO CAO CALIBRATION SPECIALIST Ot I10 ESSENTIAL (PRIMARY) HYPERTENSION 09/15/2018 AUGUSTO CAO CALIBRATION SPECIALIST Ot K21.9 GASTRO-ESOPHAGEAL REFLUX DISEASE WITHOUT 09/15/2018 CAROLINE ZAPATA, LEA Bangura Ot Z01.818 ENCOUNTER FOR OTHER PREPROCEDURAL EXAMIN 09/15/2018 SANDAR WOOD MD Ot F12.90 CANNABIS USE, UNSPECIFIED, UNCOMPLICATED 09/15/2018 SANDRA WOOD MD Ot F17.210 NICOTINE DEPENDENCE, CIGARETTES, UNCOMPL 09/15/2018 SANDRA WOOD MD Ot F17.290 NICOTINE DEPENDENCE, OTHER TOBACCO PRODU 09/15/2018 SANDRA WOOD MD Ot F32.9 MAJOR DEPRESSIVE DISORDER, SINGLE EPISOD 09/15/2018 SANDRA WOOD MD Ot F41.9 ANXIETY DISORDER, UNSPECIFIED 09/15/2018 SANDRA WOOD MD Ot I10 ESSENTIAL (PRIMARY) HYPERTENSION 09/15/2018 SANDRA WOOD MD Ot R00.0 TACHYCARDIA, UNSPECIFIED 09/15/2018 SANDRA WOOD MD Ot R10.30 LOWER ABDOMINAL PAIN, UNSPECIFIED 09/15/2018 SANDRA WOOD MD Ot Z90.49 ACQUIRED ABSENCE OF OTHER SPECIFIED PART 09/15/2018 SANDRA WOOD MD Ot Z98.890 OTHER SPECIFIED POSTPROCEDURAL STATES 09/17/2018 SANDRA WOOD MD Ot F12.90 CANNABIS USE, UNSPECIFIED, UNCOMPLICATED 09/17/2018 SANDRA OWOD MD Ot F17.210 NICOTINE DEPENDENCE, CIGARETTES, UNCOMPL 09/17/2018 SANDRA WOOD MD Ot F17.290 NICOTINE DEPENDENCE, OTHER TOBACCO PRODU 09/17/2018 SANDRA WOOD MD Ot F32.9 MAJOR DEPRESSIVE DISORDER, SINGLE EPISOD 09/17/2018 SANDRA WOOD MD Ot F41.9 ANXIETY DISORDER, UNSPECIFIED 09/17/2018 SANDRA WOOD MD Ot I10 ESSENTIAL (PRIMARY) HYPERTENSION 09/17/2018 SANDRA WOOD MD Ot R00.0 TACHYCARDIA, UNSPECIFIED 09/17/2018 SANDRA WOOD MD Ot R10.30 LOWER ABDOMINAL PAIN, UNSPECIFIED 09/17/2018 SANDRA WOOD MD Ot Z90.49 ACQUIRED ABSENCE OF OTHER SPECIFIED PART 09/17/2018 SANDRA WOOD MD Ot Z98.890 OTHER SPECIFIED POSTPROCEDURAL STATES 10/07/2018 PAM NUÑEZ MD Ot F12.10 CANNABIS ABUSE, UNCOMPLICATED 10/07/2018 PAM NUÑEZ MD Ot F32.9 MAJOR DEPRESSIVE DISORDER, SINGLE EPISOD 10/07/2018 PAM NUÑEZ MD Ot F41.9 ANXIETY DISORDER, UNSPECIFIED 10/07/2018 PAM NUÑEZ MD Ot I10 ESSENTIAL (PRIMARY) HYPERTENSION 10/07/2018 PAM NUÑEZ MD Ot R07.89 OTHER CHEST PAIN 10/07/2018 PAM UNÑEZ MD Ot Z87.891 PERSONAL HISTORY OF NICOTINE DEPENDENCE 10/07/2018 PAM NUÑEZ MD Ot Z90.49 ACQUIRED ABSENCE OF OTHER SPECIFIED PART 10/07/2018 PAM NUÑEZ MD Ot Z91.040 LATEX ALLERGY STATUS 10/11/2018 PAM NUÑEZ MD Ot F12.10 CANNABIS ABUSE, UNCOMPLICATED 10/11/2018 PAM NUEÑZ MD Ot F32.9 MAJOR DEPRESSIVE DISORDER, SINGLE EPISOD 10/11/2018 PAM NUÑEZ MD Ot F41.9 ANXIETY DISORDER, UNSPECIFIED 10/11/2018 PAM NUÑEZ MD Ot I10 ESSENTIAL (PRIMARY) HYPERTENSION 10/11/2018 PAM NUÑEZ MD Ot R07.89 OTHER CHEST PAIN 10/11/2018 PAM NUÑEZ MD Ot Z87.891 PERSONAL HISTORY OF NICOTINE DEPENDENCE 10/11/2018 PAM NUÑEZ MD Ot Z90.49 ACQUIRED ABSENCE OF OTHER SPECIFIED PART 10/11/2018 SAVANNAH ZAPATA, PAM Ruiz Ot Z91.040 LATEX ALLERGY STATUS 11/04/2018 BETHANY ZAPATA FACC, ALI FACP CCDS Ot E66.8 OTHER OBESITY 11/04/2018 BETHANY ZAPATA FACC, ALI FACP CCDS Ot R00.2 PALPITATIONS 11/04/2018 BETHANY MURRAYC, ALI FACP CCDS Ot R07.89 OTHER CHEST PAIN 11/08/2018 BETHANY ZAPATA FACC, ALI FACP CCDS Ot E66.8 OTHER OBESITY 11/08/2018 BETHANY ZAPATA FACC, ALI FACP CCDS Ot R00.2 PALPITATIONS 11/08/2018 BETHANY ZAPATA FACC, ALI FACP CCDS Ot R07.89 OTHER CHEST PAIN 11/09/2018 AUGUSTO CAO Ot F41.9 ANXIETY DISORDER, UNSPECIFIED 11/09/2018 AUGUSTO CAO Ot I10 ESSENTIAL (PRIMARY) HYPERTENSION 11/09/2018 AUGUSTO CAO Ot K21.9 GASTRO-ESOPHAGEAL REFLUX DISEASE WITHOUT 11/09/2018 CAROLINE ZAPATA, LEA Bangura Ot Z01.818 ENCOUNTER FOR OTHER PREPROCEDURAL EXAMIN 11/09/2018 BETHANY ZAPATA FACC, ALI FACP CCDS Ot E66.8 OTHER OBESITY 11/09/2018 BETHANY ZAPATA FACC, ALI FACP CCDS Ot R00.2 PALPITATIONS 11/09/2018 BETHANY ZAPATA FACC, ALI FACP CCDS Ot R07.89 OTHER CHEST PAIN 11/17/2018 BETHANY MURRAYC, ALI FACP CCDS Ot E66.8 OTHER OBESITY 11/17/2018 BETHANY MURRAYC, ALI FACP CCDS Ot R00.2 PALPITATIONS 11/17/2018 BETHANY ZAPATA FACC, ALI FACP CCDS Ot R07.89 OTHER CHEST PAIN 11/19/2018 BETHANY MURRAYC, ALI FACP CCDS Ot E66.8 OTHER OBESITY 11/19/2018 BETHANY MURRAYC, ALI FACP CCDS Ot R00.2 PALPITATIONS 11/19/2018 BETHANY ZAPATA FACC, ALI FACP CCDS Ot R07.89 OTHER CHEST PAIN 11/21/2018 BETHANY MURRAYC, ALI FACP CCDS Ot E66.8 OTHER OBESITY 11/21/2018 BETHANY MD FACC, ALI FACP CCDS Ot R00.2 PALPITATIONS 11/21/2018 BETHANY ZAPATA FACC, ALI FACP CCDS Ot R07.89 OTHER CHEST PAIN 11/22/2018 BETHANY MD FACC, ALI FACP CCDS Ot E66.8 OTHER OBESITY 11/22/2018 BETHANY MD FACC, ALI FACP CCDS Ot I11.9 HYPERTENSIVE HEART DISEASE WITHOUT HEART 11/22/2018 BETHANY MD FACC, ALI FACP CCDS Ot R00.2 PALPITATIONS 11/22/2018 BETHANY MD FACC, ALI FACP CCDS Ot R07.89 OTHER CHEST PAIN 11/22/2018 BETHANY MD FACC, ALI FACP CCDS Ot E66.8 OTHER OBESITY 11/22/2018 BETHANY ZAPATA FACC, ALI FACP CCDS Ot I11.9 HYPERTENSIVE HEART DISEASE WITHOUT HEART 11/22/2018 BETHANY MD FACC, ALI FACP CCDS Ot R00.2 PALPITATIONS 11/22/2018 BETHANY ZAPATA FACC, ALI FACP CCDS Ot R07.89 OTHER CHEST PAIN 12/08/2018 BETHANY ZAPATA [facility], ALI FACP CCDS Ot E66.8 OTHER OBESITY 12/08/2018 BETHANY ZAPATA FAC, ALI FACP CCDS Ot R00.2 PALPITATIONS 12/08/2018 BETHANY ZAPATA FAC, ALI FACP CCDS Ot R07.89 OTHER CHEST PAIN 12/10/2018 BETHANY ZAPATA FACC, ALI FACP CCDS Ot E66.8 OTHER OBESITY 12/10/2018 BETHANY ZAPATA FAC, ALI FACP CCDS Ot I11.9 HYPERTENSIVE HEART DISEASE WITHOUT HEART 12/10/2018 BETHANY ZAPATA FAC, ALI FACP CCDS Ot R00.2 PALPITATIONS 12/10/2018 BETHANY ZAPATA [facility], ALI FACP CCDS Ot R07.89 OTHER CHEST PAIN Procedures There is no data. Results Test [...] Automated erythrocyte mean corpuscular hemoglobin concentration measurement (mass/volume) 37 g/dL 32-36 Automated erythrocyte distribution width ratio 12.9 % 10.0- 14.5 Automated blood platelet count (count/volume) 227 10*3/uL [...] Blood monocytes automated count (number/volume) 0.4 10*3 0.0- 1.0 Automated eosinophil count 0.0 10*3/uL 0.0-0.3 Automated blood basophil count (count/volume) 0.0 10*3/uL 0.0-0.1 Fibrin D-dimer FEU measurement in platelet poor plasma (mass/volume) - 09/25/16 16:50 Fibrin D-dimer FEU measurement in platelet [...] Serum or plasma aspartate aminotransferase measurement (enzymatic activity/volume) 19 U/L 5-34 Serum or plasma alanine aminotransferase measurement (enzymatic activity/volume) 18 U/L 0-55 Serum or plasma protein measurement (mass/volume) 7.0 g/dL 6.4-8.2 Serum or plasma albumin measurement (mass/volume) 4.2 g/dL 3.2-4.5 Serum or plasma troponin i.cardiac measurement (mass/volume) - 09/25/16 16:50 Serum or plasma troponin i.cardiac measurement (mass/volume) < ng/mL <0.30 Complete blood count (CBC) with automated [...] Automated erythrocyte mean corpuscular hemoglobin concentration measurement (mass/volume) 36 g/dL 32-36 Automated erythrocyte distribution width ratio 12.8 % 10.0- 14.5 Automated blood platelet count (count/volume) 218 10*3/uL [...] Blood monocytes automated count (number/volume) 0.5 10*3 0.0- 1.0 Automated eosinophil count 0.1 10*3/uL 0.0-0.3 Automated [...] Serum or plasma aspartate aminotransferase measurement (enzymatic activity/volume) 26 U/L 5-34 Serum or plasma alanine aminotransferase measurement (enzymatic activity/volume) 26 U/L 0-55 Serum or plasma protein measurement (mass/volume) 7.0 g/dL 6.4-8.2 Serum or plasma albumin measurement (mass/volume) 4.3 g/dL 3.2-4.5 Magnesium - 04/13/17 00:46 Magnesium 2.3 mg/dL 1.8-2.4 Serum or plasma troponin i.cardiac measurement (mass/volume) - 04/13/17 00:46 Serum or plasma troponin i.cardiac measurement (mass/volume) < ng/mL <0.30 Complete blood count (CBC) with automated [...] Automated erythrocyte mean corpuscular hemoglobin concentration measurement (mass/volume) 35 g/dL 32-36 Automated erythrocyte distribution width ratio 13.3 % 10.0- 14.5 Automated blood platelet count (count/volume) 193 10*3/uL [...] Blood monocytes automated count (number/volume) 0.4 10*3 0.0- 1.0 Automated eosinophil count 0.2 10*3/uL 0.0-0.3 Automated [...] Serum or plasma aspartate aminotransferase measurement (enzymatic activity/volume) 23 U/L 5-34 Serum or plasma alanine aminotransferase measurement (enzymatic activity/volume) 24 U/L 0-55 Serum or plasma protein measurement (mass/volume) 6.6 g/dL 6.4-8.2 Serum or plasma albumin measurement (mass/volume) 4.0 g/dL 3.2-4.5 Magnesium - 01/20/18 10:43 Magnesium 2.1 mg/dL 1.8-2.4 Lipid 1996 panel - 01/20/18 10:43 Serum or plasma triglyceride measurement (mass/volume) 190 mg/dL <150 Serum or plasma cholesterol measurement (mass/volume) 180 mg/dL < 200 Serum or plasma cholesterol in HDL measurement (mass/volume) 33 mg/dL 40-60 Cholesterol in LDL [mass/volume] in serum or plasma by direct assay 126 mg/dL 1-129 Serum or plasma cholesterol in VLDL measurement (mass/volume) 38 mg/dL 5-40 THYROID STIMULATING HORMONE - 01/20/18 10:43 [...] Automated erythrocyte mean corpuscular hemoglobin concentration measurement (mass/volume) 36 g/dL 32-36 Automated erythrocyte distribution width ratio 13.0 % 10.0- 14.5 Automated blood platelet count (count/volume) 255 10*3/uL [...] Blood monocytes automated count (number/volume) 0.6 10*3 0.0- 1.0 Automated eosinophil count 0.3 10*3/uL 0.0-0.3 Automated [...] Serum or plasma aspartate aminotransferase measurement (enzymatic activity/volume) 22 U/L 5-34 Serum or plasma alanine aminotransferase measurement (enzymatic activity/volume) 16 U/L 0-55 Serum or plasma protein measurement (mass/volume) 7.3 g/dL 6.4-8.2 Serum or plasma albumin measurement (mass/volume) 4.5 g/dL 3.2-4.5 Magnesium - 03/21/18 23:15 Magnesium 2.3 mg/dL 1.8-2.4 Serum or plasma troponin i.cardiac measurement (mass/volume) - 03/21/18 23:15 Serum or plasma troponin i.cardiac measurement (mass/volume) < ng/mL <0.30 Myoglobin, serum - 03/21/18 23:15 Myoglobin, serum 61.2 ng/mL 10.0-92.0 Lipase - 03/21/18 23:15 Lipase 25 U/L 8-78 Bacterial throat culture - 03/21/18 23:15 Bacterial throat culture [facility] Complete blood count (CBC) with automated white blood cell (WBC) differential - 09/15/18 14:30 Blood leukocytes automated count (number/volume) 6.5 10*3/uL 4.3-11.0 Blood erythrocytes automated count (number/volume) 5.41 10*6/uL 4.35-5.85 Venous blood hemoglobin measurement (mass/volume) 16.0 g/dL 13.3-17.7 Blood hematocrit (volume fraction) 44 % 40-54 Automated erythrocyte mean corpuscular volume 81 [foz_us] 80-99 Automated erythrocyte mean corpuscular hemoglobin (mass per erythrocyte) 30 pg 25-34 Automated erythrocyte mean corpuscular hemoglobin concentration measurement (mass/volume) 36 g/dL 32-36 Automated erythrocyte distribution width ratio 13.0 % 10.0- 14.5 Automated blood platelet count (count/volume) 256 10*3/uL 130-400 Automated blood platelet mean volume measurement 9.9 [foz_us] 7.4-10.4 Automated blood neutrophils/100 leukocytes 58 % 42-75 Automated blood lymphocytes/100 leukocytes 33 % 12-44 Blood monocytes/100 leukocytes 6 % 0-12 Automated blood eosinophils/100 leukocytes 2 % 0-10 Automated blood basophils/100 leukocytes 1 % 0-10 Blood neutrophils automated count (number/volume) 3.7 10*3 1.8-7.8 Blood lymphocytes automated count (number/volume) 2.1 10*3 1.0-4.0 Blood monocytes automated count (number/volume) 0.4 10*3 0.0- 1.0 Automated eosinophil count 0.2 10*3/uL 0.0-0.3 Automated blood basophil count (count/volume) 0.0 10*3/uL 0.0-0.1 Comprehensive metabolic panel - 09/15/18 14:30 Serum or plasma sodium measurement (moles/volume) 138 mmol/L 135-145 Serum or plasma potassium measurement (moles/volume) 3.8 mmol/L 3.6-5.0 Serum or plasma chloride measurement (moles/volume) 104 mmol/L 98-107 Carbon dioxide 24 mmol/L 21-32 Serum or plasma anion gap determination (moles/volume) 10 mmol/L 5-14 Serum or plasma urea nitrogen measurement (mass/volume) 13 mg/dL 7-18 Serum or plasma creatinine measurement (mass/volume) 1.21 mg/dL 0.60-1.30 Serum or plasma urea nitrogen/creatinine mass ratio 11 NRG Serum or plasma creatinine measurement with calculation of estimated glomerular filtration rate > NRG Serum or plasma glucose measurement (mass/volume) 147 mg/dL 70-105 Serum or plasma calcium measurement (mass/volume) 9.6 mg/dL 8.5-10.1 Serum or plasma total bilirubin measurement (mass/volume) 0.7 mg/dL 0.1-1.0 Serum or plasma alkaline phosphatase measurement (enzymatic activity/volume) 77 U/L 40-136 Serum or plasma aspartate aminotransferase measurement (enzymatic activity/volume) 21 U/L 5-34 Serum or plasma alanine aminotransferase measurement (enzymatic activity/volume) 19 U/L 0-55 Serum or plasma protein measurement (mass/volume) 7.6 g/dL 6.4-8.2 Serum or plasma albumin measurement (mass/volume) 4.5 g/dL 3.2-4.5 CALCIUM CORRECTED 9.2 mg/dL 8.5-10.1 Magnesium - 09/15/18 14:30 Magnesium 2.3 mg/dL 1.8-2.4 Fibrin D-dimer FEU measurement in platelet poor plasma (mass/volume) - 09/15/18 14:30 Fibrin D-dimer FEU measurement in platelet poor plasma (mass/volume) <=ug/mL 0.00-0.49 Serum or plasma troponin i.cardiac measurement (mass/volume) - 09/15/18 14:30 Serum or plasma troponin i.cardiac measurement (mass/volume) < ng/mL <0.028 THYROID STIMULATING HORMONE - 09/15/18 14:30 THYROID STIMULATING HORMONE 0.55 u[iU]/mL 0.35-4.94 Complete urinalysis with reflex to culture - 09/15/18 15:10 Urine color determination YELLOW NRG Urine clarity determination CLEAR NRG Urine pH measurement by test strip 6 5-9 Specific gravity of urine by test strip 1.010 1.016-1.022 Urine protein assay by test strip, semi-quantitative NEGATIVE NEGATIVE Urine glucose detection by automated test strip NEGATIVE NEGATIVE Erythrocytes detection in urine sediment by light microscopy NEGATIVE NEGATIVE Urine ketones detection by automated test strip NEGATIVE NEGATIVE Urine nitrite detection by test strip NEGATIVE NEGATIVE Urine total bilirubin detection by test strip NEGATIVE NEGATIVE Urine urobilinogen measurement by automated test strip (mass/volume) NORMAL NORMAL Urine leukocyte esterase detection by dipstick NEGATIVE NEGATIVE Automated urine sediment erythrocyte count by microscopy (number/high power field) RARE NRG Automated urine sediment leukocyte count by microscopy (number/high power field) RARE NRG Bacteria detection in urine sediment by light microscopy NEGATIVE NRG Crystals detection in urine sediment by light microscopy NONE NRG Casts detection in urine sediment by light microscopy NONE NRG Mucus detection in urine sediment by light microscopy NEGATIVE NRG Complete urinalysis with reflex to culture NO NRG Complete blood count (CBC) with automated white blood cell (WBC) differential - 10/07/18 09:49 Blood leukocytes automated count (number/volume) 6.9 10*3/uL 4.3-11.0 Blood erythrocytes automated count (number/volume) 5.64 10*6/uL 4.35-5.85 Venous blood hemoglobin measurement (mass/volume) 16.4 g/dL 13.3-17.7 Blood hematocrit (volume fraction) 46 % 40-54 Automated erythrocyte mean corpuscular volume 82 [foz_us] 80-99 Automated erythrocyte mean corpuscular hemoglobin (mass per erythrocyte) 29 pg 25-34 Automated erythrocyte mean corpuscular hemoglobin concentration measurement (mass/volume) 36 g/dL 32-36 Automated erythrocyte distribution width ratio 13.0 % 10.0- 14.5 Automated blood platelet count (count/volume) 213 10*3/uL 130-400 Automated blood platelet mean volume measurement 10.0 [foz_us] 7.4-10.4 Automated blood neutrophils/100 leukocytes 55 % 42-75 Automated blood lymphocytes/100 leukocytes 34 % 12-44 Blood monocytes/100 leukocytes 7 % 0-12 Automated blood eosinophils/100 leukocytes 2 % 0-10 Automated blood basophils/100 leukocytes 1 % 0-10 Blood neutrophils automated count (number/volume) 3.8 10*3 1.8-7.8 Blood lymphocytes automated count (number/volume) 2.4 10*3 1.0-4.0 Blood monocytes automated count (number/volume) 0.5 10*3 0.0- 1.0 Automated eosinophil count 0.2 10*3/uL 0.0-0.3 Automated blood basophil count (count/volume) 0.1 10*3/uL 0.0-0.1 Comprehensive metabolic panel - 10/07/18 09:49 Serum or plasma sodium measurement (moles/volume) 140 mmol/L 135-145 Serum or plasma potassium measurement (moles/volume) 3.6 mmol/L 3.6-5.0 Serum or plasma chloride measurement (moles/volume) 105 mmol/L 98-107 Carbon dioxide 26 mmol/L 21-32 Serum or plasma anion gap determination (moles/volume) 9 mmol/L 5-14 Serum or plasma urea nitrogen measurement (mass/volume) 13 mg/dL 7-18 Serum or plasma creatinine measurement (mass/volume) 0.96 mg/dL 0.60-1.30 Serum or plasma urea nitrogen/creatinine mass ratio 14 NRG Serum or plasma creatinine measurement with calculation of estimated glomerular filtration rate > NRG Serum or plasma glucose measurement (mass/volume) 96 mg/dL 70-105 Serum or plasma calcium measurement (mass/volume) 9.9 mg/dL 8.5-10.1 Serum or plasma total bilirubin measurement (mass/volume) 0.5 mg/dL 0.1-1.0 Serum or plasma alkaline phosphatase measurement (enzymatic activity/volume) 69 U/L 40-136 Serum or plasma aspartate aminotransferase measurement (enzymatic activity/volume) 21 U/L 5-34 Serum or plasma alanine aminotransferase measurement (enzymatic activity/volume) 20 U/L 0-55 Serum or plasma protein measurement (mass/volume) 7.6 g/dL 6.4-8.2 Serum or plasma albumin measurement (mass/volume) 4.5 g/dL 3.2-4.5 CALCIUM CORRECTED 9.5 mg/dL 8.5-10.1 Serum or plasma troponin i.cardiac measurement (mass/volume) - 10/07/18 09:49 Serum or plasma troponin i.cardiac measurement (mass/volume) < ng/mL <0.028 Urine drug screening test - 10/07/18 11:20 Urine phencyclidine detection by screening method NEGATIVE NEGATIVE Urine benzodiazepines detection by screening method NEGATIVE NEGATIVE Urine cocaine detection NEGATIVE NEGATIVE Urine amphetamines detection by screening method NEGATIVE NEGATIVE Urine methamphetamine detection by screening method NEGATIVE NEGATIVE Urine cannabinoids detection by screening method NEGATIVE NEGATIVE Urine opiates detection by screening method NEGATIVE NEGATIVE Urine barbiturates detection NEGATIVE NEGATIVE Screening urine tricyclic antidepressants detection NEGATIVE NEGATIVE Urine methadone detection by screening method NEGATIVE NEGATIVE Urine oxycodone detection NEGATIVE NEGATIVE Urine propoxyphene detection NEGATIVE NEGATIVE Encounters ACCT No. Visit Date/Time Discharge Status Pt. Type Provider Facility Loc./Unit Complaint [id number] 03/17/2019 13:40:00 03/17/2019 23:59:59 [facility] Outpatient CARMEN REN APRN [facility] [id number] 11/18/2018 11:31:00 11/18/2018 23:59:59 CLS Outpatient BETHANY ZAPATA FACTalita, ALI FACP CCDS [facility] LAB HTN [id number] 11/16/2018 11:40:00 11/16/2018 23:59:59 CLS Outpatient BETHANY ZAPATA FACC, ALI FACP CCDS [facility] CARD PALPITATIONS [id number] 11/02/2018 12:46:00 11/02/2018 23:59:59 CLS Outpatient BETHANY ZAPATA FACC, ALI FACP CCDS [facility] CARD PALPITATIONS [id number] 10/07/2018 09:35:00 10/07/2018 12:28:00 DIS Emergency PAM NUÑEZ MD [facility] ER CHEST PAIN [id number] 09/15/2018 13:57:00 09/15/2018 16:38:00 DIS Emergency SANDRA WOOD MD [facility] ER LOWER ABD PAIN;NAUSEA [id number] 04/12/2018 05:35:00 04/12/2018 23:59:59 CLS Outpatient CAROLINE ZAPATA, LEA Bangura [facility] PREOP EGD [id number] 03/21/2018 23:09:00 03/22/2018 00:19:00 DIS Emergency AUBREY MONTALVO MD [facility] ER CP [id number] 01/20/2018 10:14:00 01/20/2018 23:59:59 CLS Outpatient AUGUSTO CAO [facility] LAB GERD [id number] 04/12/2017 22:58:00 04/13/2017 01:49:00 DIS Emergency AUBREY MONTALVO MD [facility] ER AB PAIN FEELS LIKE CHEST IS BURNING [id number] 09/27/2016 13:28:00 09/27/2016 15:15:00 DIS Emergency BRYAN ATKINSON MD [facility] ER R KNEE PAIN [id number] 09/25/2016 16:16:00 09/25/2016 17:47:00 DIS Emergency BREANNE SWANSON APRN [facility] ER N,V,D [id number] 08/09/2015 17:53:00 08/09/2015 19:50:00 DIS Emergency RHETT TOMLINSON DO [facility] ER ELEVATED BLOOD PRESSURE [id number] 08/05/2015 18:49:00 08/05/2015 20:41:00 DIS Emergency SANDRA WOOD MD [facility] ER ANXIETY,DEPRESSION [id number] 04/13/2018 06:56:00 Document Registration
[2019-04-03] MEDS ORDERED: FAMOTIDINE 20MG/2ML IV (PEPCID) IV STA (19:19)
[2019-04-03] MEDS ORDERED: NS IV 1000 ML 1,000 ML IV STA (19:19)
[2019-04-03] MEDS ORDERED: ANTACID SUSP 30 ML UDC (MYLANTA) PO ONE (19:30)
[2019-04-03] MEDS ORDERED: LIDOCAINE 2% VISCOUS 15 ML UDC PO ONE (19:30)
[2019-04-03 19:32] LABS: BASOPHILS # (AUTO) 0.1 10^3/uL (0.0-0.1); BASOPHILS % (AUTO) 1 % (0-10); EOSINOPHILS # (AUTO) 0.3 10^3/uL (0.0-0.3); EOSINOPHILS % (AUTO) 5 % (0-10); HEMATOCRIT 46 % (40-54); HEMOGLOBIN 16.3 G/DL (13.3-17.7); LYMPHOCYTES # (AUTO) 2.6 X 10^3 (1.0-4.0); LYMPHOCYTES % (AUTO) 36 % (12-44); MEAN CORPUSCULAR HEMOGLOBIN 29 PG (25-34); MEAN CORPUSCULAR HGB CONC 36 G/DL (32-36); MEAN CORPUSCULAR VOLUME 82 FL (80-99); MEAN PLATELET VOLUME 10.6 FL (7.4-10.4); MONOCYTES # (AUTO) 0.5 X 10^3 (0.0-1.0); MONOCYTES % (AUTO) 6 % (0-12); NEUTROPHILS # (AUTO) 3.8 X 10^3 (1.8-7.8); NEUTROPHILS % (AUTO) 52 % (42-75); PLATELET COUNT 235 10^3/uL (130-400); RED CELL DISTRIBUTION WIDTH 12.6 % (10.0-14.5); WHITE BLOOD COUNT 7.3 10^3/uL (4.3-11.0)
[2019-04-03 19:44] LABS: ALANINE AMINOTRANSFERASE 21 U/L (0-55); ALBUMIN 4.6 GM/DL (3.2-4.5); ALKALINE PHOSPHATASE 84 U/L (40-136); BILIRUBIN,TOTAL 0.5 MG/DL (0.1-1.0); BUN/CREATININE RATIO 9; CALCIUM 10.1 MG/DL (8.5-10.1); CARBON DIOXIDE 21 MMOL/L (21-32); CHLORIDE 104 MMOL/L (98-107); CREATININE SERUM 1.24 MG/DL (0.60-1.30); GFR ESTIMATED > 60; GLUCOSE 102 MG/DL (70-105); MAGNESIUM 2.5 MG/DL (1.8-2.4); POTASSIUM 3.8 MMOL/L (3.6-5.0); SODIUM 139 MMOL/L (135-145); TOTAL PROTEIN 7.9 GM/DL (6.4-8.2)
[2019-04-03] MEDS ORDERED: PANTOPRAZOLE 40 MG (PROTONIX) VIAL IV ONE (20:00)
--- NOTE | 2019-04-03 20:04 | ED Abdominal Pain ---
General Chief Complaint: Abdominal/GI Problems Stated Complaint: STOMACH/CHEST PAIN X 1 WK Nursing Triage Note: PT PRESENTS FROM HOME AMBULATORY, STATES HE HAS BEEN EXPERIENCING ABDOMINAL PAIN WITH INDIGESTION FOR THE LAST WEEK THAT THE PT FEELS LIKE BECOMES INTERMITTENT CHEST PAIN. PT VERBALIZES EXTENSIVE HX OF ANXIETY AND A HX OF IBS. PT LOCALIZES ABDOMINAL PAIN TO THE UPPER QUADRANTS OF HIS ABDOMEN... DENIES SOB OR EXERTIONAL CHEST PAIN. Sepsis Screen: No Definite Risk Source of Information: Patient Exam Limitations: No Limitations History of Present Illness Date Seen by Provider: Apr 03, 2019 Time Seen by Provider: 19:42 Initial Comments Here with report of central abdominal pain that has been intermittent over the last week and radiating to the left side and left chest. Patient does have history of anxiety, especially about medical health and has been on medication for stomach acid production. He responds to increase that to Protonix last year but he was concerned about that so has not. He is still on omeprazole. He is worried about his pancreas. Also has history of mild LVH secondary to hypertension that is intermittent. Denies nausea or vomiting. Timing/Duration: 1 Week, Changing Over Time Severity/Quality: Moderate, Aching Location: RUQ, LUQ, Epigastric Radiation: Back, Chest Activities at Onset: None Modifying Factors: Worsens With Eating; Improves With Resting Associated Symptoms: Back Pain, Chest Pain; No Fever/Chills; Fatigue, Nausea/Vomiting; No Shortness of Air, No Weakness Allergies and Home Medications Allergies Coded Allergies: NKANo Known Allergies (Verified Allergy, Unknown, 10/21/06) latex (Verified Allergy, Unknown, 10/07/18) Home Medications Clonazepam 1 Mg Tablet, 1 MG PO TID, (Reported) Sucralfate 1 Gm Tablet, 1 GM PO QIDACHS Prescribed by: AUBREY MONTALVO on 03/22/18 0012 Patient Home Medication List Home Medication List Reviewed: Yes Review of Systems Review of Systems Constitutional: see HPI EENTM: No Symptoms Reported Respiratory: Denies Cough, Denies Shortness of Air, Denies Wheezing Cardiovascular: See HPI, Chest Pain; Denies Edema, Denies Irregular Heart Rate, Denies Lightheadedness Gastrointestinal: Abdominal Pain, Constipated, Nausea Genitourinary: No Symptoms Reported Musculoskeletal: see HPI Skin: no symptoms reported Psychiatric/Neurological: See HPI, Anxiety; Denies Headache, Denies Weakness All Other Systems Reviewed Negative Unless Noted: Yes Past Zjagkou-Rqdpry-Pbnnuo Hx Past Med/Social Hx: Reviewed Nursing Past Med/Soc Hx Patient Social History Alcohol Use: Denies Use Recreational Drug Use: No (hx of marijuana ) Drug of Choice: POT Type Used: Cigarettes, Electronic/Vapor Former Smoker, Quit: Oct 02, 2006 2nd Hand Smoke Exposure: No Recent Foreign Travel: No Contact w/Someone Who Travel: No Recent Infectious Disease Expo: No Recent Hopitalizations: No Immunizations Up To Date Tetanus Booster (TDap): Unknown PED Vaccines UTD: No Seasonal Allergies Seasonal Allergies: Yes Past Medical History Surgeries: Yes (X1 WISDOM TOOTH REMOVED,CUT FINGER REPAIRED) Appendectomy, Gallbladder Respiratory: No Cardiac: Yes Hypertension Neurological: No Reproductive Disorders: No Genitourinary: No Gastrointestinal: No Musculoskeletal: Yes Chronic Back Pain Endocrine: No HEENT: No Cancer: No Psychosocial: Yes Anxiety, Depression Integumentary: No Blood Disorders: No Family Medical History Reviewed Nursing Family Hx Physical Exam Vital Signs Vital Signs - First Documented 04/03/19 18:58 Temp 99.6 Pulse 111 Resp 18 B/P (MAP) 134/94 (107) Pulse Ox 99 O2 Delivery Room Air Capillary Refill : Less Than 3 Seconds Height/Weight/BMI Height: 6'0" Weight: 250lbs. oz. 113.677983eg; 40.68 BMI Method:Stated General Appearance: WD/WN, no apparent distress HEENT: PERRL/EOMI, pharynx normal Respiratory: lungs clear, normal breath sounds Cardiovascular: regular rate, rhythm, no murmur Gastrointestinal: non tender, soft Extremities: normal range of motion, non-tender, normal inspection, no pedal edema, no calf tenderness Back: normal inspection, no CVA tenderness, no vertebral tenderness Neurologic/Psychiatric: alert, oriented x 3 Skin: normal color, warm/dry Progress/Results/Core Measures Results/Orders Lab Results Laboratory Tests Test 04/03/19 19:08 04/03/19 20:17 Range/Units White Blood Count 7.3 4.3-11.0 10^3/uL Red Blood Count 5.59 4.35-5.85 10^6/uL Hemoglobin 16.3 13.3-17.7 G/DL Hematocrit 46 40-54 % Mean Corpuscular Volume 82 80-99 FL Mean Corpuscular Hemoglobin 29 25-34 PG Mean Corpuscular Hemoglobin Concent 36 32-36 G/DL Red Cell Distribution Width 12.6 10.0-14.5 % Platelet Count 235 130-400 10^3/uL Mean Platelet Volume 10.6 H 7.4-10.4 FL Neutrophils (%) (Auto) 52 42-75 % Lymphocytes (%) (Auto) 36 12-44 % Monocytes (%) (Auto) 6 0-12 % Eosinophils (%) (Auto) 5 0-10 % Basophils (%) (Auto) 1 0-10 % Neutrophils # (Auto) 3.8 1.8-7.8 X 10^3 Lymphocytes # (Auto) 2.6 1.0-4.0 X 10^3 Monocytes # (Auto) 0.5 0.0-1.0 X 10^3 Eosinophils # (Auto) 0.3 0.0-0.3 10^3/uL Basophils # (Auto) 0.1 0.0-0.1 10^3/uL Sodium Level 139 135-145 MMOL/L Potassium Level 3.8 3.6-5.0 MMOL/L Chloride Level 104 98-107 MMOL/L Carbon Dioxide Level 21 21-32 MMOL/L Anion Gap 14 5-14 MMOL/L Blood Urea Nitrogen 11 7-18 MG/DL Creatinine 1.24 0.60-1.30 MG/DL Estimat Glomerular Filtration Rate > 60 BUN/Creatinine Ratio 9 Glucose Level 102 70-105 MG/DL Calcium Level 10.1 8.5-10.1 MG/DL Corrected Calcium 8.5-10.1 MG/DL Magnesium Level 2.5 H 1.8-2.4 MG/DL Total Bilirubin 0.5 0.1-1.0 MG/DL Aspartate Amino Transf (AST/SGOT) 14 5-34 U/L Alanine Aminotransferase (ALT/SGPT) 21 0-55 U/L Alkaline Phosphatase 84 40-136 U/L Troponin I < 0.028 <0.028 NG/ML C-Reactive Protein High Sensitivity 0.23 0.00-0.50 MG/DL Total Protein 7.9 6.4-8.2 GM/DL Albumin 4.6 H 3.2-4.5 GM/DL Lipase 26 8-78 U/L Urine Color YELLOW Urine Clarity CLEAR Urine pH 6.5 5-9 Urine Specific [place] 1.010 L 1.016-1.022 Urine Protein NEGATIVE NEGATIVE Urine Glucose (UA) NEGATIVE NEGATIVE Urine Ketones NEGATIVE NEGATIVE Urine Nitrite NEGATIVE NEGATIVE Urine Bilirubin NEGATIVE NEGATIVE Urine Urobilinogen NORMAL NORMAL MG/DL Urine Leukocyte Esterase NEGATIVE NEGATIVE Urine RBC (Auto) NEGATIVE NEGATIVE Urine RBC NONE /HPF Urine WBC NONE /HPF Urine Squamous Epithelial Cells RARE /HPF Urine Crystals NONE /LPF Urine Bacteria NEGATIVE /HPF Urine Casts NONE /LPF Urine Mucus NEGATIVE /LPF Urine Culture Indicated NO My Orders Orders - SANDRA WOOD MD Cbc With Automated Diff (04/03/19 19:19) Comprehensive Metabolic Panel (04/03/19 19:19) Hs C Reactive Protein (04/03/19:19) Magnesium (04/03/19:19) Ua Culture If Indicated (04/03/19 19:19) Troponin I (04/03/19 19:19) Lidocaine 2% Viscous 15 Ml (Xylocaine Vi (04/03/19 19:30) Ns Iv 1000 Ml (Sodium Chloride 0.9%) (04/03/19 19:19) Antacid Suspension (Mylanta Suspension (04/03/19 19:30) Famotidine Injection (Pepcid Injection) (04/03/19 19:19) Ed Iv/Invasive Line Start (04/03/19 19:19) Ekg Tracing (04/03/19 19:19) Lipase (04/03/19 19:54) Pantoprazole Injection (Protonix Injecti (04/03/19 20:00) Medications Given in ED Current Medications Medications Dose Ordered Sig/Tamra Route Start Time Stop Time Status Last Admin Dose Admin Al Hydrox/Mg Hydrox/Simethicone 30 ml ONCE ONCE PO 04/03/19 19:30 04/03/19 19:31 DC 04/03/19 19:33 30 ML Lidocaine HCl 15 ml ONCE ONCE PO 04/03/19 19:30 04/03/19 19:31 DC 04/03/19 19:33 15 ML Pantoprazole 40 mg ONCE ONCE IV 04/03/19 20:00 04/03/19 20:01 DC 04/03/19 20:36 40 MG Vital Signs/I&O 04/03/19 18:58 Temp 99.6 Pulse 111 Resp 18 B/P (MAP) 134/94 (107) Pulse Ox 99 O2 Delivery Room Air Blood Pressure Mean: 107 Progress Progress Note : Progress Note Seen and evaluated. IV, labs, EKG, normal saline 1 L bolus, Pepcid 20 mg IV and Protonix 40 mg IV. Monitor patient. 2054: No acute findings. We did discuss him follow with his doctor to discuss Protonix and potentially a low-dose beta gita if indicated due to high blood pressure. He is 120s over 90s when resting and made get dual benefit from blood pressure agents and this was discussed with him. He will initiate his Protonix outpatient discussed this with his doctor as well. Discharge home return precautions. Patient verbalize understanding instructions and agreement with plan. Initial ECG Impression Date: Apr 03, 2019 Initial ECG Impression Time: 19:14 Initial ECG Rate: 103 Initial ECG Rhythm: S.Tach Comment Sinus tachycardia with normal axis. No evidence of ST elevation [place]. Similar to 10/07/18. Interpreted by me. Departure Impression Primary Impression: Upper abdominal pain Disposition: 01 HOME, SELF-CARE Condition: Improved Departure-Patient Inst. Decision time for Depature: 20:57 Referrals: ROSEANN KELLEY DO (PCP/Family) Primary Care Physician Patient Instructions: Acute Abdomen (Belly Pain), Adult (DC) Add. Discharge Instructions: All discharge instructions reviewed with patient and/or family. Voiced understanding. You should start your Protonix. Follow-up with your doctor and discuss the possibility of a blood pressure medicine such as propranolol or metoprolol. This may or may not be the right choice for you but you can discuss this with your doctor. Otherwise continue the medicines as prescribed. Return for worse pain, fever, vomiting, weakness, breathing problems or other concerns as needed. SANDRA WOOD MD Apr 03, 2019 20:03
[2019-04-03 20:21] LABS: BILIRUBIN,URINE NEGATIVE (NEGATIVE); CLARITY,URINE CLEAR; COLOR,URINE YELLOW; GLUCOSE, URINE (UA) NEGATIVE (NEGATIVE); KETONES,URINE NEGATIVE (NEGATIVE); LEUKOCYTE ESTERASE ,URINE NEGATIVE (NEGATIVE); NITRITE,URINE NEGATIVE (NEGATIVE); PH,URINE 6.5 (5-9); PROTEIN,URINE NEGATIVE (NEGATIVE); UROBILINOGEN,URINE NORMAL (NORMAL)
[2019-04-03 20:26] LABS: BACTERIA,URINE NEGATIVE /HPF; SQUAMOUS EPITHELIAL CELL,UR RARE /HPF
[2019-04-03 21:03] VITALS: BP 126/92
== END 2019-04-03 21:03 | disposition home or self-care (01) ==
LOC: EDUNIT# 18:55 → ER 18:56
DX: R10.13 Epigastric pain (principal); I10 Essential (primary) hypertension; F41.9 Anxiety disorder, unspecified; F32.9 Major depressive disorder, single episode, unspecified; Z77.22 Contact with and (suspected) exposure to environmental tobacco smoke (acute) (chronic); Z90.49 Acquired absence of other specified parts of digestive tract
CPT/HCPCS: 36415; 80053; 81000; 83690; 83735; 84484; 85025; 86141; 93005

== ENCOUNTER 2019-04-20 19:38 | Emergency (ER) | payer OTHER ==
[~2019-04-20] VITALS: Ht 182.9 cm; Wt 113.4 kg
--- NOTE | 2019-04-20 19:53 | ED Chest Pain ---
General Chief Complaint: Chest Pain Stated Complaint: CHEST PAIN History of Present Illness Date Seen by Provider: Apr 20, 2019 Time Seen by Provider: 19:50 Initial Comments 38-year-old male reports for chest pain that began at 1600 today. It started with an anxiety attack. He was recently started on Zoloft and his psychiatrist is considering stopping Klonopin. He was seen by his primary care doctor today and his blood pressure was 110/80. Timing/Duration: 1-3 hours Severity/Quality: mild Location: substernal Radiation: no radiation Prior CP/Workup: non-cardiac ASA po LEAD JAVA DEVELOPER ARCHITECT: No NTG SL LEAD JAVA DEVELOPER ARCHITECT: No Associated Symptoms: denies symptoms; No fatigue, No heartburn, No rash, No syncope Allergies and Home Medications Allergies Coded Allergies: NKANo Known Allergies (Verified Allergy, Unknown, 10/21/06) latex (Verified Allergy, Unknown, 10/07/18) Home Medications Clonazepam 1 Mg Tablet, 1 MG PO TID, (Reported) Sucralfate 1 Gm Tablet, 1 GM PO QIDACHS Prescribed by: AUBREY MONTALVO on 03/22/18 0012 Patient Home Medication List Home Medication List Reviewed: Yes Review of Systems Review of Systems Constitutional: no symptoms reported, see HPI Cardiovascular: See HPI, Chest Pain Psychiatric/Neurological: See HPI, Anxiety All Other Systems Reviewed Negative Unless Noted: Yes Past Jbwqlut-Rcvzgh-Zksuqq Hx Past Med/Social Hx: Reviewed Nursing Past Med/Soc Hx Patient Social History Alcohol Use: Denies Use Recreational Drug Use: Yes Drug of Choice: POT Type Used: Cigarettes, Electronic/Vapor Former Smoker, Quit: Oct 02, 2006 2nd Hand Smoke Exposure: No Recent Foreign Travel: No Contact w/Someone Who Travel: No Recent Hopitalizations: No Physical Abuse: No Sexual Abuse: No Mistreated: No Fear: No Immunizations Up To Date Tetanus Booster (TDap): Unknown PED Vaccines UTD: No Seasonal Allergies Seasonal Allergies: Yes Past Medical History Surgeries: Yes (X1 WISDOM TOOTH REMOVED,CUT FINGER REPAIRED) Appendectomy, Gallbladder Respiratory: No Cardiac: Yes Hypertension Neurological: No Reproductive Disorders: No Genitourinary: No Gastrointestinal: No Musculoskeletal: Yes Chronic Back Pain Endocrine: No HEENT: No Cancer: No Psychosocial: Yes Anxiety, Depression Integumentary: No Blood Disorders: No Physical Exam Vital Signs Vital Signs - First Documented 04/20/19 04/20/19 19:44 19:47 Temp 97.6 Pulse 101 Resp 18 B/P (MAP) 143/108 (120) Pulse Ox 99 O2 Delivery Room Air FiO2 99 Capillary Refill : Height, Weight, BMI Height: 6'0" Weight: 250lbs. oz. 113.650060ro; 40.68 BMI Method:Stated General Appearance: No Apparent Distress, WD/WN HEENT: PERRL/EOMI, TMs Normal, Normal ENT Inspection, Pharynx Normal Neck: Full Range of Motion, Normal Inspection, Non Tender, Supple Respiratory: Chest Non Tender, Lungs Clear, Normal Breath Sounds Cardiovascular: Regular Rate, Rhythm, No Murmur, Normal Peripheral Pulses Gastrointestinal: Normal Bowel Sounds, Non Tender, Soft Extremity: Normal Capillary Refill, Normal Inspection, Normal Range of Motion, Non Tender, No Pedal Edema Neurologic/Psychiatric: Alert, Oriented x3, No Motor/Sensory Deficits, Normal Mood/Affect Skin: Normal Color, Warm/Dry Lymphatic: No Adenopathy Progress/Results/Core Measures Results/Orders Lab Results Laboratory Tests Test 04/20/19 19:44 Range/Units White Blood Count 8.2 4.3-11.0 10^3/uL Red Blood Count 5.85 4.35-5.85 10^6/uL Hemoglobin 16.9 13.3-17.7 G/DL Hematocrit 47 40-54 % Mean Corpuscular Volume 80 80-99 FL Mean Corpuscular Hemoglobin 29 25-34 PG Mean Corpuscular Hemoglobin Concent 36 32-36 G/DL Red Cell Distribution Width 12.7 10.0-14.5 % Platelet Count 288 130-400 10^3/uL Mean Platelet Volume 10.0 7.4-10.4 FL Neutrophils (%) (Auto) 57 42-75 % Lymphocytes (%) (Auto) 34 12-44 % Monocytes (%) (Auto) 6 0-12 % Eosinophils (%) (Auto) 2 0-10 % Basophils (%) (Auto) 1 0-10 % Neutrophils # (Auto) 4.7 1.8-7.8 X 10^3 Lymphocytes # (Auto) 2.8 1.0-4.0 X 10^3 Monocytes # (Auto) 0.5 0.0-1.0 X 10^3 Eosinophils # (Auto) 0.2 0.0-0.3 10^3/uL Basophils # (Auto) 0.1 0.0-0.1 10^3/uL Prothrombin Time 14.1 12.2-14.7 SEC INR Comment 1.1 0.8-1.4 Activated Partial Thromboplast Time 33 24-35 SEC Sodium Level 141 135-145 MMOL/L Potassium Level 3.6 3.6-5.0 MMOL/L Chloride Level 105 98-107 MMOL/L Carbon Dioxide Level 24 21-32 MMOL/L Anion Gap 12 5-14 MMOL/L Blood Urea Nitrogen 10 7-18 MG/DL Creatinine 1.15 0.60-1.30 MG/DL Estimat Glomerular Filtration Rate > 60 BUN/Creatinine Ratio 9 Glucose Level 100 70-105 MG/DL Calcium Level 9.9 8.5-10.1 MG/DL Corrected Calcium 9.5 8.5-10.1 MG/DL Magnesium Level 1.8 1.6-2.4 MG/DL Total Bilirubin 0.5 0.1-1.0 MG/DL Aspartate Amino Transf (AST/SGOT) 14 5-34 U/L Alanine Aminotransferase (ALT/SGPT) 25 0-55 U/L Alkaline Phosphatase 85 40-136 U/L Myoglobin 33.2 10.0-92.0 NG/ML Troponin I < 0.028 <0.028 NG/ML Total Protein 7.8 6.4-8.2 GM/DL Albumin 4.5 3.2-4.5 GM/DL My Orders Orders - TESSIE RAI SOLAR PROJECT ENGINEER Cbc With Automated Diff (04/20/19 19:46) Magnesium (04/20/19 19:46) Chest 1 View, Ap/Pa Only (04/20/19 19:46) Ekg Tracing (04/20/19 19:46) Cardiac Profile 1 (04/20/19 19:46) Comprehensive Metabolic Panel (04/20/19 19:46) Myoglobin Serum (04/20/19 19:46) Protime With Inr (04/20/19 19:46) Partial Thromboplastin Time (04/20/19 19:46) O2 (04/20/19 19:46) Monitor-Rhythm Ecg Trace Only (04/20/19 19:46) Ed Iv/Invasive Line Start (04/20/19 19:46) Aspirin Chewable Tablet (Baby Aspirin Ch (04/20/19 20:00) Ed Iv/Invasive Line Start (04/20/19 20:07) Ns Iv 1000 Ml (Sodium Chloride 0.9%) (04/20/19 20:07) Hydroxyzine Cap/Tab (Vistaril) (04/20/19 20:15) Medications Given in ED Current Medications Medications Dose Ordered Sig/Tamra Route Start Time Stop Time Status Last Admin Dose Admin Aspirin 324 mg ONCE ONCE PO 04/20/19 20:00 04/20/19 20:01 DC 04/20/19 19:55 324 MG Hydroxyzine Pamoate 50 mg ONCE ONCE PO 04/20/19 20:15 04/20/19 20:16 DC 04/20/19 20:19 50 MG Vital Signs/I&O 04/20/19 04/20/19 19:44 19:47 Temp 97.6 Pulse 101 Resp 18 B/P (MAP) 143/108 (120) Pulse Ox 99 99 O2 Delivery Room Air FiO2 99 Progress Progress Note : Time: 19:50 Progress Note Patient seen and evaluated for chest pain workup. 2039 patient reassured that at this point does not seem cardiac in nature. He is extremely anxious, will give him Vistaril 50 mg by mouth. 2100 family at bedside, patient reports some improvement in symptoms. Family at bedside, workup as an essentially normal. Blood pressure has been labile, patien t has been prescribed beta blockers and he has not taken them. He is fixated on the LVH diagnosis, despite Dr. Griffin assuring him it is stable and won't affect his quality of life. 2129 patient's blood pressure 140s/90s, anxiety improved. Discharge instructions and return caution reviewed. Initial ECG Impression Date: Apr 20, 2019 Initial ECG Impression Time: 19:44 Initial ECG Rate: 107 Initial ECG Rhythm: S.Tach Initial ECG Intervals: Normal Initial ECG Intervals VA 154, QRSD 96, QT 320, QTC 427. [place] P 22, QRS 43, T -30. Initial ECG Impression: Normal Initial ECG Comparisson: Unchanged (from previous EKG on 04/03/19) Diagnostic Imaging Diagonstic Imaging: Xray Plain Films/CT/US/NM/MRI: chest Comments CHEST 1 VIEW, AP/PA ONLY CHEST 1 VIEW, AP/PA ONLY Indication: Tachycardia. Comparison: 10/07/2018 Findings: No focal airspace disease in the visualized lungs. Please note that the posterior lower lobes are poorly evaluated by portable radiography. No pleural effusion or pneumothorax. Normal cardiomediastinal silhouette. Impression: No acute cardiopulmonary process by portable radiography. Dictated by: Dictated on workstation # [id number] Dict: 04/20/192026 Trans: 04/20/192026 Interpreted by: BOOKER BOYCE MD Electronically signed by: BOOKER BOYCE MD 04/20/192026 Departure Impression Primary Impression: Non-cardiac chest pain Additional Impression: Acute anxiety Disposition: 01 HOME, SELF-CARE Condition: Improved Departure-Patient Inst. Decision time for Depature: 21:30 Referrals: ROSEANN KELLEY DO (PCP/Family) Primary Care Physician Patient Instructions: Chest Pain That Is Not Caused by the Heart (DC), Anxiety, Adult (DC) Add. Discharge Instructions: Continue your medication. Follow-up with your psychiatrist if anxiety is not improving. Follow-up with Dr. Griffin for cardiac workup. Return to emergency department for chest pain. All discharge instructions reviewed with patient and/or family. Voiced understanding. Copy Copies To 1: AZIZA GRIFFIN MD FACP FAC CCDS TESSIE RAI Apr 20, 2019 19:53
[2019-04-20 19:55] LABS: BASOPHILS # (AUTO) 0.1 10^3/uL (0.0-0.1); BASOPHILS % (AUTO) 1 % (0-10); EOSINOPHILS # (AUTO) 0.2 10^3/uL (0.0-0.3); EOSINOPHILS % (AUTO) 2 % (0-10); HEMATOCRIT 47 % (40-54); HEMOGLOBIN 16.9 G/DL (13.3-17.7); LYMPHOCYTES # (AUTO) 2.8 X 10^3 (1.0-4.0); LYMPHOCYTES % (AUTO) 34 % (12-44); MEAN CORPUSCULAR HEMOGLOBIN 29 PG (25-34); MEAN CORPUSCULAR HGB CONC 36 G/DL (32-36); MEAN CORPUSCULAR VOLUME 80 FL (80-99); MONOCYTES # (AUTO) 0.5 X 10^3 (0.0-1.0); MONOCYTES % (AUTO) 6 % (0-12); NEUTROPHILS # (AUTO) 4.7 X 10^3 (1.8-7.8); NEUTROPHILS % (AUTO) 57 % (42-75); PLATELET COUNT 288 10^3/uL (130-400); RED CELL DISTRIBUTION WIDTH 12.7 % (10.0-14.5); WHITE BLOOD COUNT 8.2 10^3/uL (4.3-11.0)
[2019-04-20] MEDS ORDERED: ASPIRIN 81 MG CHEW (CHILDREN'S ASA) PO ONE (20:00)
[2019-04-20 20:02] LABS: INR 1.1 (0.8-1.4); PROTHROMBIN TIME PATIENT 14.1 SEC (12.2-14.7)
[2019-04-20 20:07] LABS: ALANINE AMINOTRANSFERASE 25 U/L (0-55); ALBUMIN 4.5 GM/DL (3.2-4.5); ALKALINE PHOSPHATASE 85 U/L (40-136); BILIRUBIN,TOTAL 0.5 MG/DL (0.1-1.0); BUN/CREATININE RATIO 9; CALCIUM 9.9 MG/DL (8.5-10.1); CARBON DIOXIDE 24 MMOL/L (21-32); CHLORIDE 105 MMOL/L (98-107); CREATININE SERUM 1.15 MG/DL (0.60-1.30); GFR ESTIMATED > 60; GLUCOSE 100 MG/DL (70-105); MAGNESIUM 1.8 MG/DL (1.6-2.4); POTASSIUM 3.6 MMOL/L (3.6-5.0); SODIUM 141 MMOL/L (135-145); TOTAL PROTEIN 7.8 GM/DL (6.4-8.2)
[2019-04-20] MEDS ORDERED: NS IV 1000 ML 1,000 ML IV SCH (20:07)
[2019-04-20] MEDS ORDERED: hydrOXYzine (VISTARIL/ATARAX) 25 MG capsule/tablet PO ONE (20:15)
--- NOTE | 2019-04-20 20:30 | Diagnostic Imaging Report ---
CHEST 1 VIEW, AP/PA ONLY Indication: Tachycardia. Comparison: 10/07/2018 Findings: No focal airspace disease in the visualized lungs. Please note that the posterior lower lobes are poorly evaluated by portable radiography. No pleural effusion or pneumothorax. Normal cardiomediastinal silhouette. Impression: No acute cardiopulmonary process by portable radiography. Dictated by: Dictated on workstation # [id number]
[2019-04-20 21:36] VITALS: BP 143/108
== END 2019-04-20 21:35 | disposition home or self-care (01) ==
LOC: EDUNIT# 19:38 → ER 19:41
DX: R07.89 Other chest pain (principal); F41.9 Anxiety disorder, unspecified; I10 Essential (primary) hypertension; F32.9 Major depressive disorder, single episode, unspecified; Z87.891 Personal history of nicotine dependence; Z91.040 Latex allergy status; Z90.49 Acquired absence of other specified parts of digestive tract
CPT/HCPCS: 36415; 71045; 80053; 83735; 83874; 84484; 85025; 85610; 85730; 93005; 93041

== ENCOUNTER 2019-05-04 14:55 | Emergency (ER) | payer OTHER ==
[~2019-05-04] VITALS: Ht 72 cm; Wt 113.6 kg
[2019-05-04 15:39] LABS: BASOPHILS % (AUTO) 1 % (0-10); EOSINOPHILS # (AUTO) 0.1 10^3/uL (0.0-0.3); EOSINOPHILS % (AUTO) 2 % (0-10); HEMATOCRIT 44 % (40-54); HEMOGLOBIN 16.4 G/DL (13.3-17.7); LYMPHOCYTES # (AUTO) 2.1 X 10^3 (1.0-4.0); LYMPHOCYTES % (AUTO) 36 % (12-44); MEAN CORPUSCULAR HEMOGLOBIN 30 PG (25-34); MEAN CORPUSCULAR HGB CONC 37 G/DL (32-36); MEAN CORPUSCULAR VOLUME 80 FL (80-99); MEAN PLATELET VOLUME 11.1 FL (7.4-10.4); MONOCYTES # (AUTO) 0.4 X 10^3 (0.0-1.0); MONOCYTES % (AUTO) 7 % (0-12); NEUTROPHILS # (AUTO) 3.1 X 10^3 (1.8-7.8); NEUTROPHILS % (AUTO) 54 % (42-75); PLATELET COUNT 318 10^3/uL (130-400); RED CELL DISTRIBUTION WIDTH 12.9 % (10.0-14.5); WHITE BLOOD COUNT 5.8 10^3/uL (4.3-11.0)
[2019-05-04 16:20] LABS: ALANINE AMINOTRANSFERASE 12 U/L (0-55); ALBUMIN 4.6 GM/DL (3.2-4.5); ALKALINE PHOSPHATASE 71 U/L (40-136); AMYLASE 50 U/L (25-125); BILIRUBIN,TOTAL 0.5 MG/DL (0.1-1.0); BUN/CREATININE RATIO 10; CALCIUM 9.8 MG/DL (8.5-10.1); CARBON DIOXIDE 25 MMOL/L (21-32); CHLORIDE 104 MMOL/L (98-107); CREATININE SERUM 1.02 MG/DL (0.60-1.30); GFR ESTIMATED > 60; GLUCOSE 81 MG/DL (70-105); LIPASE 25 U/L (8-78); POTASSIUM 3.8 MMOL/L (3.6-5.0); SODIUM 141 MMOL/L (135-145); TOTAL PROTEIN 7.7 GM/DL (6.4-8.2)
--- NOTE | 2019-05-04 17:55 | ED Abdominal Pain ---
General Chief Complaint: Abdominal/GI Problems Stated Complaint: ABD/BACK PAIN Nursing Triage Note: Pt amb to room #8 w/o difficulty with c/o upper lt side abd discomfort radiating to lt upper back. Reports intermittent symptoms for apporx 2 months that have increased in severity. Reports to have devloped nausea on this day with no emesis experienced. Pt states, "it just feels like that area is sick." Describes discomfort as stabbing. 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 Sepsis Screen: No Definite Risk Source of Information: Patient Exam Limitations: No Limitations History of Present Illness Date Seen by Provider: May 04, 2019 Time Seen by Provider: 15:33 Initial Comments This 38-year-old gentleman presents to the emergency room with complaints of left upper quadrant pain that radiates to his back. He has been worsening for about one to 2 months. He was seen a month ago for similar symptoms. He has been on Protonix and Prilosec in the past. He most recently has been taking Protonix but takes inconsistently because he believes it keeps him awake at night. He has had a history of acid reflux and left upper quadrant pain, possibly due to gastritis. He reports recent constipation until about a week or 2 ago. He states he had taken a round of azithromycin and was started on Vybrid around the time the pain began to become problematic a month or 2 ago. He recently noted severe pain after taking Aleve. He has nausea without vomiting. Allergies and Home Medications Allergies Coded Allergies: NKANo Known Allergies (Verified Allergy, Unknown, 10/21/06) latex (Verified Allergy, Unknown, 10/07/18) Home Medications Clonazepam 1 Mg Tablet, 1 MG PO TID, (Reported) Sucralfate 1 Gm Tablet, 1 GM PO QIDACHS Prescribed by: AUBREY MONTALVO on 03/22/18 0012 Patient Home Medication List Home Medication List Reviewed: Yes Review of Systems Review of Systems Constitutional: no symptoms reported EENTM: No Symptoms Reported Respiratory: No Symptoms Reported Cardiovascular: No Symptoms Reported Gastrointestinal: See HPI Genitourinary: No Symptoms Reported Musculoskeletal: no symptoms reported Skin: no symptoms reported Psychiatric/Neurological: No Symptoms Reported Endocrine: No Symptoms Reported Hematologic/Lymphatic: No Symptoms Reported Past Vkzcmyf-Rwklsi-Bbafhd Hx Patient Social History Alcohol Use: Denies Use Recreational Drug Use: No Drug of Choice: POT Smoking Status: Former Smoker Type Used: Cigarettes, Electronic/Vapor Former Smoker, Quit: Oct 02, 2006 2nd Hand Smoke Exposure: No Recent Foreign Travel: No Contact w/Someone Who Travel: No Recent Infectious Disease Expo: No Recent Hopitalizations: No Immunizations Up To Date Tetanus Booster (TDap): Unknown PED Vaccines UTD: No Seasonal Allergies Seasonal Allergies: Yes Past Medical History Surgeries: Yes (X1 WISDOM TOOTH REMOVED,CUT FINGER REPAIRED) Appendectomy, Gallbladder Respiratory: No Cardiac: Yes Hypertension Neurological: No Reproductive Disorders: No Genitourinary: No Gastrointestinal: Yes Gastroesophageal Reflux Musculoskeletal: Yes Chronic Back Pain Endocrine: No HEENT: No Cancer: No Psychosocial: Yes Anxiety, Depression Integumentary: No Blood Disorders: No Physical Exam Vital Signs Vital Signs - First Documented 05/04/19 15:10 Temp 36.8 Pulse 107 Resp 17 B/P (MAP) 135/115 (122) Pulse Ox 100 O2 Delivery Room Air Capillary Refill : Less Than 3 Seconds Height/Weight/BMI Height: 6'0" Weight: 250lbs. oz. 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, no motor/sensory deficits, alert, normal mood/affect, oriented x 3 Skin: normal color, warm/dry Progress/Results/Core Measures Results/Orders Lab Results Laboratory Tests Test 05/04/19 15:25 05/04/19 15:54 Range/Units White Blood Count 5.8 4.3-11.0 10^3/uL Red Blood Count 5.53 4.35-5.85 10^6/uL Hemoglobin 16.4 13.3-17.7 G/DL Hematocrit 44 40-54 % Mean Corpuscular Volume 80 80-99 FL Mean Corpuscular Hemoglobin 30 25-34 PG Mean Corpuscular Hemoglobin Concent 37 H 32-36 G/DL Red Cell Distribution Width 12.9 10.0-14.5 % Platelet Count 318 130-400 10^3/uL Mean Platelet Volume 11.1 H 7.4-10.4 FL Neutrophils (%) (Auto) 54 42-75 % Lymphocytes (%) (Auto) 36 12-44 % Monocytes (%) (Auto) 7 0-12 % Eosinophils (%) (Auto) 2 0-10 % Basophils (%) (Auto) 1 0-10 % Neutrophils # (Auto) 3.1 1.8-7.8 X 10^3 Lymphocytes # (Auto) 2.1 1.0-4.0 X 10^3 Monocytes # (Auto) 0.4 0.0-1.0 X 10^3 Eosinophils # (Auto) 0.1 0.0-0.3 10^3/uL Basophils # (Auto) 0.0 0.0-0.1 10^3/uL Sodium Level 141 135-145 MMOL/L Potassium Level 3.8 3.6-5.0 MMOL/L Chloride Level 104 98-107 MMOL/L Carbon Dioxide Level 25 21-32 MMOL/L Anion Gap 12 5-14 MMOL/L Blood Urea Nitrogen 10 7-18 MG/DL Creatinine 1.02 0.60-1.30 MG/DL Estimat Glomerular Filtration Rate > 60 BUN/Creatinine Ratio 10 Glucose Level 81 70-105 MG/DL Calcium Level 9.8 8.5-10.1 MG/DL Corrected Calcium 8.5-10.1 MG/DL Total Bilirubin 0.5 0.1-1.0 MG/DL Aspartate Amino Transf (AST/SGOT) 13 5-34 U/L Alanine Aminotransferase (ALT/SGPT) 12 0-55 U/L Alkaline Phosphatase 71 40-136 U/L Total Protein 7.7 6.4-8.2 GM/DL Albumin 4.6 H 3.2-4.5 GM/DL Amylase Level 50 25-125 U/L Lipase 25 8-78 U/L Vital Signs/I&O 05/04/19 05/04/19 15:10 18:03 Temp 36.8 36.8 Pulse 107 76 Resp 17 17 B/P (MAP) 135/115 (122) 125/85 (122) Pulse Ox 100 100 O2 Delivery Room Air Blood Pressure Mean: 122 Departure Impression Primary Impression: Left upper quadrant pain Disposition: 01 HOME, SELF-CARE Condition: Improved Departure-Patient Inst. Decision time for Depature: 17:53 Referrals: ROSEANN KELLEY DO (PCP/Family) Primary Care Physician Patient Instructions: Acute Abdomen (Belly Pain), Adult (DC), Gastritis (DC) Add. Discharge Instructions: Try taking Protonix early in the day to avoid sleep disturbance. Take your medications with food or milk rather than on an empty stomach to help avoid stomach irritation. Take Carafate (sucralfate) 30 minutes before meals and again before bedtime. You may add Pepcid (famotidine) 20 mg twice daily for added and acid protection. Avoid the following: Eating large meals, eating close to bedtime, caffeine, carbonation, chocolate, citrus fruits and juices, tomato products, alcohol, tobacco, mints, NSAID medications such as ibuprofen or naproxen, fatty or greasy foods, spicy foods, or anything else you know irritates your stomach. Seek follow-up with your primary care provider as soon as possible to discuss repeat endoscopy for further evaluation of your abdominal pain. All discharge instructions reviewed with patient and/or family. Voiced understanding. ABIGAIL CARDENAS MD May 04, 2019 17:55
[2019-05-04 18:03] VITALS: BP 125/85
== END 2019-05-04 18:03 | disposition home or self-care (01) ==
LOC: ER 14:55 → EDUNIT# 14:55 → ER 18:03
DX: R10.12 Left upper quadrant pain (principal); I10 Essential (primary) hypertension; F41.9 Anxiety disorder, unspecified; F32.9 Major depressive disorder, single episode, unspecified; Z91.040 Latex allergy status; Z87.891 Personal history of nicotine dependence; Z90.49 Acquired absence of other specified parts of digestive tract
CPT/HCPCS: 36415; 80053; 82150; 83690; 85025

== ENCOUNTER 2019-05-17 07:02 | Day surgery (SDC) | payer OTHER ==
[2019-05-17] VITALS (9 sets, daily range): BP systolic 114–144; BP diastolic 90–98
[~2019-05-17] VITALS: Ht 182 cm; Wt 114.0 kg
[~2019-05-17 07:02] MED LIST changes: +HEParin (CATH LAB) 2,000 ML IV ONE; +LIDOCAINE 1% INJ 20 ML 20 ML VIAL ONE; +NS IV 1000 ML 1,000 ML ONE
[2019-05-17] MEDS ORDERED: NS IV 1000 ML 1,000 ML IV SCH ×2 (07:15→09:40)
[2019-05-17 07:28] LABS: HEMOGLOBIN 15.9 G/DL (13.3-17.7); MEAN PLATELET VOLUME 10.1 FL (7.4-10.4); RED CELL DISTRIBUTION WIDTH 13.4 % (10.0-14.5)
[2019-05-17] MEDS ORDERED: ESCI10TA PO (07:36)
[2019-05-17] MEDS ORDERED: CETI10TA17 PO (07:36)
[2019-05-17] MEDS ORDERED: SUCR1TAB36 PO (07:36)
[2019-05-17] MEDS ORDERED: PANT40TA2 PO (07:36)
[2019-05-17] MEDS ORDERED: FLUT9.9S NS (07:38)
--- NOTE | 2019-05-17 07:39 | NUR ---
SPOKE WITH PT (HE BROUGHT IN HIS BOTTLES) TO COMPLETE THE MED REC. PT WAS ABLE TO TELL ME HOW/WHEN HE TAKES ALL HIS MEDICATION. OTC MEDS: FLUTICASONE NASAL SPRAY: UD CETIRIZINE: 1 TAB HS
[2019-05-17 07:43] LABS: PROTHROMBIN TIME PATIENT 13.7 SEC (12.2-14.7)
[2019-05-17 07:50] LABS: ALANINE AMINOTRANSFERASE 13 U/L (0-55); ALBUMIN 4.5 GM/DL (3.2-4.5); ALKALINE PHOSPHATASE 75 U/L (40-136); BILIRUBIN,TOTAL 0.6 MG/DL (0.1-1.0); BUN/CREATININE RATIO 9; CALCIUM 9.5 MG/DL (8.5-10.1); CARBON DIOXIDE 27 MMOL/L (21-32); CHLORIDE 107 MMOL/L (98-107); CHOLESTEROL 174 MG/DL (< 200); CREATININE SERUM 1.09 MG/DL (0.60-1.30); GFR ESTIMATED > 60; GLUCOSE 89 MG/DL (70-105); HDL CHOLESTEROL 30 MG/DL (40-60); POTASSIUM 3.3 MMOL/L (3.6-5.0); SODIUM 143 MMOL/L (135-145); TOTAL PROTEIN 7.5 GM/DL (6.4-8.2); TRIGLYCERIDES 109 MG/DL (<150); VLDL CHOLESTEROL 22 MG/DL (5-40)
[2019-05-17] MEDS ORDERED: fentaNYL INJECTION 100 MCG/2 ML AMP ONE (08:01)
[2019-05-17] MEDS ORDERED: MIDAZOLAM 2 MG/2 ML (VERSED) VIAL ONE ×3 (08:01→08:33)
--- NOTE | 2019-05-17 09:40 | Cardiac Procedure Note-CS/ASA ---
Pre-Procedure Note Pre-Op Procedure Note H&P Reviewed The H&P was reviewed, patient examined and no changes noted. Date H&P Reviewed: May 17, 2019 Time H&P Reviewed: 08:40 Conscious Sedation Pre-Proced Time 08:40 ASA Score 3 For ASA 3 and 4: Consider anesthesia and medical clearance. Also, for patients with a history of failed moderate sedation consider anesthesia. Airway Lungs Heart ASA score ASA 1: a normal healthy patient ASA 2: a patient with a mild systemic disease (mid diabetes, controlled hypertension, obesity ASA 3: a patient with a severe systemic disease that limits activity (angina, COPD, prior Myocardial infarction) ASA 4: a patient with an incapacitating disease that is a constant threat to life (CHF, renal failure) ASA 5: a moribund patient not expected to survive 24 hrs. (ruptured aneurysm) ASA 6: a declared brain- patient whose organs are being harvested. For emergent operations, add the letter E after the classification Mallampati Classification Grade 2 Sedation Plan Analgesia, Amnesia, Plan communicated to team members, Discussed options with patient/fam, Discussed risks with patient/fam The patient is an appropriate candidate to undergo the planned procedure, sedation, and anesthesia. The patient immediately re-assessed prior to indication. AZIZA SIMS MD FACP FAC CCDS May 17, 2019 09:40
--- NOTE | 2019-05-17 09:44 | Discharge Inst-Cardiology ---
Discharge Inst-Cardiac Discharge Medications Continued Medications: Cetirizine HCl (Cetirizine HCl) 10 Mg Tablet 10 MG PO HS, TAB Clonazepam (Klonopin) 1 Mg Tablet 1 MG PO TID, TAB TAKES AT: 0800,1400,2200 Escitalopram Oxalate (Lexapro) 10 Mg Tablet 5 MG PO DAILY, TAB TAKES 1/2 OF A 10MG TAB TO EQUAL 5MG DAILY Fluticasone Propionate (Flonase Allergy Relief) 9.9 Ml [place].susp 1 SPRAY NS DAILY PRN for CONGESTION, #1 EACH 1 SPRAY EACH NARE DAILY Pantoprazole Sodium (Protonix) 40 Mg Tablet.dr 40 MG PO 1700, TAB Sucralfate (Carafate) 1 Gm Tablet 1 GM PO TID, TAB PT DISSOLVES TAB IN WATER TO MAKE A SLURRY AZIZA SIMS MD FACP FAC CCDS May 17, 2019 09:44
[2019-05-17] MEDS ORDERED: PATIENT MAY USE OWN MEDS, ALL PO SCH (09:45)
--- NOTE | 2019-05-17 09:46 | Discharge Inst-Post CATH ---
Discharge Inst-CATH/EP Post Cardiac Cath/EP D/C Inst Follow Up/Plan F/u with Dr Griffin in 2 weeks ACTIVITY * Go Home directly and rest. * Limit activity of the leg (or wrist if it was used) for 7 days including aerobics, swimming, jogging, bicycling, etc. * Restrict stair-climbing for 7 days if possible, if not, climb up with your no n-cath leg, then bring together on the same step. * Avoid lifting, pushing, pulling or excessive movement of the affected ext remity for 7 days. * Customary sexual activity may be resumed after 2 days-use caution not to use a position that strains or causes pain to the affected extremity. * No driving for 24 hours. * NO SMOKING. * Avoid straining for bowel movements for 7 days. * Gentle walking on level ground is allowed. * Returning to work will depend on the type of procedure and the results. Your doctor will discuss this with you. CALL YOUR DOCTOR FOR ANY OF THE FOLLOWING: *If bleeding from the puncture site occurs- Apply gentle pressure to site with clean cloth and call your doctor or EMS. * If a knot or lump forms under the skin, increases in size, or causes pain. * If bruising appears to be worsening or moving further down your leg instead of disappearing. * Temperature above 101 F. CARE OF YOUR GROIN INCISION; * Bruising or purple discoloration of the skin near the puncture site is common. * You may shower only, no bathtub bathing for 5 days. Be careful to avoid slipping as your leg may feel stiff. * If a closure device was used on your femoral artery, please see the attached guide regarding care of the device and your leg. * Leave dressing on FOR 24 hours. CARE OF YOUR WRIST INCISION; * Bruising or purple discoloration of the skin near the puncture site is common. * You may shower. * DO NOT submerge wrist. * Leave dressing on FOR 24 hours. AZIZA GRIFFIN MD FACP FAC CCDS May 17, 2019 09:45
--- NOTE | 2019-05-17 11:44 | CARDIAC CATHETERIZATION ---
DATE OF SERVICE: 05/17/2019 CARDIAC CATHETERIZATION REPORT The patient is a 38-year-old man, who has been having recurrent chest discomfort and has had many emergency room visits for that. He remains concerned that the source of his discomfort is cardiovascular disease. Cardiac catheterization was carried out today after having obtained an informed consent. PROCEDURE IN DETAIL: He was brought to the cardiac catheterization laboratory in a fasting state. Right groin was prepared and draped in the usual sterile fashion. Lidocaine 1% was used for local anesthesia. Modified Seldinger technique was used to advance a 5-[place] sheath in the right femoral artery. Angiography of the right femoral artery was carried out through the sheath. A 5-[place] JL4 catheter was used for left coronary angiography. A 5-[place] JR4 catheter was used for right coronary angiography. A 5-[place] pigtail catheter was used for left heart catheterization, left ventricular angiography. A 5-[place] pigtail catheter was pulled back to the aorta. Aortic root angiography was performed. Aortic arch angiography was performed. At the end of the procedure, Mynx was used to achieve hemostasis. He tolerated the procedure well. HEMODYNAMICS: Left ventricular end-diastolic pressure following coronary angiography was 12 mmHg. There is no significant pressure gradient on pullback across the aortic valve. Ascending aortic pressure was 136/88 with a mean of 109 mmHg. CORONARY ANGIOGRAPHY: Left main coronary artery, left anterior descending artery, left circumflex artery, right coronary artery are angiographically normal. Right coronary artery is dominant. LEFT VENTRICULAR ANGIOGRAPHY: Left ventricular angiography was carried out in the right anterior oblique projection. Global left ventricular systolic function appears normal. Left ventricular ejection fraction is estimated to be 50 to 55%. AORTIC ROOT ANGIOGRAPHY: Aortic root angiography did not indicate any significant aortic root enlargement. Aortic valve is trileaflet. No significant aortic regurgitation is seen. AORTIC ARCH ANGIOGRAPHY: Aortic arch angiography did not indicate any significant thoracic aortic aneurysm or dissection. Neck arteries, to the extent visualized, do not exhibit significant disease. CONCLUSIONS: 1. Angiographically normal coronary arteries. 2. Normal global left ventricular systolic function with an ejection fraction of 50 to 55%. 3. Normal left ventricular end-diastolic pressure. 4. No evidence of any thoracic aortic aneurysm or dissection. DISCUSSION AND RECOMMENDATIONS: Based on results of the study, the focus of cardiovascular management remains at risk factor modification. There is no evidence of cardiovascular source of his chest discomfort. Outpatient followup is advised. Job ID: [id number] DocumentID: [id number] Dictated Date: 05/17/2019 09:32:04 Hairspring Adjuster Date: 05/17/2019 11:43:57 Dictated By: AZIZA SIMS MD, MA, FACP, FACC,
== END 2019-05-17 13:00 | disposition home or self-care (01) ==
LOC: CATH 07:02 → SDC 09:55 → CATH 13:00
PROVIDERS: ATTEND Internal Medicine Cardiovascular Disease
DX: R07.9 Chest pain, unspecified (principal); I11.9 Hypertensive heart disease without heart failure; F41.9 Anxiety disorder, unspecified; Z90.49 Acquired absence of other specified parts of digestive tract; Z90.89 Acquired absence of other organs; Z87.891 Personal history of nicotine dependence; Z91.040 Latex allergy status; Z79.899 Other long term (current) drug therapy; Z82.49 Family history of ischemic heart disease and other diseases of the circulatory system
CPT/HCPCS: 36221; 36415; 36430; 80053; 80061; 85027; 85610; 85730; 87081; 93458; 93567